=== PATIENT | male | born 1945 | race Two or more races ===

== ENCOUNTER 2022-11-08 09:14 | Outpatient (REF) | payer MEDICARE, SELFPAY ==
[2022-11-08 10:30] LABS: Hematocrit 46.3 % (42.0-52.0); Hemoglobin 15.2 g/dl (14.0-18.0); Mean Corpuscular HGB Conc 32.8 g/dl (31.0-36.0); Mean Corpuscular Hemoglobin 30.7 pg (27.0-33.0); Mean Corpuscular Volume 93.5 fL (80.0-98.0); Mean Platelet Volume 11.2 fL (9.4-12.4); Platelet Count 255 X10*3/uL (160-400); Red Blood Count 4.95 X10*6/uL (4.60-5.80); Red Cell Distribution Width 13.1 % (11.0-16.0); White Blood Count 10.6 X10*3/uL (4.8-10.8)
[2022-11-08 11:18] LABS: Alanine Aminotransferase 14 U/L (0-40); Albumin Level 4.4 g/dL (3.5-5.0); Alkaline Phosphatase 94 U/L (39-117); Anion Gap 16 (12-20); Aspartate Amino Transferase 19 U/L (5-37); Bilirubin Total 0.6 mg/dL (0.0-1.0); Blood Urea Nitrogen 16 mg/dL (9-16); Calcium 9.5 mg/dL (8.4-10.2); Carbon Dioxide 25 mmol/L (22-29); Chloride 105 mmol/L (96-108); Cholesterol 215 mg/dL; Estimated Glomerular Filt Rate 55; Glucose Fasting 132 mg/dL (60-99); HDL Cholesterol 52 mg/dL; LDL Cholesterol Calculated 148 mg/dl; Potassium 3.9 mmol/L (3.3-5.1); Sodium 142 mmol/L (135-145); Total Protein 7.6 g/dL (6.5-8.0); Triglycerides 77 mg/dL
[2022-11-08 11:18] LABS: Microalbum/Creatinine Ratio Ur 146.4 ug/mg cr
== END 2022-11-08 09:15 | disposition home or self-care (01) ==
LOC: HO.LAB 09:14
PROVIDERS: PCP Physician Assistant; Visit Provider Physician Assistant
DX: Z12.5 Encounter for screening for malignant neoplasm of prostate (principal); Z13.1 Encounter for screening for diabetes mellitus; I10 Essential (primary) hypertension
CPT/HCPCS: 36415; 80053; 80061; 82043; 84153; 84443; 85027

== ENCOUNTER 2022-11-16 08:47 | Outpatient (REF) | payer MEDICARE, SELFPAY ==
[2022-11-16 16:35] LABS: Urine Cytology See Pathology rpt
== END 2022-11-16 08:48 | disposition home or self-care (01) ==
LOC: HO.LAB 08:47
PROVIDERS: PCP Physician Assistant; Visit Provider Urology
DX: R97.20 Elevated prostate specific antigen [PSA] (principal); N40.1 Benign prostatic hyperplasia with lower urinary tract symptoms; R31.29 Other microscopic hematuria; R80.9 Proteinuria, unspecified; F17.200 Nicotine dependence, unspecified, uncomplicated; Z71.6 Tobacco abuse counseling
CPT/HCPCS: 51798; 88112; 99202

== ENCOUNTER 2022-12-14 09:53 | Outpatient (REF) | payer MEDICARE, SELFPAY ==
[2022-12-14 11:45] LABS: Estimated Average Glucose 137 mg/dL; Hemoglobin A1c % 6.4 %
[2022-12-14 12:38] LABS: Alanine Aminotransferase 13 U/L (0-40); Albumin Level 4.2 g/dL (3.5-5.0); Alkaline Phosphatase 88 U/L (39-117); Anion Gap 14 (12-20); Aspartate Amino Transferase 18 U/L (5-37); Bilirubin Total 0.7 mg/dL (0.0-1.0); Blood Urea Nitrogen 17 mg/dL (9-16); Calcium 9.2 mg/dL (8.4-10.2); Carbon Dioxide 23 mmol/L (22-29); Chloride 107 mmol/L (96-108); Estimated Glomerular Filt Rate > 60; Glucose Fasting 123 mg/dL (60-99); Potassium 3.9 mmol/L (3.3-5.1); Sodium 140 mmol/L (135-145); Total Protein 7.4 g/dL (6.5-8.0)
[2023-01-05 22:54] LABS: PSA, Ultra Sensitive 6.18 ng/mL
== END 2022-12-14 09:54 | disposition home or self-care (01) ==
LOC: HO.LAB 09:53
PROVIDERS: Urology; PCP Physician Assistant; Visit Provider Physician Assistant
DX: R97.20 Elevated prostate specific antigen [PSA] (principal); R73.01 Impaired fasting glucose; Z12.5 Encounter for screening for malignant neoplasm of prostate
CPT/HCPCS: 36415; 80053; 83036; 84153

== ENCOUNTER 2023-01-10 09:52 | Outpatient (REF) | payer MEDICARE, SELFPAY ==
--- NOTE | ~2023-01-10 | US_ITS ---
EXAMINATION: US RETROPERITONEAL COMPLETE (RENAL) CLINICAL INFORMATION: Elevated prostate-specific antigen. COMPARISON: None available. TECHNIQUE: Real-time imaging of the kidneys and bladder. FINDINGS: RIGHT KIDNEY: 10.3 x 5.7 x 5.2 cm (SAG x AP x TRV). The kidney is normal in size, contour, and echogenicity. Renal cortical thickness is normal. 2 echogenic foci noted in the mid kidney measuring 4 mm and 3 mm in size consistent with nonobstructing calculi. No focal parenchymal lesions or hydronephrosis. LEFT KIDNEY: 10.8 x 5.9 x 5.7 cm (SAG x AP x TRV). The kidney is normal in size, contour, and echogenicity. Renal cortical thickness is normal. There are multiple echogenic foci seen in the left renal pelvis without twinkle artifact that probably represent vascular interfaces. No convincing shadowing calculi or focal parenchymal lesions. No hydronephrosis. BLADDER: Well distended and normal. Bilateral ureteral jets are demonstrated. Prevoid bladder volume is 150 mL. Postvoid bladder volume is 34 mL. Enlarged prostate, volume 161 mL. A large median lobe protrudes into the bladder. US/US retroperitoneal comp IMPRESSION: 1. Right-sided nonobstructing renal calculi. 2. Very large 161 mL prostate with median lobe protruding into the bladder. Postvoid residual is only 34 mL.
== END 2023-01-10 09:53 | disposition home or self-care (01) ==
LOC: HO.US 09:52
PROVIDERS: PCP Physician Assistant; Visit Provider Urology
DX: R97.20 Elevated prostate specific antigen [PSA] (principal); F17.200 Nicotine dependence, unspecified, uncomplicated; N40.1 Benign prostatic hyperplasia with lower urinary tract symptoms
CPT/HCPCS: 76770

== ENCOUNTER → 2023-01-19 08:55 | Outpatient (BNVA) | payer MEDICARE, SELFPAY | PROVIDERS: Visit Provider Urology | DX: R97.20 Elevated prostate specific antigen [PSA] (principal); N40.1 Benign prostatic hyperplasia with lower urinary tract symptoms; R31.29 Other microscopic hematuria; R39.12 Poor urinary stream; F17.210 Nicotine dependence, cigarettes, uncomplicated | CPT/HCPCS: 99212 ==

== ENCOUNTER 2023-02-01 09:13 | Outpatient (AMB) | payer MEDICARE, SELFPAY ==
[2023-02-01 09:18] VITALS: BP 180/80; PULSE 103; O2SAT 98; BMI 24.9
--- NOTE | 2023-02-01 09:18 | MHC.PC.OV ---
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 .. Hypertension: Last visit we started hydrochlorothiazide in transition to amlodipine, blood pressure remains elevated today in office. Patient remains asymptomatic. Denies any side effect from amlodipine or hydrochlorothiazide. PLAN: Will increase his hydrochlorothiazide to 25 for better blood pressure control .. Elevated PSA: Followed by Urology and has been started on finasteride fat mg. He declines prostate biopsy. Laboratory Tests 11/08/22 11/08/22 12/14/22 09:38 09:38 10:21 Hgb 15.2 Fasting Glucose 132 H Cholesterol 215 LDL Cholesterol, C alc 148 PSA Screen 7.30 H PSA Ultra-Sensitiv e 6.18 PFSH Surgical History History of dental surgery History of vasectomy Social History Housing: House Alcohol intake: current Alcohol intake frequency: a few times a week Alcohol type: beer Patient Tobacco Use Status: Current everyday Tobacco user Tobacco use type: Cigarette Cigarettes Per Day: 7 Years Smoked: 40 plus e-Cigarette/Vaping Use: Never Used Second Hand Smoke Exposure: Yes service: No Current occupational status: retired Current occupation: [employer] Cognitive needs: No Hearing needs: No Vision needs: Yes (glasses) Questionnaire PHQ-9 Over the last 2 weeks, how often have you been bothered by any of the following problems? 1. Little interest or pleasure in doing things: not at all 2. Feeling down, depressed, or hopeless: not at all 3. Trouble falling or staying asleep, or sleeping too much: not at all 4. Feeling tired or having little energy: not at all 5. Poor appetite or overeating: not at all 6. Feeling bad about yourself - or that you are a failure or have let yourself or your family down: not at all 7. Trouble concentrating on things, such as reading the newspaper or watching television: not at all 8. Moving or speaking so slowly that other people could have noticed. Or the opposite - being so fidgety or restless that you have been moving around a lot more than usual: not at all 9. Thoughts that you would be better off or of hurting yourself in some way: not at all Total score: 0 Source: Developed by Drs. He Cardozo, Damaris Galindo, Madan Jacome and colleagues, with an educational vonda from [employer]. Thrive Questionnaire Date Thrive assessed: 11/02/22 What is your living situation today?: I have a steady place to live Within the past 12 months, did the food you bought not last and you didn't have the money to get more?: Never true Within the past 12 months, did you worry whether your food would run out before you got money to buy more?: Never true Do you have trouble paying for medicines?: No Do you have trouble getting transportation to medical appointments?: No Do you have trouble paying your heating and electricity bill?: No Do you have trouble taking care of your child, family member or friend?: No Do you have trouble with day-to-day activities such as bathing, preparing meals, shopping, managing finances, etc.?: No Are you currently unemployed and looking for a job?: No Are you interested in more education?: No ROSANA-7 AMB Questionnaire ROSANA-7 Date ROSANA - 7 assessed: 11/02/22 Feeling nervous, anxious, or on edge: 0 = Not at all Not being able to stop or control worryin = Not at all Worrying too much about different things: 0 = Not at all Trouble relaxin = Not at all Being so restless that it is hard to sit still: 0 = Not at all Becoming easily annoyed or irritable: 0 = Not at all Feeling afraid as if something awful might happen: 0 = Not at all Total ROSANA-7 score (0-4 normal; 5-9 mild; 10-14 moderate; 15-21 severe): 0 Source: Developed by Drs. He Cardozo, Damaris Galindo, Madan Jacome and colleagues, with an educational vonda from [employer]. Physical exam (Primary Care) Vital Signs: Last Vital Signs Pulse 103 H 02/01/23 09:18 BP 180/80 H 02/01/23 09:18 Pulse Ox 98 02/01/23 09:18 Oxygen Delivery Method Room Air 02/01/23 09:18 BMI result Body Mass Index 24.9 Tobacco/Smoking Status: Tobacco use Status Tobacco use date assessed 11/02/22 02/01/23 09:20 Patient Tobacco Use Status Current everyday Tobacco 02/01/23 09:20 Tobacco use type Cigarette 02/01/23 09:20 e-Cigarette/Vaping Use Never Used 02/01/23 09:20 PHQ-9: PHQ-9 Score PHQ-9: Total score 0 02/01/23 09:26 Thrive Assessment: Date of Thrive Assessment Date Thrive assessed 11/02/22 02/01/23 09:20 Assessment and Plan Assessment & Plan (1) HTN (hypertension): Code(s): I10 - Essential (primary) hypertension Qualifiers: Hypertension type: primary hypertension Qualified Code(s): I10 - Essential (primary) hypertension Plan: Patient's blood pressure remains elevated 170 systolic. Fortunately remains asymptomatic. Will increase his hydrochlorothiazide to 25 mg. Continue amlodipine 10 mg. Again reinforce low-sodium diet. Advised to continue monitoring blood pressure at home with goal blood pressure to be below 140/90 (2) Tobacco dependence: Code(s): F17.200 - Nicotine dependence, unspecified, uncomplicated Plan: Unfortunately continues to smoke and patient has been working on reducing his smoking. Offered nicotine replacement though patient declines (3) Elevated PSA: Code(s): R97.20 - Elevated prostate specific antigen [PSA] (4) BPH (benign prostatic hyperplasia): Code(s): N40.0 - Benign prostatic hyperplasia without lower urinary tract symptoms Qualifiers: Lower urinary tract symptom presence: symptoms present Lower urinary tract symptom detail: weak urinary stream Qualified Code(s): N40.1 - Benign prostatic hyperplasia with lower urinary tract symptoms; R39.12 - Poor urinary stream Plan: Patient followed by Urology and has been set up for CT of kidneys. Has been started on finasteride for his BPH. Does still report at times having nocturia (5) Elevated fasting blood sugar: Code(s): R73.01 - Impaired fasting glucose Plan: Continue to follow fasting blood sugar Medications: New hydrochlorothiazide 25 mg PO DAILY 30 days 30 tabs 1RF I10 - Essential (primary) hypertension hydrochlorothiazide 25 mg PO DAILY 30 days 30 tabs 1RF I10 - Essential (primary) hypertension Discontinued hydrochlorothiazide Discontinued Reason: Doctor's Order 12.5 mg PO DAILY 30 days 30 tabs 1RF I10 - Essential (primary) hypertension Coding Level of Care Code Est Pt Level 4 (22427) Diagnoses HTN (hypertension) I10 Hypertension type: primary hypertension Tobacco dependence F17.200 Elevated PSA R97.20 BPH (benign prostatic hyperplasia) N40.1; R39.12 Lower urinary tract symptom presence: symptoms present Lower urinary tract symptom detail: weak urinary stream Elevated fasting blood sugar R73.01
[2023-02-01 09:41] VITALS: BP 170/80
== END 2023-02-01 09:47 | disposition home or self-care (01) ==
PROVIDERS: PCP Physician Assistant; Visit Provider Physician Assistant
DX: I10 Essential (primary) hypertension (principal); F17.200 Nicotine dependence, unspecified, uncomplicated; R97.20 Elevated prostate specific antigen [PSA]; N40.1 Benign prostatic hyperplasia with lower urinary tract symptoms; R39.12 Poor urinary stream; R73.01 Impaired fasting glucose
CPT/HCPCS: 99214

== ENCOUNTER 2023-03-08 09:13 | Outpatient (AMB) | payer MEDICARE, SELFPAY ==
[2023-03-08 09:15] VITALS: BP 175/110; PULSE 101; O2SAT 97; BMI 25.0
--- NOTE | 2023-03-08 09:15 | A.OFFPC_ITS ---
Vital Signs 03/08/23 09:15 Height 5 ft 10 in Weight 174 lb 8 oz BMI 25.0 BP 175/110 H Blood Pressure Location Lt brachial Position Sitting Pulse 101 H Pulse Source Pulse Oximeter Pulse Oximetry (%) 97 Oxygen Delivery Method Room Air Intake Visit Reasons: f/u HTN Allergies No Known Allergies Allergy (Verified 03/08/23 09:28) Medication List - Last Reconciled 03/08/23 by Guillermo Nicole PA-C amlodipine 10 mg PO DAILY 30 days finasteride (Proscar) 5 mg PO DAILY 90 days hydrochlorothiazide 25 mg PO DAILY 30 days miscellaneous medical supply (Blood Pressure Cuff) As directed Tobacco use date assessed: 11/02/22 Dental Screening Dental Screen Date: 03/08/23 Did you have a dental visit in the last 12 months?: No Did you have a dental problem in the last 6 months where you did not have access to dental care?: No Was dental information given to patient?: Patient declined HPI f/u HTN HPI Details Patient is 77-year-old male here today for follow-up visit, has past medical history significant for retention, tobacco dependency, BPH, protein urea. .. Hypertension:? Last visit we started hydrochlorothiazide and additionally amlodipine, blood pressure remains elevated today in office.? Patient remains asymptomatic without chest pain, shortness of breath, headaches vision issues.. Denies any side effect from amlodipine or hydrochlorothiazide. PLAN:? Will add on lisinopril. --> AGAIN WE DISCUSSED TESTING FOR SECONDARY REASONS FOR HIS ELEVATED BLOOD PRESSURE. ULTRASOUND RENAL DOPPLER AND ECHOCARDIOGRAM HAVE BEEN DISCUSSED THOUGH PATIENT WOULD LIKE TO HOLD OFF ON TRYING NEW BLOOD PRESSURE MEDICATION. ... Tobacco dependency: Unfortunately patient continues to smoke and feels is very difficult to completely quit. He reports his trigger is just stress in his life prior [facility] Surgical History History of dental surgery History of vasectomy Social History Housing: House Alcohol intake: current Alcohol intake frequency: a few times a week Alcohol type: beer Patient Tobacco Use Status: Current everyday Tobacco user Tobacco use type: Cigarette Cigarettes Per Day: 5 Years Smoked: 40 plus e-Cigarette/Vaping Use: Never Used Second Hand Smoke Exposure: Yes service: No Current occupational status: retired Current occupation: [employer] Cognitive needs: No Hearing needs: No Vision needs: Yes (glasses) Questionnaire PHQ-9 Over the last 2 weeks, how often have you been bothered by any of the following problems? 1. Little interest or pleasure in doing things: not at all 2. Feeling down, depressed, or hopeless: not at all 3. Trouble falling or staying asleep, or sleeping too much: not at all 4. Feeling tired or having little energy: not at all 5. Poor appetite or overeating: not at all 6. Feeling bad about yourself - or that you are a failure or have let yourself or your family down: not at all 7. Trouble concentrating on things, such as reading the newspaper or watching television: not at all 8. Moving or speaking so slowly that other people could have noticed. Or the opposite - being so fidgety or restless that you have been moving around a lot more than usual: not at all 9. Thoughts that you would be better off or of hurting yourself in some way: not at all Total score: 0 Source: Developed by Drs. He Cardozo, Damaris Galindo, Madan Jacome and colleagues, with an educational vonda from [email or web address]. Thrive Questionnaire Date Thrive assessed: 11/02/22 What is your living situation today?: I have a steady place to live Within the past 12 months, did the food you bought not last and you didn't have the money to get more?: Never true Within the past 12 months, did you worry whether your food would run out before you got money to buy more?: Never true Do you have trouble paying for medicines?: No Do you have trouble getting transportation to medical appointments?: No Do you have trouble paying your heating and electricity bill?: No Do you have trouble taking care of your child, family member or friend?: No Do you have trouble with day-to-day activities such as bathing, preparing meals, shopping, managing finances, etc.?: No Are you currently unemployed and looking for a job?: No Are you interested in more education?: No AUDIT C Alcohol Use Questionnaire (AUDIT-C) 1. How often do you have a drink containing alcohol?: 2-3 times a week 2. How many drinks containing alcohol do you have on a typical day when you are drinking?: 1 or 2 3. How often do you have six or more drinks on one occasion?: Never Total Score: 3 ROSANA-7 AMB Questionnaire ROSANA-7 Date ROSANA - 7 assessed: 11/02/22 Feeling nervous, anxious, or on edge: 0 = Not at all Not being able to stop or control worryin = Not at all Worrying too much about different things: 0 = Not at all Trouble relaxin = Not at all Being so restless that it is hard to sit still: 0 = Not at all Becoming easily annoyed or irritable: 0 = Not at all Feeling afraid as if something awful might happen: 0 = Not at all Total ROSANA-7 score (0-4 normal; 5-9 mild; 10-14 moderate; 15-21 severe): 0 Source: Developed by Drs. He Cardozo, Damaris Galindo, Madan Jacome and colleagues, with an educational vonda from [email or web address]. Review of Systems Const Denies headache(s) Eyes Denies loss of vision ENT Denies vertigo, Denies dizziness, Denies headache(s) and Denies sore throat Card Denies chest pain, Denies leg edema and Denies lightheadedness Resp Denies cough, Denies hemoptysis and Denies wheezing GI Denies abdominal pain, Denies melena, Denies constipation, Denies diarrhea and Denies vomiting Denies dysuria, Denies urinary frequency and Denies urinary urgency Musc Denies arthralgias, Denies joint swelling, Denies numbness and Denies tingling Neuro Denies Abnormal speech present, Denies behavioral changes, Denies vertigo, Denies dizziness, Denies headache(s), Denies loss of vision, Denies memory loss, Denies numbness and Denies tingling Psych Denies anxiety, Denies behavioral changes, Denies depression, Denies memory loss and Denies panic attacks Eder/Lymph Denies easy bleeding and Denies easy bruising Aller/Immun Denies wheezing Physical exam (Primary Care) Vital Signs: Last Vital Signs Pulse 101 H 03/08/23 09:15 BP 175/110 H 03/08/23 09:15 Pulse Ox 97 03/08/23 09:15 Oxygen Delivery Method Room Air 03/08/23 09:15 BMI result Body Mass Index 25.0 Tobacco/Smoking Status: Tobacco use Status Tobacco use date assessed 11/02/22 03/08/23 09:23 Patient Tobacco Use Status Current everyday Tobacco 03/08/23 09:23 Tobacco use type Cigarette 03/08/23 09:23 e-Cigarette/Vaping Use Never Used 03/08/23 09:23 Are you ready to quit: No Tobacco cessation counseling provided: Yes Relapse Prevention: discussed the importance of a supportive environment, discussed negative mood or depression after quitting, weight gain after smoking is common and discussed dietary, exercise and/or lifestyle changes Number of minutes spent counselin CPT code: 71367 - 4-10 Minutes PHQ-9: PHQ-9 Score PHQ-9: Total score 0 03/08/23 09:31 Thrive Assessment: Date of Thrive Assessment Date Thrive assessed 11/02/22 03/08/23 09:23 Const General: healthy appearing, no acute distress, alert and awake Nutritional Appearance: well nourished Orientation/consciousness: oriented to person, oriented to place and oriented to time HENMT Ears: TM's normal bilaterally General nose exam: Normal nasal mucous membranes and turbinates present Eyes Conjunctivae: conjunctivae normal Sclerae: sclerae normal Pupils: Equal, round and reactive pupils present Neck Neck: Yes no lymphadenopathy and Yes no JVD Thyroid: Thyroid normal Carotids: no bruits Resp Effort & Inspection: normal respiratory effort and not tachypneic Auscultation: no crackles, no rales, no rhonchi and no wheezes Cardio Rate: regular rate Rhythm: regular rhythm Heart sounds: no murmurs and normal S1 and S2 GI Palpation (GI): Soft to palpation, nontender, no hepatomegaly and no splenomegaly Auscultation: normal bowel sounds Skin General skin exam: no rashes or lesions noted and dry skin Neuro General: oriented to person, oriented to place and oriented to time Cranial nerves: Yes Equal, round and reactive pupils present Speech: No Abnormal speech present Gait exam (Neuro): Normal gait present Motor exam (neuro): no tremor noted Extrem Right upper extremity: full ROM Left upper extremity: full ROM Right lower extremity: full ROM; no edema Left lower extremity: full ROM; no edema Psych Mental Status: mental status grossly normal Speech and movement: Normal speech and movement present Affect: normal affect Attitude: cooperative Thought process: Normal thought process present Assessment and Plan Assessment & Plan (1) HTN (hypertension): Code(s): I10 - Essential (primary) hypertension Qualifiers: Hypertension type: primary hypertension Qualified Code(s): I10 - Essential (primary) hypertension Plan: Blood pressure remains elevated 170 is over 90s. At home sometimes does get 130s over 80s. He remains asymptomatic without any headaches, vision issues or chest discomforts. Will add on lisinopril 20 mg to his blood pressure med regime for better blood pressure control. --> WE DID DISCUSS SURGEON FOR SECONDARY CAUSES HYPERTENSION SUCH RENAL ARTERY STENOSIS AND GETTING AN ECHOCARDIOGRAM OF HEART TO RULE OUT STRUCTURAL HEART DISEASE THOUGH PATIENT WOULD LIKE TO HOLD OFF FOR NOW AND TRY 3RD BLOOD PRESSURE MEDICATION. (2) Tobacco dependence: Code(s): F17.200 - Nicotine dependence, unspecified, uncomplicated Plan: Patient does understand he needs to quit smoking. Offered him nicotine replacement and or medication to help him quit though he declines at this time. He would like to try to quit cold turkey Medications: New lisinopril-hydrochlorothiazide 20-25 mg 1 tab PO DAILY 30 days 30 tabs 1RF I10 - Essential (primary) hypertension On Hold hydrochlorothiazide Hold Comment: Doctor's Order 25 mg PO DAILY 30 days 30 tabs 1RF I10 - Essential (primary) hypertension Coding Level of Care Code Est Pt Level 3 (76736) Diagnoses HTN (hypertension) I10 Hypertension type: primary hypertension Tobacco dependence F17.200 Additional Codes Vital Signs *Quality* - CPT code: 99738 - 4-10 Minutes ([id number])
== END 2023-03-08 10:16 | disposition home or self-care (01) ==
PROVIDERS: PCP Physician Assistant; Visit Provider Physician Assistant
DX: I10 Essential (primary) hypertension (principal); F17.210 Nicotine dependence, cigarettes, uncomplicated
CPT/HCPCS: 99213

== ENCOUNTER 2023-04-03 08:41 | Outpatient (AMB) | payer MEDICARE, SELFPAY ==
[2023-04-03 08:59] VITALS: BP 172/86; PULSE 88; O2SAT 97; BMI 25.3
--- NOTE | 2023-04-03 08:59 | A.OFFPC_ITS ---
Vital Signs 04/03/23 08:59 Height 5 ft 10 in Weight 176 lb 4 oz BMI 25.3 BP 172/86 H Blood Pressure Location Lt brachial Position Sitting Pulse 88 Pulse Source Pulse Oximeter Pulse Oximetry (%) 97 Oxygen Delivery Method Room Air Intake Visit Reasons: f.u HTN Ventilating Expert Required: No Accompanied by: Self / Same As Patient Allergies No Known Allergies Allergy (Verified 04/03/23 09:11) Medication List - Last Reconciled 04/03/23 by Guillermo Nicole PA-C amlodipine 10 mg PO DAILY 30 days finasteride (Proscar) 5 mg PO DAILY 90 days hydrochlorothiazide 25 mg PO DAILY 30 days lisinopril-hydrochlorothiazide 20-25 mg 1 tab PO DAILY 30 days miscellaneous medical supply (Blood Pressure Cuff) As directed Tobacco use date assessed: 11/02/22 Fall risk assessment: No Falls in past year Last assessed Fall Risk: 04/03/23 Dental Screening Dental Screen Date: 04/03/23 Did you have a dental visit in the last 12 months?: No Did you have a dental problem in the last 6 months where you did not have access to dental care?: No Was dental information given to patient?: Yes HPI f.u HTN HPI Details Patient is 77-year-old male here today for follow-up visit, has past medical history significant for retention, tobacco dependency, BPH, protein urea. Patient is due for cataract removal on April 12 .. Hypertension:? Last visit we started lisinopril to his hydrochlorothiazide and additionally amlodipine, blood pressure remains elevated today in office.? He reports he does monitors blood pressure at home and still does report readings 150-160 systolic. Patient remains asymptomatic without chest pain, shortness of breath, headaches vision issues.. Denies any side effect from amlodipine or hydrochlorothiazide. PLAN:? Will increase dose of lisinopril to maximal dose. --> AGAIN WE DISCUSSED TESTING FOR NATASHA ORTIZ REASONS FOR HIS ELEVATED BLOOD PRESSURE. ULTRASOUND RENAL DOPPLER AND ECHOCARDIOGRAM HAVE BEEN DISCUSSED THOUGH PATIENT WOULD LIKE TO HOLD OFF ON TRYING NEW BLOOD PRESSURE MEDICATION. ... Tobacco dependency: Unfortunately patient continues to smoke and feels is very difficult to completely quit. He reports his trigger is just stress in his life prior [facility] Surgical History History of dental surgery History of vasectomy Social History Housing: House Alcohol intake: current Alcohol intake frequency: a few times a week Alcohol type: beer Patient Tobacco Use Status: Current everyday Tobacco user Tobacco use type: Cigarette Cigarettes Per Day: 5 Years Smoked: 40 plus e-Cigarette/Vaping Use: Never Used Second Hand Smoke Exposure: Yes service: No Current occupational status: retired Current occupation: [employer] Cognitive needs: No Hearing needs: No Vision needs: Yes (glasses) Questionnaire Thrive Questionnaire Date Thrive assessed: 11/02/22 ROSANA-7 AMB Questionnaire ROSANA-7 Date ROSANA - 7 assessed: 11/02/22 Source: Developed by Drs. He Cardozo, Damaris Galindo, Madan Jacome and colleagues, with an educational vonda from [employer] Review of Systems Const Denies headache(s) Eyes Denies loss of vision ENT Denies vertigo, Denies dizziness, Denies headache(s) and Denies sore throat Card Denies chest pain, Denies leg edema and Denies lightheadedness Resp Denies cough, Denies hemoptysis and Denies wheezing GI Denies abdominal pain, Denies melena, Denies constipation, Denies diarrhea and Denies vomiting Denies dysuria, Denies urinary frequency and Denies urinary urgency Musc Denies arthralgias, Denies joint swelling, Denies numbness and Denies tingling Neuro Denies Abnormal speech present, Denies behavioral changes, Denies vertigo, Denies dizziness, Denies headache(s), Denies loss of vision, Denies memory loss, Denies numbness and Denies tingling Psych Denies anxiety, Denies behavioral changes, Denies depression, Denies memory loss and Denies panic attacks Eder/Lymph Denies easy bleeding and Denies easy bruising Aller/Immun Denies wheezing Physical exam (Primary Care) Vital Signs: Last Vital Signs Pulse 88 04/03/23 08:59 BP 172/86 H 04/03/23 08:59 Pulse Ox 97 04/03/23 08:59 Oxygen Delivery Method Room Air 04/03/23 08:59 BMI result Body Mass Index 25.3 Tobacco/Smoking Status: Tobacco use Status Tobacco use date assessed 11/02/22 04/03/23 09:05 Patient Tobacco Use Status Current everyday Tobacco 04/03/23 09:05 Tobacco use type Cigarette 04/03/23 09:05 e-Cigarette/Vaping Use Never Used 04/03/23 09:05 Are you ready to quit: No Tobacco cessation counseling provided: Yes Relapse Prevention: discussed the importance of a supportive environment, discussed negative mood or depression after quitting, weight gain after smoking is common and discussed dietary, exercise and/or lifestyle changes Number of minutes spent counselin CPT code: 15029 - 4-10 Minutes Thrive Assessment: Date of Thrive Assessment Date Thrive assessed 11/02/22 04/03/23 09:05 Const General: healthy appearing, no acute distress, alert and awake Nutritional Appearance: well nourished Orientation/consciousness: oriented to person, oriented to place and oriented to time HENMT Ears: TM's normal bilaterally General nose exam: Normal nasal mucous membranes and turbinates present Eyes Conjunctivae: conjunctivae normal Sclerae: sclerae normal Pupils: Equal, round and reactive pupils present Neck Neck: Yes no lymphadenopathy and Yes no JVD Thyroid: Thyroid normal Carotids: no bruits Resp Effort & Inspection: normal respiratory effort and not tachypneic Auscultation: no crackles, no rales, no rhonchi and no wheezes Cardio Rate: regular rate Rhythm: regular rhythm Heart sounds: no murmurs and normal S1 and S2 GI Palpation (GI): Soft to palpation, nontender, no hepatomegaly and no splenomegaly Auscultation: normal bowel sounds Skin General skin exam: no rashes or lesions noted and dry skin Neuro General: oriented to person, oriented to place and oriented to time Cranial nerves: Yes Equal, round and reactive pupils present Speech: No Abnormal speech present Gait exam (Neuro): Normal gait present Motor exam (neuro): no tremor noted Extrem Right upper extremity: full ROM Left upper extremity: full ROM Right lower extremity: full ROM; no edema Left lower extremity: full ROM; no edema Psych Mental Status: mental status grossly normal Speech and movement: Normal speech and movement present Affect: normal affect Attitude: cooperative Thought process: Normal thought process present Assessment and Plan Assessment & Plan (1) Pre-op evaluation: Code(s): Z01.818 - Encounter for other preprocedural examination Plan: Patient is due for cataract removal, April 12. Patient's blood pressure remains high though now medicated and is asymptomatic. Patient is clear for elective cataract removal. Dr. Lucas at [facility] [phone] (2) HTN (hypertension): Code(s): I10 - Essential (primary) hypertension Qualifiers: Hypertension type: primary hypertension Qualified Code(s): I10 - Essential (primary) hypertension Plan: Blood pressure remains high today in office. He reports that home blood pressures still 150s to 160 systolic. Fortunately patient remains asymptomatic. Will increase his lisinopril dose 40 mg. AGAIN ADVISED ON EVALUATED FOR SECONDARY FORMS OF HYPERTENSION WITH RENAL ULTRASOUND TO EVALUATE FOR RENAL ARTERY STENOSIS. ECHOCARDIOGRAM TO EVALUATE FOR CARDIAC STRUCTURAL HEART DISEASE THOUGH PATIENT DECLINES AT THIS TIME. (3) Tobacco dependence: Code(s): F17.200 - Nicotine dependence, unspecified, uncomplicated Plan: Unfortunately continues to smoke though has cut down significantly. Not interested in nicotine replacement at this time. Medications: New lisinopril 40 mg PO DAILY 30 days 30 tabs 1RF Discontinued lisinopril-hydrochlorothiazide 20-25 mg Discontinued Reason: Doctor's Order 1 tab PO DAILY 30 days 30 tabs 1RF I10 - Essential (primary) hypertension Resumed hydrochlorothiazide 25 mg PO DAILY 30 days 30 tabs 1RF I10 - Essential (primary) hypertension hydrochlorothiazide 25 mg PO DAILY 30 days 30 tabs 1RF I10 - Essential (primary) hypertension Coding Level of Care Code Est Pt Level 4 (26491) Diagnoses Pre-op evaluation Z01.818 Primary hypertension I10 Hypertension type: primary hypertension Tobacco dependence F17.200 Additional Codes Vital Signs *Quality* - CPT code: 02583 - 4-10 Minutes ([id number])
== END 2023-04-03 09:37 | disposition home or self-care (01) ==
PROVIDERS: PCP Physician Assistant; Visit Provider Physician Assistant
DX: I10 Essential (primary) hypertension (principal); Z01.818 Encounter for other preprocedural examination; F17.210 Nicotine dependence, cigarettes, uncomplicated
CPT/HCPCS: 99214

== ENCOUNTER 2023-12-11 09:14 | Outpatient (AMB) | payer MEDICARE, SELFPAY ==
--- NOTE | 2023-12-11 10:05 | AM.OFFVISMDC ---
Intake Vital Signs 12/11/23 10:06 Height 5 ft 10 in Weight 184 lb 2 oz BMI 26.4 BP 230/100 H Blood Pressure Location Lt brachial Position Sitting Pulse 88 Pulse Source Pulse Oximeter Pulse Oximetry (%) 97 Oxygen Delivery Method Room Air Intake Visit Reasons: AWV Can Conveyor Feeder Required: No Accompanied by: Self / Same As Patient Allergies No Known Allergies Allergy (Verified 12/11/23 10:21) Medication List - Last Reconciled 12/11/23 by Guillermo Nicole PA-C amlodipine 10 mg PO DAILY 30 days finasteride (Proscar) 5 mg PO DAILY 90 days hydrochlorothiazide 25 mg PO DAILY 30 days lisinopril 40 mg PO DAILY 30 days miscellaneous medical supply (Blood Pressure Cuff) As directed HPI AWV HPI Details Patient is 77-year-old male here today for an annual wellness visit. has past medical history significant for retention, tobacco dependency, BPH, protein urea. Today we discussed end of life planning and [place] of care. Patient given a MOLST form today in office. Hypertension: Blood pressure still remains an issue. Very elevated today in office has been off all his blood pressure medication because apparently things these do not help him. * HE IS VERY SET AGAINST ANY FURTHER WORKUP OR MEDICATIONS. FORTUNATELY HE IS ASYMPTOMATIC AND DENIES ANY DIZZINESS, HEADACHES, VISION ISSUES OR CHEST DISCOMFORTS. ADVISED TO CONSIDER A RENAL DOPPLER ULTRASOUND TO EVALUATE FOR RENAL ARTERY STENOSIS A SECONDARY FORM OF HYPERTENSION. WROTE THIS DOWN TO DISCUSS WITH HIS FAMILY. HPI Comments History of Present Illness Details reviewed past medical history- yes reviewed surgical / hospitalization history- yes reviewed current medications- yes reviewed family history- yes home safety throw rugs? grab bars? raised toilet seat? working smoke detectors? activities of daily living difficulty bathing or showering? difficulty dressing? difficulty using the toilet? difficulty getting in and out of bed? difficulty walking? receives help from other person's with any of the above tasks? instrumental activities of daily living uses telephone - gets to place out of walking distance- go shopping for groceries- repairs own meals- does own minor home maintenance- does own laundry- does own housework- manages own money- currently takes medication- end of life planning discussed advanced directives- yes advanced directives on file? discussed wishes expressed in advanced directives. fall risk have you had any falls with injuries in the past year? have you had 2 or more falls in the past year? fall risk assessment: [facility] Surgical History History of dental surgery History of vasectomy Social History Housing: House Alcohol intake: current Alcohol intake frequency: a few times a week Alcohol type: beer Patient Tobacco Use Status: Current everyday Tobacco user Tobacco use type: Cigarette Cigarettes Per Day: 5 Years Smoked: 40 plus e-Cigarette/Vaping Use: Never Used Second Hand Smoke Exposure: Yes service: No Current occupational status: retired Current occupation: [employer] Cognitive needs: No Hearing needs: No Vision needs: Yes (glasses) Questionnaire Medicare Wellness Checkup [age] What gender do you identify with?: male During the past 4 weeks, how much have you been bothered by emotional problems such as feeling anxious, depressed, irritable, sad or downhearted, and blue?: not at all During the past 4 weeks, has your physical & emotional health limited your social activities with family, friends, neighbors, or groups?: not at all During the past 4 weeks, how much bodily pain have you generally had?: no pain During the past 4 weeks, was someone available to help you if you needed & wanted help?: yes, as much as I wanted During the past 4 weeks, what was the hardest physical activity you could do for at least 2 minutes?: moderate Can you get to places out of walking distance without help? (For eg., can you travel alone on buses, taxis or drive your car?): Yes Can you go shopping for groceries or clothes without someone's help?: Yes Can you prepare your own meals?: Yes Can you do your housework without help?: Yes Because of any health problems, do you need the help of another person with your personal care needs such as eating, bathing, dressing or getting around the house?: No Can you handle your own money without help?: Yes During the past 4 weeks, how would you rate your health in general?: good During the past 4 weeks how have things been going for you?: good & bad parts about equal Are you having difficulties driving your car?: no Do you always fasten your seat belt when you are in a car?: yes, usually During past 4 weeks, have you been bothered by the following: never: Falling or dizzy when standing up, Sexual problems?, Trouble eating well?, Teeth or denture problems?, Problems using the telephone? and Tiredness or fatigue? Have you fallen 2 or more times in the past year?: No Are you afraid of falling?: No Are you a smoker?: yes, and I might quit During the past 4 weeks, how many drinks of wine, beer, or other alcoholic beverages did you have?: 1 drink or less per week Do you exercise for about 20 minutes 3 or more times a week?: no, I usually do not exercise this much Have you been given information to help with the following?: yes: Keeping track of your medications? and no: Hazards in your house that might hurt you? How often do you have trouble taking medicines the way you have been told to take them?: I always take medicine as prescribed How confident are you that you can control & manage most of your health problems?: very confident What is your race?: Other (Pt refuse ) Mini Mental State Exam (MMSE) Orientation What is the (year) (season) (date) (day) (month)?: year and season Where are we (state) (county) (town or city) (hospital) (floor)?: state and town or city Attention & Calculation (CHOOSE ONE) Ask pt to begin with 100 & count backward by 7. Stop after 5 repeats. If pt cannot ask them to spell the word WORLD backward.: 93 and 86 Spell WORLD backwards (DLROW): 5 letters Score Score: 11 Activity of Daily Living Bathing - sponge bath, tub bath or shower: receives no assistance (gets in/out by self, if usual bathing means Dressing - getting clothes from closets & drawers, including inner/outer garments & fasteners.: gets clothes & gets completely dressed without help Toileting - going to the 'toilet room' for urine/bowel elimination & cleaning self/arranging clothes: goes to toilet room, cleans self, arranges clothes without help Transfer: moves in & out of bed and chair without help (may use support object) Continence: controls urination/bowel movements completely by self Feeding: feeds self without help Total Score: 0 Information obtained from: patient Using telephone: independent Traveling: independent Shopping: independent Preparing meals: independent Housework: independent Taking medicine: independent Managing money: independent PHQ-9 Over the last 2 weeks, how often have you been bothered by any of the following problems? 1. Little interest or pleasure in doing things: not at all 2. Feeling down, depressed, or hopeless: not at all 3. Trouble falling or staying asleep, or sleeping too much: more than half the days 4. Feeling tired or having little energy: several days 5. Poor appetite or overeating: not at all 6. Feeling bad about yourself - or that you are a failure or have let yourself or your family down: not at all 7. Trouble concentrating on things, such as reading the newspaper or watching television: not at all 8. Moving or speaking so slowly that other people could have noticed. Or the opposite - being so fidgety or restless that you have been moving around a lot more than usual: not at all 9. Thoughts that you would be better off or of hurting yourself in some way: not at all Total score: 3 Depression Screening Interpretation: Positive Depression Screening Follow-up: Existing condition Depression Screening Done: Yes [id number] - PHQ-9 Billing: Yes Source: Developed by Drs. He Cardozo, Damaris Galindo, Madan Jacome and colleagues, with an educational vodna from [employer]. Thrive Questionnaire Date Thrive assessed: 12/11/23 I am a: Patient What is your living situation today?: I have a steady place to live Within the past 12 months, did the food you bought not last and you didn't have the money to get more?: Never true Within the past 12 months, did you worry whether your food would run out before you got money to buy more?: Never true Do you have trouble paying for medicines?: No Do you have trouble getting transportation to medical appointments?: No Do you have trouble paying your heating and electricity bill?: No Do you have trouble taking care of your child, family member or friend?: No Do you have trouble with day-to-day activities such as bathing, preparing meals, shopping, managing finances, etc.?: No Are you currently unemployed and looking for a job?: No Are you interested in more education?: No Please select the resources that you would like help with: None Currently or been in a relationship where the following occur: no concerns reported THRIVE Score: 0 Physical Exam Vital Signs: Last Vital Signs Pulse 88 12/11/23 10:06 BP 230/100 H 12/11/23 10:06 Pulse Ox 97 12/11/23 10:06 Oxygen Delivery Method Room Air 12/11/23 10:06 BMI result Body Mass Index 26.4 HEENT Other: hearing screening whisper test- failed in right ear Eyes Other: vision screening- 20/20 OS OD OU Other: urinary incontinence? no Neuro Other: balance Romberg- normal tandem walk test- able walk-in turned test- able rise from sit to stand- within 2 seconds Assessment & Plan Assessment & Plan (1) Medicare annual wellness visit, initial: Code(s): Z00.00 - Encounter for general adult medical examination without abnormal findings Plan: As per HPI Plan OF NOTE DID DISCUSS HIS ELEVATED BLOOD PRESSURE AND PATIENT IS NOT INTERESTED IN FURTHER MEDICATION OR WORKUP TO EVALUATE FOR SECONDARY FORMS OF HYPERTENSION AT THIS TIME. HE IS ASYMPTOMATIC WITHOUT ANY HEADACHE, CHEST DISCOMFORTS, PALPITATIONS OR DIZZINESS. UNFORTUNATELY CONTINUES TO SMOKE. DID ADVISE HIM TO BE EVALUATED AT ER IF SYMPTOMS ABOVE STATED OCCUR. DID ADVISE HIM TO CONSIDER EXPLORING SECONDARY FORMS OF HYPERTENSION AND HE IS CONSIDERING. Quality Reporting (2019) Depression/Bipolar (159/160/161/177) PHQ-9: Total score: 3 Coding Level of Care Code Medicare First (G0438) Diagnoses Medicare annual wellness visit, initial Z00.00 CPT Codes Advance Care Planning - Time spent: 1-15 minutes, not on file ([id number]) Advance Care Planning Advance Care Planning discussion: Exists, not on file Date of discussion: 12/11/23 Forms completed: MOLST Time spent: 1-15 minutes, not on file Actual minutes spent: 4
[2023-12-11 10:06] VITALS: BP 230/100; PULSE 88; O2SAT 97; BMI 26.4
== END 2023-12-11 10:44 | disposition home or self-care (01) ==
PROVIDERS: Visit Provider Physician Assistant
DX: Z00.00 Encounter for general adult medical examination without abnormal findings (principal)
CPT/HCPCS: 1124F; G0438

== ENCOUNTER 2024-09-14 09:04 | Inpatient (IN) | payer MEDICARE, SELFPAY ==
[2024-09-14] VITALS (16 sets, daily range): BP systolic 162–227; BP diastolic 59–129; PULSE 62–86; RESP 17–21; TEMP 36.5–36.7; O2SAT 95–100; BMI 25.7
--- NOTE | ~2024-09-14 | US_ITS ---
EXAMINATION: ULTRASOUND RENAL WITH DOPPLER CLINICAL INFORMATION: Uncontrolled hypertension. COMPARISON: No prior renal Doppler. Retroperitoneal ultrasound 01/10/2023. TECHNIQUE: Real-time grayscale, color Doppler, and duplex Doppler evaluation of the kidneys and renal vasculature was performed. FINDINGS: RENAL MEASUREMENTS: Right: 10.4 x 6.5 x 5.6 cm (Sag x AP x TV); normal sonographic appearance. Left: 11.7 x 6.0 x 5.4 cm (Sag x AP x TV); normal sonographic appearance. No hydronephrosis. Normal cortical echogenicity and thickness. No suspicious masses. No definite calculi. Spectral Doppler analysis: Right Kidney: -Peak systolic velocity in the proximal right renal artery = 81.5 cm/s. Normal waveforms. -Peak systolic velocity in the mid right renal artery = 114 cm/s. Normal waveforms. -Peak systolic velocity in the distal right renal artery = 104 cm/s. Normal waveforms. -Patent right renal vein. -Upper pole interlobar artery resistive index of 0.77. -Midpole interlobar artery resistive index of 0.68. -Lower pole interlobar artery resistive index of 0.76. RAR right = 1.2 Left Kidney: -Peak systolic velocity in the proximal left renal artery = 90.1 cm/s. Normal waveforms. -Peak systolic velocity in the mid left renal artery = 125.0 cm/s. Normal waveforms. -Peak systolic velocity in the distal left renal artery = 121.0 cm/s. Normal waveforms. -Patent left renal vein. -Upper pole interlobar artery resistive index of 0.67. -Mid pole interlobar artery resistive index of 0.69. -lower pole interlobar artery resistive index of 0.68. RAR left = 1.3 Aorta: -Peak systolic velocity = 97.7 cm/s. Bilateral upper pole, interpolar and lower pole [segmental] arteriolar resistive indices are within normal limits. Bilateral upper pole, interpolar and lower pole [segmental] arteriolar pulse doppler waveforms are unremarkable, with uniformly rapid upstrokes and no parvus et tardus configuration. US/US renal doppler IMPRESSION: 1. No evidence of renal artery stenosis or abnormal waveforms bilaterally on color/spectral Doppler examination (based on peak systolic velocities and resistive indices). 2. Bilateral renal parenchyma is normal. 3. Incidental note of numerous large gallstones within the gallbladder. Electronically signed by: Scottie Magaña MD 09/16/2024 03:23 PM RISA
--- NOTE | ~2024-09-14 | XR_ITS ---
CLINICAL HISTORY: dyspnea Chest radiograph, 1 view Comparison: None Findings: The cardiomediastinal silhouette is not enlarged. Pulmonary vascularity is prominent. Bibasilar predominant reticulonodular interstitial opacities and mild thickening of the minor fissure. Probable trace bibasilar airspace opacities without focal consolidation. Minimal blunting of the left costophrenic angle. No pneumothorax. IMPRESSION: Pulmonary vascular congestion with bibasilar interstitial edema and probable minimal bibasilar airspace disease and trace left pleural effusion. Differential includes CHF and infection. This document has been electronically signed by: Marciano Duong DO on 09/14/2024 10:13:15
--- NOTE | 2024-09-14 09:16 | ECG_ITS ---
Test Reason : SOB Blood Pressure : */* mmHG Vent. Rate : 85 BPM Atrial Rate : 85 BPM P-R Int : 168 ms QRS Dur : 132 ms QT Int : 402 ms P-R-T Axes : 49 25 27 degrees QTcB Int : 478 ms Normal sinus rhythm Right bundle branch block Abnormal ECG No previous ECGs available Referred By: Generic ED Physician Electronically Signed By: LIBRADO BROOKS
[2024-09-14 09:40] LABS: MANUAL DIFF FLAG NO
[2024-09-14 09:41] LABS: Basophils Absolute Auto 0.1 X10*3/uL (0.0-0.2); Basophils Percent Auto 0.6 % (0-2); Eosinophils Absolute Auto 0.2 X10*3/uL (0.0-0.4); Eosinophils Percent Auto 1.9 % (0-4); Hematocrit 42.9 % (42.0-52.0); Hemoglobin 14.9 g/dl (14.0-18.0); Imm Gran Abs Auto 0.06 X10*3/uL (0.00-0.03); Imm Gran Pct Auto 0.6 % (0.0-0.4); Lymphocytes Absolute Auto 1.9 X10*3/uL (1.2-4.9); Lymphocytes Percent Auto 18.2 % (20-40); Mean Corpuscular HGB Conc 34.7 g/dl (31.0-36.0); Mean Corpuscular Hemoglobin 31.5 pg (27.0-33.0); Mean Corpuscular Volume 90.7 fL (80.0-98.0); Mean Platelet Volume 10.3 fL (9.4-12.4); Monocytes Absolute Auto 0.8 X10*3/uL (0.1-1.2); Monocytes Percent Auto 7.4 % (2-11); Neutrophils Absolute Auto 7.5 x10*3/uL (2.0-8.3); Neutrophils Percent Auto 71.3 % (45-73); Platelet Count 224 X10*3/uL (160-400); Red Blood Count 4.73 X10*6/uL (4.60-5.80); Red Cell Distribution Width 13.2 % (11.0-16.0); White Blood Count 10.5 X10*3/uL (4.8-10.8)
[2024-09-14 09:54] LABS: Anion Gap 13 (12-20); Blood Urea Nitrogen 16 mg/dL (9-16); Calcium 9.5 mg/dL (8.4-10.2); Carbon Dioxide 21 mmol/L (22-29); Chloride 112 mmol/L (96-108); Creatinine Clr Calc Pharmacy 63.7; Estimated Glomerular Filt Rate > 60; Glucose Random 143 mg/dL (60-115); Potassium 3.9 mmol/L (3.3-5.1); Sodium 142 mmol/L (135-145)
[2024-09-14 10:02] LABS: Troponin-I High Sensitivity 21.2 ng/L (<3.5-35.0)
[2024-09-14 10:33] LABS: Influenza A PCR NEGATIVE (Negative); Influenza B PCR NEGATIVE (Negative); Resp Syncy Virus RNA Qual PCR NEGATIVE (Negative); SARS COV2 PCR INHOUSE NEGATIVE (Negative)
--- NOTE | 2024-09-14 11:53 | ED_ITS ---
HPI - SOB/Dyspnea General Chief Complaint: Dyspnea Stated Complaint: diff breathing at night time/laying down Time Seen by Provider: 09/14/24 11:37 Source: patient and family (Daughter) Mode of arrival: ambulatory Limitations: no limitations History of Present Illness ED Provider: DR. Preciado HPI Narrative: 79-year-old male history of hypertension patient apparently is noncompliant with his medication for 1 year patient used to take lisinopril 40 mg daily, hydrochlorothiazide 25 mg daily, amlodipine 10 mg daily patient did not take those medication for 1 year, for the last 2 nights patient is been having shortness of breath at nighttime especially when he lays supine, patient get up shade hanger for air and feel like somebody is trying to suffocate him while he is sleeping, patient declined lower extremity swelling or gaining weight. Related Data Home Medications ?Medication ?Instructions ?Recorded ?Confirmed No Known Home Meds 09/14/24 09/14/24 Allergies Allergy/AdvReac Type Severity Reaction Status Date / Time No Known Allergies Allergy Verified 09/14/24 09:12 Review of Systems 2 Review of Systems: All other systems are reviewed and are negative Constitutional: Reports as per HPI and Reports no additional constitutional complaints Eyes: Reports as per HPI and Reports no additional eye complaints Reports system reviewed and no additional complaints, except as documented Cardiovascular: Reports as per HPI and Reports no additional cardiovascular complaints Respiratory: Reports as per HPI and Reports no additional respiratory complaints Gastrointestinal: Reports as per HPI and Reports no additional gastrointestinal complaints Genitourinary: Reports no additional female genitourinary complaints Musculoskeletal: Reports no additional musculoskeletal complaints Skin/Breast: Reports system reviewed and no additional complaints, except as docu Psychiatric: Reports no additional psychiatric complaints Endocrine: Reports no additional endocrine complaints Hematologic/Lymphatic: Reports no additional hematologic/lymphatic complaints Allergic/Immunologic: Reports no additional allergic/immunologic complaints Reports system reviewed and no additional complaints, except as documented and Reports Abnormal speech present [facility] Past Medical History Medical History (Updated 09/14/24 @ 14:41 by Malini Sargent NP) Elevated PSA Cataract HTN (hypertension) Surgical History History of dental surgery History of vasectomy Social History Social History Housing: House Alcohol intake: never Patient Tobacco Use Status: Current everyday Tobacco user Tobacco use type: Cigarette Cigarettes Per Day: 5 Years Smoked: 40 plus Smoked in Last 30 Days: No e-Cigarette/Vaping Use: Never Used Second Hand Smoke Exposure: Yes Use of substances other than those prescribed or required for medical reasons: No Advance Directives: No Advance Directives Information Provided: No Do you have a plan to hurt others: No Plan service: No Current occupational status: retired Current occupation: [employer] Cognitive needs: No Hearing needs: No Vision needs: Yes (glasses) Physical Exam 2 Vital Signs: Vital Signs: Last Vital Signs Temp 97.8 F 09/14/24 13:00 Pulse 79 09/14/24 17:47 Resp 19 09/14/24 17:47 BP 199/89 H 09/14/24 18:49 Pulse Ox 98 09/14/24 17:47 O2 Del Method Room Air 09/14/24 17:47 BMI result Body Mass Index 25.7 Vital signs have been reviewed and appear to be correct. Blood pressure elevated. Heart rate normal. Respiratory rate normal. Temperature normal. Oxygen saturation normal. Appearance: Alert. Oriented X3. No acute distress. Head: Normal external exam. Normocephalic. Atraumatic. No Carson signs noted. No raccoon eyes noted Eyes: PERRLA. EOMI. Conjunctiva and sclera normal. Eyelids normal. ENT: TM's Normal. Pharynx normal. Uvula midline. Moist mucous membranes. No trismus noted. No drooling noted. No muffled voice noted. Neck: Normal inspection. Neck supple. FROM. No adenopathy. Thyroid Normal. No meningeal signs. No neck mass noted. CVS: Normal heart rate and rhythm. Heart sound normal. No murmurs noted. Pulses normal throughout. Respiratory: No respiratory distress. Painless inspiration. Breath sounds normal. Bilateral basilar rales, Chest nontender. No accessory muscle usage noted or decreased air movement noted. Abdomen: Soft and nontender. Bowel sounds normal in all 4 quadrants. No distention noted. No organomegaly noted. No visible injury noted. Back: No CVA tenderness. Full range of motion noted. Skin: Skin warm and dry. Normal skin color. Normal skin turgor. No rashes/lesions/lacerations noted. Extremities: No lower extremity edema. Extremities exhibit normal range of motion. Extremities nontender. Neuro: Oriented X 3. Cranial nerve exam: II-XII are grossly intact No motor deficit. No sensory deficit. Reflexes normal. Course Reevaluation(s) Reevaluation #1: 79-year-old male with long history of hypertension patient is not compliant with his medication for the past year presented with hypertension, and sign of congestive heart failure, patient responded well to Lasix, lisinopril, nitroglycerin and HCTZ. Agreed to be admitted to the hospital for further evaluation. Time: 12:47 Reevaluation #2: Hypertension responded to oral lisinopril, HCTZ, nitroglycerin, and Lasix. Blood pressure now is creeping up again will consider IV hydralazine. Time: 13:41 Medications Administered Generic Name Dose Route Start Last Admin Trade Name Freq PRN Reason Stop Dose Admin Furosemide 40 mg 09/14/24 18:00 09/14/24 17:51 Furosemide 40 Mg/4 Ml Vial IVPUSH 40 mg BID@0900,1800 EDNA Administration Protocol Heparin Sodium (Porcine) 5,000 unit 09/14/24 15:00 09/14/24 15:03 Heparin Sodium,Porcine 5,000 Unit/Ml Vial SUBCUT Not Given Q12H EDNA Hydralazine HCl 5 mg 09/14/24 14:27 09/14/24 17:51 Hydralazine Hcl 20 Mg/Ml Vial IVPUSH 5 mg Q4H PRN Administration SBP>190 Protocol Sodium Chloride 3 ml 09/14/24 16:00 09/14/24 16:28 0.9 % Sodium Chloride Flush 3 Ml Syringe IVFLUSH 3 ml QSHIFT EDNA Administration Discontinued Medications Generic Name Dose Route Start Last Admin Trade Name Freq PRN Reason Stop Dose Admin Aspirin 325 mg 09/14/24 11:50 09/14/24 12:07 Aspirin 325 Mg Tablet PO 09/14/24 11:51 325 mg ONCE ONE Administration Furosemide 40 mg 09/14/24 11:50 09/14/24 12:08 Furosemide 40 Mg/4 Ml Vial IVPUSH 09/14/24 11:51 40 mg STAT STA Administration Protocol Hydralazine HCl 5 mg 09/14/24 13:40 09/14/24 14:17 Hydralazine Hcl 20 Mg/Ml Vial IVPUSH 09/14/24 13:41 5 mg ONCE ONE Administration Protocol Hydrochlorothiazide 25 mg 09/14/24 11:50 09/14/24 12:07 Hydrochlorothiazide 25 Mg Tablet PO 09/14/24 11:51 25 mg ONCE ONE Administration Protocol Lisinopril 40 mg 09/14/24 11:50 09/14/24 12:07 Lisinopril 40 Mg Tablet PO 09/14/24 11:51 40 mg ONCE ONE Administration Protocol Nitroglycerin 1 inch 09/14/24 11:56 09/14/24 12:41 Nitroglycerin 2 % Oint 1 Gm Packet TRANSDERMA 09/14/24 11:57 1 inch ONCE ONE Administration Medical Decision Making Differential Diagnosis Differential Diagnoses: The differential diagnosis associated with the presentation includes (Congestive heart failure, hypertensive urgency, hypertensive emergency, electrolyte derangement, severe anemia, ACS.) Admission/Observation Consideration of admission/observation: Escalation of care including admission/observation considered Consult Healthcare Provider Management of the patient was discussed with: Hospitalist (Dr. Griffin) Lab Data MDM Lab Attestation statement: I reviewed the patient's lab results. 09/14/24 09:29 09/14/24 09:29 Labs: Lab Results 09/14/24 09/14/24 Range/Units 09:29 12:13 WBC 10.5 (4.8-10.8) X10*3/uL RBC 4.73 (4.60-5.80) X10*6/uL Hgb 14.9 (14.0-18.0) g/dl Hct 42.9 (42.0-52.0) % MCV 90.7 (80.0-98.0) fL MCH 31.5 (27.0-33.0) pg MCHC 34.7 (31.0-36.0) g/dl RDW 13.2 (11.0-16.0) % Plt Count 224 (160-400) X10*3/uL MPV 10.3 (9.4-12.4) fL Immature Gran % (Auto) 0.6 H (0.0-0.4) % Neut % (Auto) 71.3 (45-73) % Lymph % (Auto) 18.2 L (20-40) % [place] % (Auto) 7.4 (2-11) % Eos % (Auto) 1.9 (0-4) % Baso % (Auto) 0.6 (0-2) % Lymph # (Auto) 1.9 (1.2-4.9) X10*3/uL [place] # (Auto) 0.8 (0.1-1.2) X10*3/uL Eos # (Auto) 0.2 (0.0-0.4) X10*3/uL Baso # (Auto) 0.1 (0.0-0.2) X10*3/uL Abs Immat Gran (auto) 0.06 H (0.00-0.03) X10*3/uL Absolute Neuts (auto) 7.5 (2.0-8.3) x10*3/uL Absolute Nucleated RBC 0.000 (0.0-0.012) X10*3/uL Nucleated RBC % (auto) 0.0 (0.0-0.2) /100WBC Sodium 142 (135-145) mmol/L Potassium 3.9 (3.3-5.1) mmol/L Chloride 112 H (96-108) mmol/L Carbon Dioxide 21 L (22-29) mmol/L Anion Gap 13 (12-20) BUN 16 (9-16) mg/dL Creatinine 0.97 (0.5-1.4) mg/dL Estim Creat Clear Calc 63.7 Estimated GFR > 60 Random Glucose 143 H (60-115) mg/dL Calcium 9.5 (8.4-10.2) mg/dL Troponin I High Sens 21.2 19.8 (<3.5-35.0) ng/L B-Natriuretic Peptide 675 H (<100) pg/mL Influenza Type A (PCR) NEGATIVE (Negative) Influenza Type B (PCR) NEGATIVE (Negative) RSV RNA Qual (PCR) NEGATIVE (Negative) SARS-CoV-2 RNA (RT-PCR) NEGATIVE (Negative) Independent Interpretation I performed an independent interpretation of an: EKG (Normal sinus rhythm at 85 beats per minute, RBBB, no previous EKG to compare.) and Plain X-Ray (Chest:Pulmonary vascular congestion with bibasilar interstitial edema and probable minimal bibasilar airspace disease and trace left pleural effusion. Differential includes CHF and infection.) Radiology Impression Discussion of test interpretation with radiology: I have reviewed the radiologist's reading. Critical Care Time Critical Care Time Critical Care Time: Yes Total Critical Care Time: 60 Attestation: The patient was critically ill with a high probability of imminent or life- threatening deterioration. I spent greater than 30 minutes of discontinuous time evaluating the patient, delivering critical care at the bedside, discussing evaluating data with consultants. Critical care time does not include time spent performing separately billable procedures or teaching. Time spent performing critical care was 60 minutes. Discharge Plan Discharge Clinical Impression: Hypertensive urgency, Congestive heart failure Patient Disposition: Admitted As Inpatient
[2024-09-14] MEDS: Aspirin 325 MG TABLET PO (12:07)
[2024-09-14] MEDS: hydroCHLOROthiazide 25 MG TABLET PO (12:07)
[2024-09-14] MEDS: lisinopriL 40 MG TABLET PO (12:07)
[2024-09-14] MEDS: Furosemide 40 MG/4 ML VIAL IVPUSH ×2 (12:08→17:51)
[2024-09-14] MEDS: Nitroglycerin 2 % Oint 1 GM Packet 1 INCH TRANSDERMA (12:41)
[2024-09-14 12:43] LABS: Troponin-I High Sensitivity 19.8 ng/L (<3.5-35.0)
[2024-09-14 12:44] LABS: B Type Natriuretic Peptide 675 pg/mL (<100)
--- NOTE | 2024-09-14 13:00 | MHC.EDTECH ---
urine output: 450mL
--- NOTE | 2024-09-14 13:42 | PHA.MEDREC ---
Pharmacy Consult ? Medication Reconciliation Pharmacy has completed the medication reconciliation. Pt reports taking no medications currently. Per pt, stopped a year ago because they didn't work .
[2024-09-14] MEDS: hydrALAZINE HCl 20 MG/ML VIAL 5 MG IVPUSH ×2 (14:17→17:51)
--- NOTE | 2024-09-14 14:31 | PM.IMHP ---
History of Present Illness Date of Service: 09/14/24 Chief Complaint: Shortness of breaths 79-year-old man presenting with complaints of shortness of breath and PND over the last few months. He reports that he had not followed with a medical provider for decades prior to 2022. Around that time he developed this feeling of inability to catch his breath and waking up in the middle of night gasping for air. He reports it would come and then go away on its own so he never sought medical assistance. He needed to have cataract surgery and therefore needed a primary care provider so he did seek that out. In 2022 he was found to be hypertensive and was started on medications. He states that since his blood pressure still elevated even on the medications why should she take the medications if they are not helping. Therefore it appears that he has not been taking any blood pressure medications and he was unable to say which specifically he was on. In the ER, blood pressure was as high as 227/129. He received hydralazine, amlodipine, nitroglycerin, lisinopril, Lasix, hydrochlorothiazide with some relief and blood pressure. He denied chest pain, nausea, vomiting, diarrhea, sick contacts, recent travel. Chest x-ray showed pulmonary vascular congestion with bibasilar interstitial edema and probable minimal bibasilar airspace disease with trace left pleural effusion. Plan is to admit patient and treat for acute congestive heart failure. Review of Systems Review of Systems: Denies any recent fever chills or decrease in appetite respiratory see HPI cardiovascular denied chest pain, reported PND gastrointestinal denies any dysphagia abdominal pain nausea vomiting or diarrhea genitourinary denies any dysuria frequency or hematuria musculoskeletal denies any joint pain or swelling neuropsych denies any weakness or seizures all other systems reviewed are negative [facility] Medical History (Updated 09/15/24 @ 10:48 by Lamine Tong MD) Elevated PSA Cataract HTN (hypertension) Surgical History History of dental surgery History of vasectomy Social History Household Members: None Housing: House Do you presently have visiting nurse or other home services: No Alcohol intake: never Patient Tobacco Use Status: Current everyday Tobacco user Tobacco use type: Cigarette Cigarettes Per Day: 10 Years Smoked: 40 plus e-Cigarette/Vaping Use: Never Used Second Hand Smoke Exposure: Yes service: No Current occupational status: retired Current occupation: [employer] Cognitive needs: No Hearing needs: No Vision needs: Yes (glasses) Meds Allergies Allergy/AdvReac Type Severity Reaction Status Date / Time No Known Allergies Allergy Verified 09/14/24 09:12 Active Medications: Current Medications Acetaminophen (Acetaminophen 325 Mg Tablet) 650 mg PO Q6H PRN PRN Reason: Pain, Mild 1-3,fever,headache Amlodipine Besylate (Amlodipine Besylate 5 Mg Tablet) 5 mg PO DAILY EDNA; Protocol Calcium Carbonate (Calcium Carbonate 750 Mg Tab.Chew) 750 mg PO Q4H PRN PRN Reason: Heartburn Furosemide (Furosemide 40 Mg/4 Ml Vial) 40 mg IVPUSH BID@0900,1800 [facility]; Protocol Heparin Sodium (Porcine) (Heparin Sodium,Porcine 5,000 Unit/Ml Vial) 5,000 unit SUBCUT Q12H EDNA Hydralazine HCl (Hydralazine Hcl 20 Mg/Ml Vial) 5 mg IVPUSH Q4H PRN; Protocol PRN Reason: SBP>190 Lisinopril (Lisinopril 40 Mg Tablet) 40 mg PO DAILY EDNA; Protocol Magnesium Hydroxide (Milk Of Magnesia 30 Ml Oral.Susp) 30 ml PO DAILY PRN PRN Reason: Constipation Melatonin (Melatonin 3 Mg Tablet) 6 mg PO BEDTIME PRN PRN Reason: Insomnia Ondansetron HCl (Ondansetron Hcl 4 Mg/2 Ml Vial) 4 mg IVPUSH Q8H PRN PRN Reason: Nausea and Vomiting Sodium Chloride (0.9 % Sodium Chloride Flush 3 Ml Syringe) [facility] Medications ?Medication ?Instructions ?Recorded ?Confirmed ?Last Taken ?Type No Known Home Meds 09/14/24 09/14/24 Unknown History Physical Exam Vital Signs and Narrative: Vital Signs: Last Vital Signs Temp 97.8 F 09/14/24 13:00 Pulse 62 09/14/24 14:00 Resp 18 09/14/24 14:00 BP 178/75 H 09/14/24 14:00 Pulse Ox 97 09/14/24 14:00 O2 Del Method Room Air 09/14/24 14:00 BMI result Body Mass Index 25.7 Appearing in no acute distress head is normocephalic atraumatic eyes pupils are PERRLA sclera is anicteric mouth throat mucous membranes are intact and moist neck is supple no lymphadenopathy, no JVD noted lung sounds mild rales heart regular rate rhythm, clear S1, S2 positive bowel sounds, abdomen is soft, nontender neuro patient is alert x3, no focal deficits Results Labs 09/15/24 05:27 09/15/24 05:27 Labs: Laboratory Results - last 24 hr 09/14/24 09/14/24 09:29 12:13 MCV 90.7 MCH 31.5 MCHC 34.7 RDW 13.2 Plt Count 224 MPV 10.3 Immature Gran % (Auto) 0.6 H Neut % (Auto) 71.3 Lymph % (Auto) 18.2 L [place] % (Auto) 7.4 Eos % (Auto) 1.9 Baso % (Auto) 0.6 Lymph # (Auto) 1.9 [place] # (Auto) 0.8 Eos # (Auto) 0.2 Baso # (Auto) 0.1 Abs Immat Gran (auto) 0.06 H Absolute Neuts (auto) 7.5 Absolute Nucleated RBC 0.000 Nucleated RBC % (auto) 0.0 Anion Gap 13 Estim Creat Clear Calc 63.7 Estimated GFR > 60 Random Glucose 143 H Calcium 9.5 B-Natriuretic Peptide 675 H Influenza Type A (PCR) NEGATIVE Influenza Type B (PCR) NEGATIVE RSV RNA Qual (PCR) NEGATIVE SARS-CoV-2 RNA (RT-PCR) NEGATIVE Assessment and Plan (1) HTN (hypertension): Qualifiers: Hypertension type: primary hypertension Qualified Code(s): I10 - Essential (primary) hypertension Status: Inactive (2) Congestive heart failure: Status: Acute (3) Cataract: Qualifiers: Age-related cataract type: unspecified Cataract type: age-related Laterality: bilateral Qualified Code(s): H25.9 - Unspecified age-related cataract Status: Inactive Plan 79-year-old man admitted with acute congestive heart failure Acute congestive heart failure. Unspecified patient complaints of PND BNP 675 Chest x-ray showing pulmonary vascular congestion bibasilar interstitial edema IV Lasix 40 mg b.i.d. Cardiology consultation Echocardiogram Strict intake and output and daily weights Hypertensive urgency Patient noncompliant with blood pressure medications Treated with multiple medications in the ED Lisinopril 40 mg daily and amlodipine 5 mg daily added Nephrology consultation for hypertension Elevated blood sugar No history of diabetes Check A1c Tobacco dependence Nicotine replacement therapy offered DVT prophylaxis with heparin Full code Quality Stroke Does the patient have a stroke diagnosis?: No VTE Prior VTE?: No VTE Risk Level:: Medical - moderate - high VTE Device Contraindication: Treatment Not Indicated VTE Drug Contraindication: N/A - Med Ordered
[2024-09-14 15:11] LABS: Alanine Aminotransferase 12 U/L (0-40); Alkaline Phosphatase 85 U/L (39-117); Aspartate Amino Transferase 25 U/L (5-37); Bilirubin Direct 0.1 mg/dL (0.0-0.5); Bilirubin Total 0.5 mg/dL (0.0-1.0)
[2024-09-14] MEDS: 0.9 % Sodium Chloride Flush 3 ML SYRINGE IVFLUSH (16:28)
--- NOTE | 2024-09-14 17:47 | MHC.EDTECH ---
pt agitated, screaming that he dos not want his BP to be chcked anymore
--- NOTE | 2024-09-14 18:20 | PC.NURSE ---
Patient has episodes of agitation regarding care but is redirectable. BP remains elevated , medicated with prn hydralazine. Patient denies sob or chest pain, stated BP is always high
--- NOTE | 2024-09-14 19:02 | PC.NURSE ---
Provider notified of elevated BP- no new orders
[2024-09-15] VITALS (9 sets, daily range): BP systolic 158–185; BP diastolic 70–86; PULSE 62–86; RESP 17–20; TEMP 36.6–36.8; O2SAT 96–98
[2024-09-15] MEDS: Heparin Sodium,Porcine 5,000 UNIT/ML VIAL 5000 UNIT SUBCUT ×2 (03:14→14:32)
[2024-09-15 05:33] LABS: MANUAL DIFF FLAG NO
[2024-09-15 05:40] LABS: Basophils Percent Auto 0.5 % (0-2); Eosinophils Absolute Auto 0.1 X10*3/uL (0.0-0.4); Eosinophils Percent Auto 1.6 % (0-4); Hematocrit 44.1 % (42.0-52.0); Hemoglobin 15.3 g/dl (14.0-18.0); Imm Gran Abs Auto 0.03 X10*3/uL (0.00-0.03); Imm Gran Pct Auto 0.3 % (0.0-0.4); Lymphocytes Absolute Auto 1.7 X10*3/uL (1.2-4.9); Lymphocytes Percent Auto 19.3 % (20-40); Mean Corpuscular HGB Conc 34.7 g/dl (31.0-36.0); Mean Corpuscular Hemoglobin 30.5 pg (27.0-33.0); Mean Platelet Volume 10.3 fL (9.4-12.4); Monocytes Absolute Auto 0.8 X10*3/uL (0.1-1.2); Monocytes Percent Auto 8.7 % (2-11); Neutrophils Absolute Auto 6.2 x10*3/uL (2.0-8.3); Neutrophils Percent Auto 69.6 % (45-73); Platelet Count 247 X10*3/uL (160-400); Red Blood Count 5.01 X10*6/uL (4.60-5.80); Red Cell Distribution Width 13.3 % (11.0-16.0); White Blood Count 8.8 X10*3/uL (4.8-10.8)
[2024-09-15 05:55] LABS: B Type Natriuretic Peptide 358 pg/mL (<100)
[2024-09-15 05:56] LABS: Anion Gap 16 (12-20); Blood Urea Nitrogen 24 mg/dL (9-16); Calcium 9.8 mg/dL (8.4-10.2); Carbon Dioxide 21 mmol/L (22-29); Chloride 105 mmol/L (96-108); Creatinine Clr Calc Pharmacy 55.7; Estimated Glomerular Filt Rate > 60; Glucose Random 137 mg/dL (60-115); Potassium 3.3 mmol/L (3.3-5.1); Sodium 139 mmol/L (135-145)
[2024-09-15 06:14] LABS: Thyroid Stimulating Hormone 2.15 uIU/mL (0.32-4.0)
[2024-09-15 07:18] LABS: Estimated Average Glucose 148 mg/dL; Hemoglobin A1C 205.3065 umol/L; Hemoglobin A1c % 6.8 % (<6.0); Total Hemoglobin (HGBA1C) 4023.6283 umol/L
--- NOTE | 2024-09-15 09:40 | PM.EVENT ---
Event Note Date of Service: 09/15/24 Event Note: Chart reveiwed Obtain Doppler of renal arteries Keep O > I Full consult to follow Time Spent With Patient Time: Total time managing care of this patient today ____ minutes.
[2024-09-15] MEDS: lisinopriL 40 MG TABLET PO (10:30)
[2024-09-15] MEDS: Furosemide 40 MG/4 ML VIAL IVPUSH (10:30)
[2024-09-15] MEDS: amLODIPine Besylate 10 MG TABLET PO (10:32)
[2024-09-15] MEDS: 0.9 % Sodium Chloride Flush 3 ML SYRINGE IVFLUSH ×3 (10:35→22:17)
--- NOTE | 2024-09-15 10:45 | P.CONCA_ITS ---
History of Present Illness History of Present Illness Date of Service: 09/15/24 Chief complaint: CHF Narrative: This is a cardiology consultation regarding congestive heart failure/hypertension. Last seen by PCP in 2022. It does not appear the patient actually follows up with physicians regularly. He does not take any medications. Has a history of poorly controlled hypertension but not on any medications. Currently admitted for feeling of inability to catch his breath and waking up in the middle of the night. Sounds like orthopnea/PND. He states that he was on blood pressure medications but there was still high in spite of meds and hence he decided to stop them. In the emergency room, blood pressure was in the 200s. That led to hospitalization. He has received many medications including hydralazine, amlodipine, nitroglycerin, lisinopril, Lasix, hydrochlorothiazide with some relief. Currently, denies any active anginal-type symptoms. No previous history of any coronary disease or myocardial infarction or cardiomyopathy. Review of Systems 2 Review of Systems: Yes all other systems are reviewed and are negative Constitutional: Constitutional: Reports as per HPI and Reports no additional constitutional complaints Eyes: Eyes: Reports as per HPI and Denies no additional eye complaints ENT: Denies system reviewed and no additional complaints, except as documented and Reports as per HPI Cardiovascular: Cardiovascular: Reports as per HPI, Reports no additional cardiovascular complaints, Denies acrocyanosis, Denies cool extremities, Denies chest pain, Denies leg edema, Denies lightheadedness, Denies palpitations and Reports dyspnea Respiratory: Respiratory: Reports as per HPI, Denies no additional respiratory complaints and Reports dyspnea Gastrointestinal: Gastrointestinal: Reports as per HPI and Denies no additional gastrointestinal complaints Genitourinary: Genitourinary: Reports no additional male genitourinary complaints and Reports as per HPI Musculoskeletal: Musculoskeletal: Reports no additional musculoskeletal complaints and Reports as per HPI Integumentary/Breasts: Skin/Breast: Reports system reviewed and no additional complaints, except as docu Neurologic: Reports system reviewed and no additional complaints, except as documented and Reports as per HPI Psychiatric: Psychiatric: Reports no additional psychiatric complaints and Reports as per HPI Endocrine: Endocrine: Reports no additional endocrine complaints, Reports as per HPI and Denies palpitations Hematologic/Lymphatic: Hematologic/Lymphatic: Reports no additional hematologic/lymphatic complaints and Reports as per HPI Allergic/Immunologic: Allergic/Immunologic: Reports no additional allergic/immunologic complaints and Reports as per HPI PMFSH Past Medical History Medical History (Updated 09/15/24 @ 10:48 by Lamine Tong MD) Elevated PSA Cataract HTN (hypertension) Surgical History Surgical History History of dental surgery History of vasectomy Social History Social History Housing: House Alcohol intake: never Patient Tobacco Use Status: Current everyday Tobacco user Tobacco use type: Cigarette Cigarettes Per Day: 5 Years Smoked: 40 plus Smoked in Last 30 Days: No e-Cigarette/Vaping Use: Never Used Second Hand Smoke Exposure: Yes Use of substances other than those prescribed or required for medical reasons: No Advance Directives: No Advance Directives Information Provided: No Do you have a plan to hurt others: No Plan service: No Current occupational status: retired Current occupation: [employer] Cognitive needs: No Hearing needs: No Vision needs: Yes (glasses) Meds Allergies Allergy/AdvReac Type Severity Reaction Status Date / Time No Known Allergies Allergy Verified 09/14/24 09:12 Active Medications: Current Medications Acetaminophen (Acetaminophen 325 Mg Tablet) 650 mg PO Q6H PRN PRN Reason: Pain, Mild 1-3,fever,headache Amlodipine Besylate (Amlodipine Besylate 10 Mg Tablet) 10 mg PO DAILY [facility]; Protocol Last Admin: 09/15/24 10:32 Dose: 10 mg Calcium Carbonate (Calcium Carbonate 750 Mg Tab.Chew) 750 mg PO Q4H PRN PRN Reason: Heartburn Fluticasone Propionate (Fluticasone Propionate Nasal 16 Gm [place]) 1 spray NOSTRIL-B BID PRN PRN Reason: Nasal Congestion Furosemide (Furosemide 40 Mg/4 Ml Vial) 40 mg IVPUSH BID@0900,1800 [facility]; Protocol Last Admin: 09/15/24 10:30 Dose: 40 mg Heparin Sodium (Porcine) (Heparin Sodium,Porcine 5,000 Unit/Ml Vial) 5,000 unit SUBCUT Q12H EDNA Last Admin: 09/15/24 03:14 Dose: 5,000 unit Hydralazine HCl (Hydralazine Hcl 20 Mg/Ml Vial) 5 mg IVPUSH Q4H PRN; Protocol PRN Reason: SBP>190 Last Admin: 09/14/24 17:51 Dose: 5 mg Lisinopril (Lisinopril 40 Mg Tablet) 40 mg PO DAILY [facility]; Protocol Last Admin: 09/15/24 10:30 Dose: 40 mg Magnesium Hydroxide (Milk Of Magnesia 30 Ml Oral.Susp) 30 ml PO DAILY PRN PRN Reason: Constipation Melatonin (Melatonin 3 Mg Tablet) 6 mg PO BEDTIME PRN PRN Reason: Insomnia Nicotine Polacrilex (Nicotine Polacrilex 2 Mg Gum) 2 mg BUCCAL Q2H PRN PRN Reason: Nicotine Cravings Ondansetron HCl (Ondansetron Hcl 4 Mg/2 Ml Vial) 4 mg IVPUSH Q8H PRN PRN Reason: Nausea and Vomiting Sodium Chloride (0.9 % Sodium Chloride Flush 3 Ml Syringe) [facility] Last Admin: 09/15/24 10:35 Dose: 3 ml Home Medications ?Medication ?Instructions ?Recorded ?Confirmed ?Last Taken ?Type No Known Home Meds 09/14/24 09/14/24 Unknown History Physical Exam 2 Vital Signs: Vital Signs: Last Vital Signs Temp 98.2 F 09/15/24 10:20 Pulse 79 09/15/24 10:20 Resp 17 09/15/24 10:20 BP 179/86 H 09/15/24 10:32 Pulse Ox 96 09/15/24 10:20 O2 Del Method Room Air 09/15/24 10:20 BMI result Body Mass Index 25.7 Const: General: comfortable and no acute distress O rientation/consciousness: patient oriented x3 HEENT: Other: Unremarkable Head: Yes normal to inspection Neck: Neck: Yes normal visual inspection Chest: Chest palpation & inspection: normal inspection of the chest Resp: Auscultation: clear to auscultation bilaterally Cardio: Palpation: normal PMI Heart sounds: S1 normal heart sound present, S2 normal heart sound present, no gallops, no murmurs and no rubs GI: Palpation (GI): Soft to palpation Back/Spine/Pelvis: Other: unremarkable Skin: General skin exam: no rashes or lesions noted Neuro: General: patient oriented x3 Extrem: General: Yes normal to inspection Psych: Mental Status: mental status grossly normal Objective Labs and Meds 09/15/24 05:27 09/15/24 05:27 Lab results: Laboratory Results - last 24 hr 09/14/24 09/14/24 09/15/24 12:13 14:38 05:26 WBC RBC Hgb Hct MCV MCH MCHC RDW Plt Count MPV Immature Gran % (Auto) Neut % (Auto) Lymph % (Auto) Ramsey % (Auto) Eos % (Auto) Baso % (Auto) Lymph # (Auto) Ramsey # (Auto) Eos # (Auto) Baso # (Auto) Abs Immat Gran (auto) Absolute Neuts (auto) Absolute Nucleated RBC Nucleated RBC % (auto) Sodium Potassium Chloride Carbon Dioxide Anion Gap BUN Creatinine Estim Creat Clear Calc Estimated GFR Random Glucose Estimat Average Glucose 148 Hemoglobin A1c % 6.8 H Calcium Total Bilirubin 0.5 Direct Bilirubin 0.1 AST 25 ALT 12 Alkaline Phosphatase 85 Troponin I High Sens 19.8 B-Natriuretic Peptide 675 H Total Protein 8.0 Albumin 4.0 TSH 09/15/24 05:27 WBC 8.8 RBC 5.01 Hgb 15.3 Hct 44.1 MCV 88.0 MCH 30.5 MCHC 34.7 RDW 13.3 Plt Count 247 MPV 10.3 Immature Gran % (Auto) 0.3 Neut % (Auto) 69.6 Lymph % (Auto) 19.3 L Ramsey % (Auto) 8.7 Eos % (Auto) 1.6 Baso % (Auto) 0.5 Lymph # (Auto) 1.7 Ramsey # (Auto) 0.8 Eos # (Auto) 0.1 Baso # (Auto) 0.0 Abs Immat Gran (auto) 0.03 Absolute Neuts (auto) 6.2 Absolute Nucleated RBC 0.000 Nucleated RBC % (auto) 0.0 Sodium 139 Potassium 3.3 Chloride 105 Carbon Dioxide 21 L Anion Gap 16 BUN 24 H Creatinine 1.11 Estim Creat Clear Calc 55.7 Estimated GFR > 60 Random Glucose 137 H Estimat Average Glucose Hemoglobin A1c % Calcium 9.8 Total Bilirubin Direct Bilirubin AST ALT Alkaline Phosphatase Troponin I High Sens B-Natriuretic Peptide 358 H Total Protein Albumin TSH 2.15 ECG Interpretation: EKG with underlying sinus rhythm at 85/Min; right bundle-branch block pattern. Assessment and Plan (1) Hypertensive emergency: Status: Acute Markedly high blood pressures in the 200s. Likely all related to not taking medications. Recommend an initial regimen including amlodipine, ANDRES inhibitors or ARB with diuretic. If necessary, can add carvedilol. (2) Acute congestive heart failure: Status: Acute Suspect related to poor rate control hypertension. Could have cardiac dysfunction. Will need an echocardiogram. Plan Discussed with daughter at the bedside. Procedures Date of Service Date of Service: 09/15/24
--- NOTE | 2024-09-15 10:53 | MHC.CM.PN ---
CM MET WITH PT AND HCP/DAUGHTER AT BEDSIDE PT LIVES ALONE BUT HIS DAUGHTER LIVES DOWNSTAIRS IN THE TWO-FAMILY HOME PT HAS NO SERVICES OR DME PT WAS ACTIVE WITH [facility], HOWEVER DAUGHTER STATES HE HAS NOT BEEN THERE IN ABOUT A YEAR, SO SHE IS UNSURE IF HE IS STILL ACTIVE PT AND DAUGHTER AWARE HE WILL NOT BE ELIGIBLE FOR [facility] WITHOUT A PCP CM WILL CONTACT [facility] OFFICE TO DETERMINE IF PT IS ACTIVE, IF NOT, AND ATTEMPT WILL BE MADE TO SCHEDULE HIM. PT AGREEABLE TO SEEING ANY PROVIDER AVAILABLE IN THE PRACTICE PTS DAUGHTER IS THE HCP, COPY REQUESTED IMM DELIVERED PTS PREFERRED DCP: HOME DAUGHTER WILL TRANSPORT *PT UNSURE IF HE IS INTERESTED IN VNA EITHER WAY, BUT WILL NEED PCP FOLLOW UP
--- NOTE | 2024-09-15 13:25 | P.PNIM_ITS ---
Subjective Subjective Date of Service: 09/15/24 Interval History: uncontrolled htn chf Review of Systems sob seems improving,denies any chest pain htn -uncontrolled Physical Exam 2 Vital Signs: Vital Signs: Last Vital Signs Temp 98.2 F 09/15/24 10:20 Pulse 79 09/15/24 10:20 Resp 17 09/15/24 10:20 BP 180/80 H 09/15/24 12:00 Pulse Ox 96 09/15/24 10:20 O2 Del Method Room Air 09/15/24 10:20 BMI result Body Mass Index 25.7 Appearing in no acute distress chest: lung sounds mild rales heart regular rate rhythm, S1, S2 heard positive bowel sounds, abdomen is soft, nontender neuro patient is alert x3, no focal deficits Objective Data Active Medications Acetaminophen (Acetaminophen 325 Mg Tablet) 650 mg PO Q6H PRN PRN Reason: Pain, Mild 1-3,fever,headache Amlodipine Besylate (Amlodipine Besylate 10 Mg Tablet) 10 mg PO DAILY [facility]; Protocol Last Admin: 09/15/24 10:32 Dose: 10 mg Documented By: RAGHU Calcium Carbonate (Calcium Carbonate 750 Mg Tab.Chew) 750 mg PO Q4H PRN PRN Reason: Heartburn Carvedilol (Carvedilol 3.125 Mg Tablet) 3.125 mg PO BID [facility]; Protocol Fluticasone Propionate (Fluticasone Propionate Nasal 16 Gm [place]) 1 spray NOSTRIL-B BID PRN PRN Reason: Nasal Congestion Furosemide (Furosemide 40 Mg/4 Ml Vial) 40 mg IVPUSH DAILY [facility]; Protocol Heparin Sodium (Porcine) (Heparin Sodium,Porcine 5,000 Unit/Ml Vial) 5,000 unit SUBCUT Q12H [facility] Last Admin: 09/15/24 03:14 Dose: 5,000 unit Documented By: DAVID Hydralazine HCl (Hydralazine Hcl 20 Mg/Ml Vial) 5 mg IVPUSH Q4H PRN; Protocol PRN Reason: SBP>190 Last Admin: 09/14/24 17:51 Dose: 5 mg Documented By: LYNN Lisinopril (Lisinopril 40 Mg Tablet) 40 mg PO DAILY [facility]; Protocol Last Admin: 09/15/24 10:30 Dose: 40 mg Documented By: RAGHU Magnesium Hydroxide (Milk Of Magnesia 30 Ml Oral.Susp) 30 ml PO DAILY PRN PRN Reason: Constipation Melatonin (Melatonin 3 Mg Tablet) 6 mg PO BEDTIME PRN PRN Reason: Insomnia Nicotine Polacrilex (Nicotine Polacrilex 2 Mg Gum) 2 mg BUCCAL Q2H PRN PRN Reason: Nicotine Cravings Ondansetron HCl (Ondansetron Hcl 4 Mg/2 Ml Vial) 4 mg IVPUSH Q8H PRN PRN Reason: Nausea and Vomiting Sodium Chloride (0.9 % Sodium Chloride Flush 3 Ml Syringe) 3 ml IVFLUSH QSHIFT [facility] Last Admin: 09/15/24 10:35 Dose: 3 ml Documented By: RAGHU Labs 09/15/24 05:27 09/15/24 05:27 Labs: Laboratory Results - last 24 hr 09/14/24 09/15/24 09/15/24 14:38 05:26 05:27 MCV 88.0 MCH 30.5 MCHC 34.7 RDW 13.3 Plt Count 247 MPV 10.3 Immature Gran % (Auto) 0.3 Neut % (Auto) 69.6 Lymph % (Auto) 19.3 L [place] % (Auto) 8.7 Eos % (Auto) 1.6 Baso % (Auto) 0.5 Lymph # (Auto) 1.7 [place] # (Auto) 0.8 Eos # (Auto) 0.1 Baso # (Auto) 0.0 Abs Immat Gran (auto) 0.03 Absolute Neuts (auto) 6.2 Absolute Nucleated RBC 0.000 Nucleated RBC % (auto) 0.0 Anion Gap 16 Estim Creat Clear Calc 55.7 Estimated GFR > 60 Random Glucose 137 H Estimat Average Glucose 148 Hemoglobin A1c % 6.8 H Calcium 9.8 Total Bilirubin 0.5 Direct Bilirubin 0.1 AST 25 ALT 12 Alkaline Phosphatase 85 B-Natriuretic Peptide 358 H Total Protein 8.0 Albumin 4.0 TSH 2.15 Assessment and Plan (1) Hypertensive emergency: Status: Acute (2) Acute congestive heart failure: Status: Acute Assessment and Plan: 79-year-old man admitted with acute congestive heart failure Acute congestive heart failure-Unspecified etiology unclear sob somewhat improving BNP [phone] Chest x-ray showing pulmonary vascular congestion bibasilar interstitial edema plan: i/o neg 2 liters , bnp improving echo Strict intake and output and daily weights cardiology eval noted-Suspect related to poor rate control hypertension. Could have cardiac dysfunction. Will need an echocardiogram. added coreg in addition to amlodipine,lisinopril . adjusted iv lasix 40 mg qd Hypertensive urgency continue lisinopril,adjusted amlodipine to 10mg qd, bp still uncontrolled-added coreg 3.125mg bid. new onset dm 2: Check A1c 6.8 fs with sliding scale coverage Tobacco dependence Nicotine replacement therapy offered DVT prophylaxis with heparin. Full code. ongoing need for stay -htn uncontrolled ,chf excerebation, new onset dm - need close monitering i/o,iv lasix and tele as well as bp monitering. Quality Stroke Does the patient have a stroke diagnosis?: No VTE Prior VTE?: No VTE Risk Level:: Medical - moderate - high VTE Device Contraindication: Treatment Not Indicated VTE Drug Contraindication: N/A - Med Ordered
[2024-09-15] MEDS: carvediloL 3.125 MG TABLET PO ×2 (14:30→22:15)
[2024-09-15 15:31] LABS: Glucose, Whole Blood 148 mg/dL (60-115)
[2024-09-15 21:19] LABS: Glucose, Whole Blood 157 mg/dL (60-115)
[2024-09-15] MEDS: Insulin Lispro 100 UNIT/ML 3 ML VIAL SUBCUT (22:14)
[2024-09-16] VITALS (7 sets, daily range): BP systolic 131–163; BP diastolic 54–79; PULSE 58–79; RESP 14–24; TEMP 36.1–36.9; O2SAT 96–100; BMI 25.5
--- NOTE | 2024-09-16 07:00 | CA_ITS ---
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 The calculated ejection fraction is 60% by biplane method. - There is severely increased left ventricular wall thickness. - No obvious valvular pathology seen on this study. Findings Left Ventricle Normal left ventricular cavity size. There is severely increased left ventricular wall thickness. The left ventricular systolic function is normal. The calculated ejection fraction is 60% by biplane method. There is no evidence of regional wall motion abnormalities. Evidence suggests grade I (mild) diastolic dysfunction. Right Ventricle Normal right ventricular cavity size and systolic function. Atria The left atrium is mildly dilated. The right atrium is normal in size. Aortic Valve There is a normal trileaflet aortic valve. There is no aortic valve stenosis. There is no aortic valve regurgitation. Mitral Valve The mitral valve appears normal. There is mild mitral annular calcification. There is no mitral valve stenosis. Pulmonic Valve The pulmonic valve is likely normal. Tricuspid Valve There is trace tricuspid valve regurgitation. There is no evidence of pulmonary hypertension. Great Vessels The asc aorta is normal in size. Venous The inferior vena cava is normal in size and collapses greater than 50% with inspiration. Pericardium/Pleural There is no evidence of pericardial effusion. Prior Study Comparison No prior study available for comparison. Recommendations, Care & Conclusions No obvious valvular pathology seen on this study. Measurements 2D Linear Measurements IVSd: 1.58 0.6-0.9/0.6-1.0 cm LVIDd: 4.87 3.9-5.3/4.2-5.9 cm LVIDd Index: 2.45 2.4-3.2/2.2-3.1 cm/m2 LVIDs: 3.33 2.0-3.6 cm LVPWd: 1.45 0.7-1.1 cm LA Diam: 4.20 2.7-3.8/3.0-4.0 cm LAIDs Index: 2.11 1.5-2.3 cm/m2 LV Mass: 392.64 67-162/88-224 g LV Mass Index: 197.31 43-95/49-115 g/m2 LVOT Diam: 2.40 3.0+(-)1.3 cm 2D Systolic Function EF 4C: 63.60 >55% EF 2C: 57.00 >55% EF BiP: 60.30 >55% Mitral Valve MV Pk E: 0.40 MV PK A: 0.93 MV Decel Time: 303.00 E/A: 0.40 E'Lateral: 5.33 E'Medial: 4.24 E/E' Med: 9.50 E/E' Lat: 7.60 PHT: 89.00 MVA PHT: 2.47 Decel [place]: 1.33 Aortic Valve AoV Pk Dylan: 1.51 AoV Mn Dylan: 1.00 AoV VTI: 0.25 AoV Pk Grad: 9.00 Aov Mn Grad: 5.00 MARY Cont.VTI: 2.53 LVOT LVOT Pk Dylan: 0.78 LVOT Mn Dylan: 0.56 LVOT VTI: 0.14 LVOT Pk Grad: 2.00 LVOT Mn Grad: 1.00 LVOT Diam: 2.40 LVOT Area: 4.52 Diastolic Function MV Pk E: 0.40 MV Pk A: 0.93 E/A: 0.40 E'Medial: 4.24 E/E' Med: 9.50 E' Laterial: 5.33 E/E' Lat: 7.60 Right Ventricle TAPSE (mm): 27.70 TVS' Dylan: 12.40 Tricuspid Valve TR Pk Dylan: 2.27 TR Pk Grad: 21.00 Great Vessels Aorta Sinus of Valsalva: 3.10 2.0-3.5 cm Ao Asc: 3.40 2.1-3.4 cm Pulmonary Valve PV Pk Dylan: 1.22 Peak PV Grad: 6.00 Updated in Other Vendor System with Status of Final Lamine Tong MD electronically signed on 09/16/2024 10:14:59 AM with status of Final
[2024-09-16 07:21] LABS: Glucose, Whole Blood 135 mg/dL (60-115)
[2024-09-16] MEDS: carvediloL 6.25 MG TABLET PO ×2 (08:57→20:09)
[2024-09-16] MEDS: lisinopriL 40 MG TABLET PO (08:57)
[2024-09-16] MEDS: amLODIPine Besylate 10 MG TABLET PO (08:57)
[2024-09-16] MEDS: 0.9 % Sodium Chloride Flush 3 ML SYRINGE IVFLUSH (08:58)
[2024-09-16] MEDS: Furosemide 40 MG/4 ML VIAL IVPUSH (08:58)
--- NOTE | 2024-09-16 09:07 | PM.PNCARD ---
Subjective Subjective Date of Service: 09/16/24 Interval history: He states that he feels much better. Shortness of breath is improved. He states he was able to sleep well last night. Review of Systems Review of Systems Yes all other systems are reviewed and are negative Constitutional: Reports as per HPI and Reports no additional constitutional complaints Eyes: Reports as per HPI and Denies no additional eye complaints Denies system reviewed and no additional complaints, except as documented and Reports as per HPI Cardiovascular: Reports as per HPI, Reports no additional cardiovascular complaints, Denies acrocyanosis, Denies cool extremities, Denies chest pain, Denies leg edema, Denies lightheadedness, Denies palpitations and Reports dyspnea Respiratory: Reports as per HPI, Denies no additional respiratory complaints and Reports dyspnea Gastrointestinal: Reports as per HPI and Denies no additional gastrointestinal complaints Genitourinary: Reports no additional male genitourinary complaints and Reports as per HPI Musculoskeletal: Reports no additional musculoskeletal complaints and Reports as per HPI Skin/Breast: Reports system reviewed and no additional complaints, except as docu Reports system reviewed and no additional complaints, except as documented and Reports as per HPI Psychiatric: Reports no additional psychiatric complaints and Reports as per HPI Endocrine: Reports no additional endocrine complaints, Reports as per HPI and Denies palpitations Hematologic/Lymphatic: Reports no additional hematologic/lymphatic complaints and Reports as per HPI Allergic/Immunologic: Reports no additional allergic/immunologic complaints and Reports as per HPI Physical Exam Vital Signs: Last Vital Signs Temp 97.0 F 09/16/24 07:29 Pulse 77 09/16/24 07:29 Resp 24 H 09/16/24 07:29 BP 160/79 H 09/16/24 07:29 Pulse Ox 98 09/16/24 07:29 O2 Del Method Room Air 09/16/24 07:29 BMI result Body Mass Index 25.7 Const General: comfortable and no acute distress Orientation/consciousness: patient oriented x3 HEENT Other: Unremarkable Head: Yes normal to inspection Neck Neck: Yes normal visual inspection Chest Chest palpation & inspection: normal inspection of the chest Resp Auscultation: clear to auscultation bilaterally Cardio Palpation: normal PMI Heart sounds: S1 normal heart sound present, S2 normal heart sound present, no gallops, no murmurs and no rubs GI Palpation (GI): Soft to palpation Back/Spine/Pelvis Other: unremarkable Skin General skin exam: no rashes or lesions noted Neuro General: patient oriented x3 Extrem General: Yes normal to inspection Psych Mental Status: mental status grossly normal Objective Labs and Meds 09/15/24 05:27 09/15/24 05:27 Lab results: Laboratory Results - last 24 hr 09/15/24 09/15/24 09/16/24 15:21 21:05 07:09 POC Glucose 148 H 157 H 135 H Progress Note: A&P Assessment and plan (1) Hypertensive emergency: Status: Acute Assessment and Plan: Improving. He was in the 200s initially but now about 160/79 mm Hg. Likely all related to not taking medications. Currently on carvedilol, lisinopril, amlodipine. Go up on the carvedilol dose. Also on diuretics. (2) Acute congestive heart failure: Status: Acute Assessment and Plan: Suspect related to poor rate control hypertension. Could have cardiac dysfunction. Await echocardiogram. Diuresis as above. Plan Discussed with daughter at the bedside. Time Spent With Patient Time: Total time managing care of this patient today ____ minutes. Progress Note: Quality Stroke Does the patient have a stroke diagnosis?: No Procedures Date of Service Date of Service: 09/16/24
--- NOTE | 2024-09-16 09:28 | P.CONNP_ITS ---
History of Present Illness Reason for Consult Consult date: 09/16/24 Reason for consult: Resistant hypertension Chief Complaint Chief complaint: CHF History of Present Illness Narrative: 79-year-old man presenting with complaints of shortness of breath and PND over the last few months. He reports that he had not followed with a medical provider for decades prior to 2022. Around that time he developed this feeling of inability to catch his breath and waking up in the middle of night gasping for air. He reports it would come and then go away on its own so he never sought medical assistance. He needed to have cataract surgery and therefore needed a primary care provider so he did seek that out. In 2022 he was found to be hypertensive and was started on medications. He states that since his blood pressure still elevated even on the medications why should she take the medications if they are not helping. He was seen by PCP in the past and was advised medication adjustment and Doppler of renal arteries . It appears that compliance might be an issues. Review of Systems Review of Systems Denies any recent fever chills or decrease in appetite respiratory see HPI cardiovascular denied chest pain, reported PND gastrointestinal denies any dysphagia abdominal pain nausea vomiting or diarrhea genitourinary denies any dysuria frequency or hematuria musculoskeletal denies any joint pain or swelling neuropsych denies any weakness or seizures all other systems reviewed are negative [facility] Past Medical History Medical History (Updated 09/25/24 @ 00:01 by Rosie Yu) HTN (hypertension) Acute respiratory disease Elevated PSA Cataract Surgical History Surgical History History of dental surgery History of vasectomy Social History Social History (Updated 09/20/24 @ 10:06 by ROLY Vail) Household Members: None Housing: House Do you presently have visiting nurse or other home services: No Alcohol intake: never Patient Tobacco Use Status: Former Tobacco user (09/14/24) Tobacco use type: Cigarette Cigarettes Per Day: 10 Years Smoked: 40 plus e-Cigarette/Vaping Use: Never Used Second Hand Smoke Exposure: Yes service: No Current occupational status: retired Current occupation: [employer] Cognitive needs: Yes (Cane) Hearing needs: No Vision needs: Yes (glasses) Meds Allergies Allergy/AdvReac Type Severity Reaction Status Date / Time No Known Allergies Allergy Verified 09/20/24 10:01 Active Medications: Current Medications Acetaminophen (Acetaminophen 325 Mg Tablet) 650 mg PO Q6H PRN PRN Reason: Pain, Mild 1-3,fever,headache Amlodipine Besylate (Amlodipine Besylate 10 Mg Tablet) 10 mg PO DAILY REPLACED BY [facility]; Protocol Last Admin: 09/16/24 08:57 Dose: 10 mg Calcium Carbonate (Calcium Carbonate 750 Mg Tab.Chew) 750 mg PO Q4H PRN PRN Reason: Heartburn Carvedilol (Carvedilol 6.25 Mg Tablet) 6.25 mg PO BID REPLACED BY [facility]; Protocol Last Admin: 09/16/24 08:57 Dose: 6.25 mg Dextrose (Dextrose 50 % 25 Gm/50 Ml Syringe) 25 gm IVPUSH Q15M PRN; Protocol PRN Reason: per Hypoglycemia Standing Ord. Fluticasone Propionate (Fluticasone Propionate Nasal 16 Gm [place]) 1 spray NOSTRIL-B BID PRN PRN Reason: Nasal Congestion Furosemide (Furosemide 40 Mg/4 Ml Vial) 40 mg IVPUSH DAILY REPLACED BY [facility]; Protocol Last Admin: 09/16/24 08:58 Dose: 40 mg Glucose (Glucose Gel 15 Gm Gel..Gram.) 15 gm PO Q15M PRN; Protocol PRN Reason: per Hypoglycemia Standing Ord. Heparin Sodium (Porcine) (Heparin Sodium,Porcine 5,000 Unit/Ml Vial) 5,000 unit SUBCUT Q12H REPLACED BY [facility] Last Admin: 09/16/24 04:00 Dose: Not Given Hydralazine HCl (Hydralazine Hcl 20 Mg/Ml Vial) 5 mg IVPUSH Q4H PRN; Protocol PRN Reason: SBP>190 Last Admin: 09/14/24 17:51 Dose: 5 mg Insulin Human Lispro (Insulin Lispro 100 Unit/Ml 3 Ml Vial) 0 unit SUBCUT QIDACHS REPLACED BY [facility]; Protocol Last Admin: 09/16/24 07:38 Dose: Not Given Lisinopril (Lisinopril 40 Mg Tablet) 40 mg PO DAILY REPLACED BY [facility]; Protocol Last Admin: 09/16/24 08:57 Dose: 40 mg Magnesium Hydroxide (Milk Of Magnesia 30 Ml Oral.Susp) 30 ml PO DAILY PRN PRN Reason: Constipation Melatonin (Melatonin 3 Mg Tablet) 6 mg PO BEDTIME PRN PRN Reason: Insomnia Nicotine Polacrilex (Nicotine Polacrilex 2 Mg Gum) 2 mg BUCCAL Q2H PRN PRN Reason: Nicotine Cravings Ondansetron HCl (Ondansetron Hcl 4 Mg/2 Ml Vial) 4 mg IVPUSH Q8H PRN PRN Reason: Nausea and Vomiting Sodium Chloride (0.9 % Sodium Chloride Flush 3 Ml Syringe) 3 ml IVFLUSH QSHIFT EDNA Last Admin: 09/16/24 08:58 Dose: 3 ml Physical Exam Vital Signs: Last Vital Signs Temp 97.0 F 09/16/24 07:29 Pulse 77 09/16/24 07:29 Resp 24 H 09/16/24 07:29 BP 160/79 H 09/16/24 07:29 Pulse Ox 98 09/16/24 07:29 O2 Del Method Room Air 09/16/24 07:29 BMI result Body Mass Index 25.7 Awake. Comfortable. Neck is supple. Mucosa moist. Lungs bilateral scattered rhonchi. Heart S1-S2 heard no gallop. Abdomen soft. Extremities no edema. No involuntary movements. No myoclonus. Results Lab Results 09/15/24 05:27 09/15/24 05:27 Lab results: Chemistry 09/14/24 09/15/24 09:29 05:27 Sodium 142 139 Potassium 3.9 3.3 Carbon Dioxide 21 L 21 L BUN 16 24 H Creatinine 0.97 1.11 Calcium 9.5 9.8 Hematology 09/14/24 09/15/24 09:29 05:27 WBC 10.5 8.8 Hgb 14.9 15.3 Plt Count 224 247 Assessment and Plan (1) Hypertensive emergency: Status: Acute (2) Congestive heart failure: Status: Acute (3) CKD (chronic kidney disease): Status: Acute (4) Diabetes: Status: Acute Plan 79-year-old man with resistant hypertension and congestive heart failure. Mild CKD in a setting of longstanding hypertension. Underlying renal artery stenosis should be ruled out. Obtain Doppler of renal arteries. Optimize blood pressure. Can add oral hydralazine and and titrate dose cautiously. Keep output more than intake Agree with cautious diuresis. Keep on low-sodium diet. Goal is to get systolic blood pressure under 140 mm Hg. Avoid hypotension. She will follow along with the team Procedures Date of Service Date of Service: 09/25/24
[2024-09-16 11:32] LABS: Glucose, Whole Blood 156 mg/dL (60-115)
[2024-09-16] MEDS: Insulin Lispro 100 UNIT/ML 3 ML VIAL SUBCUT (11:48)
--- NOTE | 2024-09-16 12:46 | MHC.CM.PN ---
EMR reviewed and per MD rounds, pt is not medically cleared for discharge due to management of HTN. This CM met with pt to discuss issue with his medicare (per PCP's office which pt is still active with), referral sent to [facility] financial counselor who advised for pt to call medicare to straighten things out.
--- NOTE | 2024-09-16 15:44 | P.PNIM_ITS ---
Subjective Subjective Date of Service: 09/16/24 Interval History: uncontrolled htn Review of Systems sob seems improving bp still uncontrolled denies any chest pain Physical Exam 2 Vital Signs: Vital Signs: Last Vital Signs Temp 97.3 F 09/16/24 15:18 Pulse 79 09/16/24 15:18 Resp 16 09/16/24 15:18 BP 163/76 H 09/16/24 15:18 Pulse Ox 97 09/16/24 15:18 O2 Del Method Room Air 09/16/24 15:18 BMI result Body Mass Index 25.5 Appearing in no acute distress chest: lung sounds mild rales heart regular rate rhythm, S1, S2 heard positive bowel sounds, abdomen is soft, nontender neuro patient is alert x3, no focal deficits Objective Data Active Medications Acetaminophen (Acetaminophen 325 Mg Tablet) 650 mg PO Q6H PRN PRN Reason: Pain, Mild 1-3,fever,headache Amlodipine Besylate (Amlodipine Besylate 10 Mg Tablet) 10 mg PO DAILY [facility]; Protocol Last Admin: 09/16/24 08:57 Dose: 10 mg Documented By: DANIEL Calcium Carbonate (Calcium Carbonate 750 Mg Tab.Chew) 750 mg PO Q4H PRN PRN Reason: Heartburn Carvedilol (Carvedilol 6.25 Mg Tablet) 6.25 mg PO BID [facility]; Protocol Last Admin: 09/16/24 08:57 Dose: 6.25 mg Documented By: DANIEL Dextrose (Dextrose 50 % 25 Gm/50 Ml Syringe) 25 gm IVPUSH Q15M PRN; Protocol PRN Reason: per Hypoglycemia Standing Ord. Fluticasone Propionate (Fluticasone Propionate Nasal 16 Gm D [place]) 1 spray NOSTRIL-B BID PRN PRN Reason: Nasal Congestion Furosemide (Furosemide 40 Mg Tablet) 40 mg PO DAILY [facility]; Protocol Glucose (Glucose Gel 15 Gm Gel..Gram.) 15 gm PO Q15M PRN; Protocol PRN Reason: per Hypoglycemia Standing Ord. Heparin Sodium (Porcine) (Heparin Sodium,Porcine 5,000 Unit/Ml Vial) 5,000 unit SUBCUT Q12H [facility] Last Admin: 09/16/24 04:00 Dose: Not Given Documented By: LILIANA Non-Admin Reason: Patient Refused Comments: Hydralazine HCl (Hydralazine Hcl 20 Mg/Ml Vial) 5 mg IVPUSH Q4H PRN; Protocol PRN Reason: SBP>190 Last Admin: 09/14/24 17:51 Dose: 5 mg Documented By: LYNN Insulin Human Lispro (Insulin Lispro 100 Unit/Ml 3 Ml Vial) 0 unit SUBCUT QIDACHS [facility]; Protocol Last Admin: 09/16/24 11:48 Dose: 2 unit Documented By: DANIEL Comments: Lisinopril (Lisinopril 40 Mg Tablet) 40 mg PO DAILY [facility]; Protocol Last Admin: 09/16/24 08:57 Dose: 40 mg Documented By: DANIEL Magnesium Hydroxide (Milk Of Magnesia 30 Ml Oral.Susp) 30 ml PO DAILY PRN PRN Reason: Constipation Melatonin (Melatonin 3 Mg Tablet) 6 mg PO BEDTIME PRN PRN Reason: Insomnia Nicotine Polacrilex (Nicotine Polacrilex 2 Mg Gum) 2 mg BUCCAL Q2H PRN PRN Reason: Nicotine Cravings Ondansetron HCl (Ondansetron Hcl 4 Mg/2 Ml Vial) 4 mg IVPUSH Q8H PRN PRN Reason: Nausea and Vomiting Sodium Chloride (0.9 % Sodium Chloride Flush 3 Ml Syringe) [facility] Last Admin: 09/16/24 08:58 Dose: 3 ml Documented By: DANIEL Labs 09/15/24 05:27 09/15/24 05:27 Labs: Laboratory Results - last 24 hr 09/15/24 09/16/24 09/16/24 21:05 07:09 11:25 POC Glucose 157 H 135 H 156 H Assessment and Plan (1) Hypertensive emergency: Status: Acute (2) Acute congestive heart failure: Status: Acute Assessment and Plan: 79-year-old man admitted with acute congestive heart failure Acute congestive heart failure-Unspecified etiology unclear sob somewhat improving BNP [phone] Chest x-ray showing pulmonary vascular congestion bibasilar interstitial edema plan: i/o neg 2 liters , bnp improving echo Strict intake and output and daily weights cardiology eval noted-Suspect related to poor rate control hypertension. Could have cardiac dysfunction. Will need an echocardiogram. added coreg in addition to amlodipine,lisinopril . adjusted iv lasix 40 mg qd Hypertensive uncontrolled renal doppler for uncontrolled htn continue lisinopril,adjusted amlodipine to 10mg qd, bp still uncontrolled-added coreg 3.125mg bid. new onset dm 2: Check A1c 6.8 fs with sliding scale coverage Tobacco dependence Nicotine replacement therapy offered DVT prophylaxis with heparin. Full code. ongoing need for stay -htn uncontrolled ,chf excerebation, new onset dm - need close monitering i/o,iv lasix and tele as well as bp monitering. Quality Stroke Does the patient have a stroke diagnosis?: No VTE Prior VTE?: No VTE Risk Level:: Medical - moderate - high VTE Device Contraindication: Treatment Not Indicated VTE Drug Contraindication: N/A - Med Ordered
[2024-09-16 16:45] LABS: Glucose, Whole Blood 113 mg/dL (60-115)
[2024-09-16] MEDS: Melatonin 3 MG TABLET 6 MG PO (20:09)
[2024-09-16 20:27] LABS: Glucose, Whole Blood 146 mg/dL (60-115)
[2024-09-17 03:52] VITALS: BP 110/54; PULSE 74; RESP 18; TEMP 36.3; O2SAT 93
[2024-09-17 06:00] VITALS: BMI 24.8
[2024-09-17 07:20] VITALS: BP 137/64; PULSE 65; RESP 20; TEMP 35.9; O2SAT 96
[2024-09-17 07:21] LABS: Glucose, Whole Blood 147 mg/dL (60-115)
--- NOTE | 2024-09-17 07:35 | P.DS_ITS ---
DS: Providers Provider Date of Service: 09/17/24 Date of admission: 09/14/24 14:24 Date of discharge: 09/17/24 Primary care physician: Guillermo Nicole PA-C Consults: 09/14/24 14:26 Consult to Cardiology Routine Consulting Provider: [facility] Reason for consultation: CHF 09/14/24 14:30 Consult to Nephrology Routine Consulting Provider: [facility] Reason for consultation: HTN DS: Diagnosis Discharge Diagnosis (1) Hypertensive emergency: Status: Acute (2) Acute congestive heart failure: Status: Acute DS: Summary Hospital Course Hospital Course: HPI: 79-year-old man presenting with complaints of shortness of breath and PND over the last few months. He reports that he had not followed with a medical provider for decades prior to 2022. Around that time he developed this feeling of inability to catch his breath and waking up in the middle of night gasping for air. He reports it would come and then go away on its own so he never sought medical assistance. He needed to have cataract surgery and therefore needed a primary care provider so he did seek that out. In 2022 he was found to be hypertensive and was started on medications. He states that since his blood pressure still elevated even on the medications why should she take the medications if they are not helping. Therefore it appears that he has not been taking any blood pressure medications and he was unable to say which specifically he was on. In the ER, blood pressure was as high as 227/129. He received hydralazine, amlodipine, nitroglycerin, lisinopril, Lasix, hydrochlorothiazide with some relief and blood pressure. He denied chest pain, nausea, vomiting, diarrhea, sick contacts, recent travel. Chest x-ray showed pulmonary vascular congestion with bibasilar interstitial edema and probable minimal bibasilar airspace disease with trace left pleural effusion. Plan is to admit patient and treat for acute congestive heart failure. hospital course: 79-year-old man came with sob : found to elevated bnp , sob ,significant elevated bp, cxr showed pulmonary congestion-admitted with acute congestive heart failureand htn emergency: started on iv lasix , continued lisinopril and amlodipine ,also added coreg : patient diursed well and bp seems to be improving significantly, in addtion echo:The left ventricular systolic function is normal. The calculated ejection fraction is 60%. also enal doppler done for uncontrolled htn- No evidence of renal artery stenosis or abnormal waveforms bilaterally on color/spectral Doppler examination (based on peak systolic velocities and resistive indices). ckd 3a: renal function seems near baseline ,moniter bmp in 1 week outpatient. patient will be going home with po lasix 40 mg po qd as well as coreg 3.125 mg po bid.closely moniter bp outpatient. CHF education given-if gains weight 2 lb or more in a week-will need outpatient Lasix dosing assessment with PCP. Consider Follow-up with cardiology outpatient. strongly advised to abstain from smoking. has 1-2 episode of loose stools -self resolving , no other abd complaints.feels better , no further episodes . new onset dm : fs mostly in 140-150 range , moniter fs closely /keep diary, dm diet and education. might benefit from repeating Hba1c levels outpatient. currently Hba1c is 6.8. Considering borderline fingersticks and was not on diabetic diet food before- discussed with the patient and his daughter currently plan to monitor fingersticks on diabetic diet if consistently elevated then repeat Hba1c in 1 week with pcp,consider oral hypoglycemic if needed. renal us shows:Incidental note of numerous large gallstones within the gallbladder. Currently asymptomatic. Follow-up with PCP outpatient. plan: po lasix 40 mg po qd as well as coreg 3.125 mg po bid. follow up bmp outpatient follow up with pcp and nephrology outpatient. Cardiology may arrange their own appointment if needed. Above management discussed with the patient and his daughter in detail length, they both understand and in agreement with the above plan, time spent 40 minute. Time Attestation Total time managing care of this patient today: 40 mintues. Discharge Coordination Time (in mins): 40min Quality: Safe Use of Opioids Does Pt have an Active Cancer Diagnosis on the Problem List?: No Quality: Stroke Does the patient have a stroke diagnosis?: No Physical Exam Vital Signs: Vital Signs: Last Vital Signs Temp 96.7 F L 09/17/24 07:20 Pulse 65 09/17/24 07:20 Resp 20 09/17/24 07:20 BP 137/64 09/17/24 07:20 Pulse Ox 96 09/17/24 07:20 O2 Del Method Room Air 09/17/24 07:20 BMI result Body Mass Index 24.8 Appearing in no acute distress chest: lung sounds mild rales heart regular rate rhythm, S1, S2 heard positive bowel sounds, abdomen is soft, nontender neuro patient is alert x3, no focal deficits DS: Data Data Completed and Pending Labs on day of discharge: Laboratory Results - last 24 hr 09/16/24 09/16/24 09/16/24 11:25 16:40 20:08 POC Glucose 156 H 113 146 H 09/17/24 07:11 POC Glucose 147 H Imaging Chest x-ray: Radiologist's impression: ITS Impressions Renal Ultrasound 09/16/24 14:00 IMPRESSION: 1. No evidence of renal artery stenosis or abnormal waveforms bilaterally on color/spectral Doppler examination (based on peak systolic velocities and resistive indices). 2. Bilateral renal parenchyma is normal. 3. Incidental note of numerous large gallstones within the gallbladder. Electronically signed by: Scottie Magaña MD 09/16/2024 03:23 PM [facility] Discharge Plan Discharge Anticipated Discharge Date/Time: 09/17/24 07:24 Patient Disposition: Home Health Service Discharge Diagnosis: chf ,htn Referrals: shawna huston [Other] - 1 Week Nathaniel Ruiz MD [Physician] - 2 Weeks Guillermo Nicole PA-C [Primary Care Provider] - 1 Week Discharge Medications: New furosemide 40 mg Tablet 40 mg PO DAILY Qty: 90 0RF Protocol: Hold for SBP< HOLD for SBP < : 90 carvedilol 6.25 mg Tablet 3.125 mg PO BID Qty: 60 0RF Protocol: Hold for SBP/HR < HOLD for SBP < : 90 HOLD for HR < : 60 amlodipine 10 mg Tablet 10 mg PO DAILY Qty: 90 0RF Protocol: Hold for SBP< HOLD for SBP < : 90 lisinopril 40 mg Tablet 40 mg PO DAILY Qty: 90 0RF Protocol: Hold for SBP< HOLD for SBP < : 90 (DME) FreeStyle Lite Strips Strip Qty: 100 0RF Rx Instructions: Test four times a day or as directed. (DME) blood-glucose meter [FreeStyle Lite Meter] Kit Qty: 1 0RF Rx Instructions: As Directed alcohol swabs Pads, Medicated 1 pad TOPICAL QIDACHS Qty: 100 0RF Rx Instructions: Use four times a day or as directed. (DME) pen needle, diabetic 32 gauge x 1/4 needle Qty: 100 0RF Rx Instructions: Use four times a day or as directed. (DME) lancets [FreeStyle Lancets] 28 gauge misc Qty: 100 0RF Rx Instructions: Test four times a day or as directed. Discharge Orders: Discharge Order (Routine); Ordered 09/17/24 Ordered By: Fernando Gorman Diet: Diabetic diet Activity on Discharge: As tolerated Stand Alone Forms: Patient Portal Discharge page Print Language: Hungarian Other Ambulatory Orders: Basic Metabolic Panel (Routine) Timeframe: 1 Week Facility: [facility] - Location: Laboratory Ordered By: Fernando Gorman Hemoglobin A1c (Routine) Timeframe: 1 Week Facility: [facility] - Location: Laboratory Ordered By: Fernando Gorman Lipid Panel (Routine) Timeframe: 1 Week Facility: [facility] - Location: Laboratory Ordered By: Fernando Gorman Care Plan Goals: 79-year-old man came with sob : found to elevated bnp , sob ,significant elevated bp, cxr showed pulmonary congestion-admitted with acute congestive heart failureand htn emergency: started on iv lasix , continued lisinopril and amlodipine ,also added coreg : patient diursed well and bp seems to be improving significantly, in addtion echo:The left ventricular systolic function is normal. The calculated ejection fraction is 60%. also enal doppler done for uncontrolled htn- No evidence of renal artery stenosis or abnormal waveforms bilaterally on color/spectral Doppler examination (based on peak systolic velocities and resistive indices). ckd 3a: renal function seems near baseline ,moniter bmp in 1 week outpatient. patient will be going home with po lasix 40 mg po qd as well as coreg 3.125 mg po bid.closely moniter bp outpatient. CHF education given-if gains weight 2 lb or more in a week-will need outpatient Lasix dosing assessment with PCP. Consider Follow-up with cardiology outpatient. strongly advised to abstain from smoking. has 1-2 episode of loose stools -self resolving , no other abd complaints.feels better , no further episodes . new onset dm : fs mostly in 140-150 range , moniter fs closely /keep diary, dm diet and education. might benefit from repeating Hba1c levels outpatient. currently Hba1c is 6.8. need to closely moniter if fs not controlled on dm diet repeat Hba1c in 1 week with pcp,consider oral hypoglycemic if needed. Health Concerns: as above. Plan of Treatment: po lasix 40 mg po qd as well as coreg 3.125 mg po bid. follow up bmp outpatient follow up with pcp and nephrology outpatient. Assessment: As above. Patient Instructions: Heart Failure (DC), Hypertension and Diabetes (DC), Diabetes and Exercise (DC)
[2024-09-17] MEDS: Furosemide 40 MG TABLET PO (08:25)
[2024-09-17] MEDS: amLODIPine Besylate 10 MG TABLET PO (08:25)
[2024-09-17] MEDS: lisinopriL 40 MG TABLET PO (08:26)
[2024-09-17] MEDS: carvediloL 3.125 MG TABLET PO (08:26)
[2024-09-17] MEDS: 0.9 % Sodium Chloride Flush 3 ML SYRINGE IVFLUSH ×2 (08:27)
[2024-09-17 11:40] VITALS: BP 158/68; PULSE 96; RESP 20; TEMP 36.4; O2SAT 97
[2024-09-17 11:42] LABS: Glucose, Whole Blood 183 mg/dL (60-115)
--- NOTE | 2024-09-17 12:53 | MHC.CM.PN ---
Addendum entered by Laverne Wilson 09/17/24 13:26: CM met with Patient and Daughter/Laura at bedside to review the dc plan. [facility] has accepted Patient and Patient and Daughter are in agreement with the plan. Addendum entered by Laverne Wilson 09/17/24 13:20: Per MD, Patient is requesting [facility]; [facility] has accepted Patient for SN and will see Patient within 48 hours. MD is aware. Original Note: Per ROUNDS discussion, Patient may be medically cleared today to go home, self care. Last IMM addressed on 09/15/2024. CM will follow.
--- NOTE | 2024-09-17 13:10 | W.MHC.F2F ---
Service Date Service Date: 09/17/24 Encounter Date of encounter: 09/17/24 Encounter: chf, htn Reasons for Services Signs and symptoms assessed: Shortness of breath or chest pain or diarrhea or abdominal pain. Reason for mcfp: CV/CP assess and/or care, diabetic teaching, monitoring of unstable blood sugar, monitoring of PT/INR, medication management, medication treatment and teach disease management MD Overseeing Care: Guillermo Nicole Homebound: Leaving the home is medically contraindicated at this time without the asist of a device and/or another person due th the listed conditions above and below. Reason homebound: weakness related to hospital stay Homebound supporting statement: Patient is generalised weak post hospitlisation and need help with going to appointments and labs draws . Certification: Based on the above findings, I certify that this patient is confined to the home and needs intermittent mcfp care, physical therapy and/or speech therapy, or continues to need occupational therapy. The patient is under my care, and I have initiated the establishment of the plan of care. The patient will be followed by a physician who will periodically review the plan of care. Time Spent With Patient Time: Total time managing care of this patient today ____ minutes.
== END 2024-09-17 13:50 | disposition home health service (06) | DRG 305 ==
LOC: HO.ED 12:45 → HO.EDOVER 14:29 → HO.ICU 09-15 05:47 → HO.EDOVER 09-15 05:49 → HO.IMC 09-15 08:44
PROVIDERS: Physician Assistant Medical; Admitting Provider Nurse Practitioner Acute Care; Emergency Provider Emergency Medicine; PCP Physician Assistant; Visit Provider Internal Medicine
DX: I16.1 Hypertensive emergency (principal); I13.0 Hypertensive heart and chronic kidney disease with heart failure and stage 1 through stage 4 chronic kidney disease, or unspecified chronic kidney disease; I50.9 Heart failure, unspecified; I1A.0 Resistant hypertension; N18.31 Chronic kidney disease, stage 3a; E11.22 Type 2 diabetes mellitus with diabetic chronic kidney disease; E11.65 Type 2 diabetes mellitus with hyperglycemia; F17.210 Nicotine dependence, cigarettes, uncomplicated; Z71.6 Tobacco abuse counseling; T46.4X6A Underdosing of angiotensin-converting-enzyme inhibitors, initial encounter; T46.1X6A Underdosing of calcium-channel blockers, initial encounter; T50.2X6A Underdosing of carbonic-anhydrase inhibitors, benzothiadiazides and other diuretics, initial encounter; Z20.822 Contact with and (suspected) exposure to COVID-19
CPT/HCPCS: 0241U; 36415; 71045; 80048; 80076; 82947; 83036; 83880; 84443; 84484; 85025; 93005; 93306; 93975; 97161; 99285; J0360; J1644; J1940; Q9957

== ENCOUNTER → 2024-09-14 09:15 | Outpatient (BNV) | payer MEDICARE, SELFPAY | PROVIDERS: PCP Physician Assistant; Visit Provider Radiology Diagnostic Radiology | DX: R06.09 Other forms of dyspnea (principal) | CPT/HCPCS: 71045 ==

== ENCOUNTER 2024-09-14 14:24 | Outpatient (BNV) | payer MEDICARE, SELFPAY | END 2024-09-16 07:00 | PROVIDERS: Admitting Provider Nurse Practitioner Acute Care; Emergency Provider Emergency Medicine; PCP Physician Assistant; Visit Provider Internal Medicine | DX: I34.81 Nonrheumatic mitral (valve) annulus calcification (principal); I51.89 Other ill-defined heart diseases | CPT/HCPCS: 93306 ==

== ENCOUNTER 2024-09-14 14:24 | Outpatient (BNV) | payer MEDICARE, SELFPAY | END 2024-09-16 14:00 | PROVIDERS: Admitting Provider Nurse Practitioner Acute Care; Emergency Provider Emergency Medicine; PCP Physician Assistant; Visit Provider Radiology Diagnostic Radiology | DX: I10 Essential (primary) hypertension (principal) | CPT/HCPCS: 93975 ==

== ENCOUNTER → 2024-09-14 14:24 | Outpatient (BNV) | payer MEDICARE, SELFPAY | PROVIDERS: Admitting Provider Nurse Practitioner Acute Care; Emergency Provider Emergency Medicine; PCP Physician Assistant; Visit Provider Internal Medicine | DX: I16.1 Hypertensive emergency (principal); I50.9 Heart failure, unspecified | CPT/HCPCS: 93010; 99223 ==

== ENCOUNTER → 2024-09-14 14:24 | Outpatient (BNV) | payer MEDICARE, SELFPAY | PROVIDERS: Admitting Provider Nurse Practitioner Acute Care; Emergency Provider Emergency Medicine; PCP Physician Assistant; Visit Provider Internal Medicine Hypertension Specialist | DX: I16.1 Hypertensive emergency (principal); I50.9 Heart failure, unspecified; N18.9 Chronic kidney disease, unspecified; E11.9 Type 2 diabetes mellitus without complications | CPT/HCPCS: 99223; 99499 ==

== ENCOUNTER → 2024-09-14 14:24 | Outpatient (BNV) | payer MEDICARE, SELFPAY | PROVIDERS: Admitting Provider Nurse Practitioner Acute Care; Emergency Provider Emergency Medicine; PCP Physician Assistant; Visit Provider Nurse Practitioner Acute Care | DX: I16.1 Hypertensive emergency (principal); I50.9 Heart failure, unspecified | CPT/HCPCS: 99223; 99231; 99232; 99239; G0180 ==

== ENCOUNTER 2024-09-20 09:52 | Outpatient (REF) | payer MEDICARE, SELFPAY ==
[2024-09-20 12:15] LABS: Appearance Urine Clear; Color Urine Yellow; Glucose Urine UA Negative (Negative); Leukocyte Esterase Urine Negative (Negative); Nitrite Urine Negative (Negative); Specific Gravity - Urine 1.015 (1.005-1.025); Urine Blood Negative (Negative); Urine Ketones Negative (Negative); Urine Protein Negative (Neg-Trace)
== END 2024-09-20 09:53 | disposition home or self-care (01) ==
LOC: HO.LAB 09:52
PROVIDERS: PCP Physician Assistant; Visit Provider Nurse Practitioner Family
DX: I13.0 Hypertensive heart and chronic kidney disease with heart failure and stage 1 through stage 4 chronic kidney disease, or unspecified chronic kidney disease (principal); N18.30 Chronic kidney disease, stage 3 unspecified; I50.9 Heart failure, unspecified; J06.9 Acute upper respiratory infection, unspecified
CPT/HCPCS: 81003; 96127; 99212

== ENCOUNTER 2024-09-20 09:52 | Outpatient (AMB) | payer MEDICARE, SELFPAY ==
--- NOTE | 2024-09-20 09:58 | A.OFFPC_ITS ---
Vital Signs 09/20/24 10:01 Height 5 ft 10 in Weight 165 lb 8 oz BMI 23.7 BP 140/72 H Blood Pressure Location Lt brachial Position Sitting Pulse 65 Pulse Source Pulse Oximeter Temp 96.9 F Temp Source Temporal Artery Scan Pulse Oximetry (%) 95 Oxygen Delivery Method Room Air Intake Visit Reasons: [facility] 09/17 Difficulty Breathing/Fluid in lungs Intake Note: Patient is here for hospital discharge follow up. Patient was discharged from [facility] on 09/17/24. 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 Admitted at [facility] on 09/14/24 and discharged home on 09/17/24 due to Hypertension emergency and CHF. Pt c/o generalized body aches, fatigue, insomnia, headaches, poor appetite, and SOB since being discharged. Pt frustrated that he is not able to sleep for days now. Daughter believes that symptoms are related to medication side effects. She brought in medication leaflet pointing out all the medication side effects. [facility] Medical History (Updated 09/20/24 @ 11:01 by Bonita Valencia NP) HTN (hypertension) Acute respiratory disease Elevated PSA Cataract Surgical History History of dental surgery History of vasectomy Social History (Updated 09/20/24 @ 10:06 by ROLY Vail) Household Members: None Housing: House Do you presently have visiting nurse or other home services: No Alcohol intake: never Patient Tobacco Use Status: Former Tobacco user (09/14/24) Tobacco use type: Cigarette Cigarettes Per Day: 10 Years Smoked: 40 plus e-Cigarette/Vaping Use: Never Used Second Hand Smoke Exposure: Yes service: No Current occupational status: retired Current occupation: [employer] Cognitive needs: Yes (Cane) Hearing needs: No Vision needs: Yes (glasses) Questionnaire PHQ-9 Over the last 2 weeks, how often have you been bothered by any of the following problems? 1. Little interest or pleasure in doing things: nearly every day 2. Feeling down, depressed, or hopeless: nearly every day (Due to spouse passing ) 3. Trouble falling or staying asleep, or sleeping too much: nearly every day 4. Feeling tired or having little energy: nearly every day 5. Poor appetite or overeating: nearly every day 6. Feeling bad about yourself - or that you are a failure or have let yourself or your family down: not at all 7. Trouble concentrating on things, such as reading the newspaper or watching television: not at all 8. Moving or speaking so slowly that other people could have noticed. Or the opposite - being so fidgety or restless that you have been moving around a lot more than usual: not at all 9. Thoughts that you would be better off or of hurting yourself in some way: not at all Total score: 15 Depression Screening Interpretation: Positive Depression Screening Done: Yes Source: Developed by Drs. He Cardozo, Damaris Galindo, Madan Jacome and colleagues, with an educational vonda from [employer]. Thrive Questionnaire Date Thrive assessed: 09/15/24 AUDIT C Alcohol Use Questionnaire (AUDIT-C) 1. How often do you have a drink containing alcohol?: Monthly or less 2. How many drinks containing alcohol do you have on a typical day when you are drinking?: 1 or 2 Total Score: 1 ROSANA-7 AMB Questionnaire ROSANA-7 Date ROSANA - 7 assessed: 09/20/24 Feeling nervous, anxious, or on edge: 3 = Nearly every day Not being able to stop or control worryin = Several days Worrying too much about different things: 1 = Several days Trouble relaxin = Not at all Being so restless that it is hard to sit still: 0 = Not at all Becoming easily annoyed or irritable: 3 = Nearly every day Feeling afraid as if something awful might happen: 2 = More than half the days Total ROSANA-7 score (0-4 normal; 5-9 mild; 10-14 moderate; 15-21 severe): 10 Source: Developed by Drs. He Cardozo, Damaris Galindo, Madan Jacome and colleagues, with an educational vonda from [employer]. Review of Systems Const All systems reviewed & are unremarkable except as noted in HPI and below Physical exam (Primary Care) Vital Signs: Last Vital Signs Temp 96.9 F 09/20/24 10:01 Pulse 65 09/20/24 10:01 BP 140/72 H 09/20/24 10:01 Pulse Ox 95 09/20/24 10:01 Oxygen Delivery Method Room Air 09/20/24 10:01 BMI result Body Mass Index 23.7 Tobacco/Smoking Status: Tobacco use Status Tobacco use date assessed 09/20/24 09/20/24 10:09 Patient Tobacco Use Status Former Tobacco user (09/14/24 09/20/24 10:09 ) Tobacco use type Cigarette 09/20/24 10:09 e-Cigarette/Vaping Use Never Used 09/20/24 10:09 PHQ-9: PHQ-9 Score PHQ-9: Total score 15 09/20/24 10:21 Depression Screening Interpretation: Positive Thrive Assessment: Date of Thrive Assessment Date Thrive assessed 09/15/24 09/20/24 10:09 Const General: no acute distress, lethargic and tired appearing Nutritional Appearance: overweight Orientation/consciousness: patient oriented x3 and lethargic Resp Effort & Inspection: normal respiratory effort and able to speak in complete sentences Cardio Heart sounds: S1 normal heart sound present and S2 normal heart sound present Neuro General: patient oriented x3 Coding Level of Care Code Est Pt Level 4 (47522) Diagnoses Primary hypertension I10 Hypertension type: primary hypertension Stage 3 chronic kidney disease, unspecified whether stage 3a or 3b CKD N18.30 Chronic kidney disease stage: stage 3 (moderate) Chronic kidney disease stage 3 subtype: unspecified whether 3a or 3b Acute respiratory disease J06.9 Acute congestive heart failure, unspecified heart failure type I50.9 Heart failure type: unspecified Heart failure chronicity: acute Time Spent (min) 20 Assessment & Plan Assessment & Plan (1) HTN (hypertension): Code(s): I10 - Essential (primary) hypertension Category: Medical Qualifiers: Hypertension type: primary hypertension Qualified Code(s): I10 - Essential (primary) hypertension Plan: Continue on current regiment. F/U with PCP. (2) CKD (chronic kidney disease): Code(s): N18.9 - Chronic kidney disease, unspecified Category: Medical Qualifiers: Chronic kidney disease stage: stage 3 (moderate) Chronic kidney disease stage 3 subtype: unspecified whether 3a or 3b Qualified Code(s): N18.30 - Chronic kidney disease, stage 3 unspecified Plan: Placed referral to [facility] (3) Acute respiratory disease: Code(s): J06.9 - Acute upper respiratory infection, unspecified Category: Medical Plan: Ordered Respiratory Panel. Ordered Urinalysis to r/o UTI (4) Congestive heart failure: Code(s): I50.9 - Heart failure, unspecified Category: Medical Qualifiers: Heart failure type: unspecified Heart failure chronicity: acute Qualified Code(s): I50.9 - Heart failure, unspecified Plan: Placed referral to Cardiology Orders: Orders UA CC w/rflx Micro + Cult Today N18.9 - Chronic kidney disease, unspecified Resp Pathogen Panel - [facility] Today J06.9 - Acute upper respiratory infection, unspecified Referrals Nephrology Referral I10 - Essential (primary) hypertension, N18.30 - Chronic kidney disease, stage 3 unspecified Cardiology Referral I10 - Essential (primary) hypertension, I50.9 - Heart failure, unspecified
[2024-09-20 10:01] VITALS: BP 140/72; PULSE 65; TEMP 36.1; O2SAT 95; BMI 23.7
== END 2024-09-20 11:13 | disposition home or self-care (01) ==
PROVIDERS: PCP Physician Assistant; Visit Provider Nurse Practitioner Family
DX: I10 Essential (primary) hypertension (principal); N18.30 Chronic kidney disease, stage 3 unspecified; J06.9 Acute upper respiratory infection, unspecified; I50.9 Heart failure, unspecified

== ENCOUNTER 2024-09-25 08:43 | Outpatient (REF) | payer MEDICARE, SELFPAY ==
[2024-09-25 10:12] LABS: Estimated Average Glucose 154 mg/dL; Hemoglobin A1C 203.9965 umol/L; Total Hemoglobin (HGBA1C) 3864.1093 umol/L
[2024-09-25 10:34] LABS: Anion Gap 14 (12-20); Blood Urea Nitrogen 18 mg/dL (9-16); Calcium 9.4 mg/dL (8.4-10.2); Carbon Dioxide 27 mmol/L (22-29); Chloride 103 mmol/L (96-108); Cholesterol 141 mg/dL (<200); Estimated Glomerular Filt Rate > 60; Glucose Random 158 mg/dL (60-115); HDL Cholesterol 48 mg/dL (>40); LDL Cholesterol Calculated 77 mg/dL (<100); Potassium 3.5 mmol/L (3.3-5.1); Sodium 140 mmol/L (135-145); Triglycerides 83 mg/dL (<150)
== END 2024-09-25 08:44 | disposition home or self-care (01) ==
LOC: HO.LAB 08:43
PROVIDERS: PCP Physician Assistant; Visit Provider Internal Medicine
DX: N18.9 Chronic kidney disease, unspecified (principal); I16.1 Hypertensive emergency; I50.9 Heart failure, unspecified; E11.9 Type 2 diabetes mellitus without complications
CPT/HCPCS: 36415; 80048; 80061; 83036

== ENCOUNTER 2024-10-09 14:49 | Outpatient (AMB) | payer MEDICARE, SELFPAY ==
--- NOTE | 2024-10-09 14:51 | HO.NEPHOV ---
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 He had not followed with a medical provider for decades prior to 2022. Around that time he developed this feeling of inability to catch his breath and waking up in the middle of night gasping for air. He reports it would come and then go away on its own so he never sought medical assistance. In 2022 he was found to be hypertensive and was started on medications. In the ER, blood pressure was as high as 227/129. He received hydralazine, amlodipine, nitroglycerin, lisinopril, Lasix, hydrochlorothiazide with some relief and blood pressure. He denied chest pain, nausea, vomiting, diarrhea, sick contacts, recent travel. Chest x-ray showed pulmonary vascular congestion with bibasilar interstitial edema and probable minimal bibasilar airspace disease with trace left pleural effusion.He was admitted for further management. Echo showed normal left ventricular systolic function. The calculated ejection fraction is 60%. Doppler did not show any evidence of renal artery stenosis or abnormal waveforms bilaterally . He is seen in follow up [facility] Medical History (Updated 10/09/24 @ 14:59 by Jordi Lowry MD) HTN (hypertension) Acute respiratory disease Elevated PSA Cataract Surgical History History of dental surgery History of vasectomy Social History Household Members: None Housing: House Do you presently have visiting nurse or other home services: No Alcohol intake: never Patient Tobacco Use Status: Former Tobacco user (09/14/24) Tobacco use type: Cigarette Cigarettes Per Day: 10 Years Smoked: 40 plus e-Cigarette/Vaping Use: Never Used Second Hand Smoke Exposure: Yes service: No Current occupational status: retired Current occupation: [employer] Cognitive needs: Yes (Cane) Hearing needs: No Vision needs: Yes (glasses) Review of Systems Const All systems reviewed & are unremarkable except as noted in HPI and below Physical Exam Const General: comfortable and no acute distress Orientation/consciousness: patient oriented x3 HEENT Head: Yes normocephalic Mouth: Normal oral and palatal mucosa present Eyes EOM: EOMs intact bilaterally Neck Neck: Yes supple Resp Auscultation: clear to auscultation bilaterally Cardio Jugular venous distension: no JVD Rate: regular rate GI Palpation (GI): Soft to palpation Auscultation: normal bowel sounds General: Yes no CVA tenderness Back/Spine/Pelvis Back: no CVA tenderness Skin General skin exam: no rashes or lesions noted Neuro General: patient oriented x3 and moves all extremities Extrem General: Yes no pedal edema Results Reviewed Nephrology Results: Hgb 15.3 g/dl (14.0-18.0) 09/15/24 WBC 8.8 X10*3/uL (4.8-10.8) 09/15/24 Plt Count 247 X10*3/uL (160-400) 09/15/24 Sodium 140 mmol/L (135-145) 09/25/24 Potassium 3.5 mmol/L (3.3-5.1) 09/25/24 Chloride 103 mmol/L (96-108) 09/25/24 Carbon Dioxide 27 mmol/L (22-29) 09/25/24 BUN 18 mg/dL (9-16) H 09/25/24 Creatinine 1.05 mg/dL (0.5-1.4) 09/25/24 Calcium 9.4 mg/dL (8.4-10.2) 09/25/24 Urine Protein Negative mg/dL (Neg-Trace) 09/20/24 Renal US 09/16/24 Assessment & Plan Assessment & Plan (1) HTN (hypertension): Code(s): I10 - Essential (primary) hypertension Category: Medical Qualifiers: Hypertension type: primary hypertension Qualified Code(s): I10 - Essential (primary) hypertension Plan Mild CKD in a setting of longstanding hypertension. No KYLER by Doppler;Low sodium diet Increase Carvedilol to 6.25 mg PO bid May need to consider switching Amlodipine to Imdur May be able to cut back diuretics with time No NSAID's and good hydration Labs in 2 M ; FU in 3 months Orders: Orders Electrolytes 2 Months I10 - Essential (primary) hypertension Creatinine 2 Months I10 - Essential (primary) hypertension Blood Urea Nitrogen 2 Months I10 - Essential (primary) hypertension Protein Creatinine Ratio, Ur 2 Months I10 - Essential (primary) hypertension Coding Level of Care Code Est Pt Level 4 (59959) Diagnoses Primary hypertension I10 Hypertension type: primary hypertension
[2024-10-09 14:54] VITALS: BP 170/80; PULSE 77; O2SAT 98; BMI 24.0
== END 2024-10-09 15:30 | disposition home or self-care (01) ==
LOC: HO.HKA 14:49
PROVIDERS: PCP Physician Assistant; Visit Provider Internal Medicine Nephrology
DX: I10 Essential (primary) hypertension (principal)
CPT/HCPCS: 99214

== ENCOUNTER → 2024-10-09 14:49 | Outpatient (BNVA) | payer MEDICARE, SELFPAY | PROVIDERS: PCP Physician Assistant; Visit Provider Internal Medicine Nephrology | DX: I10 Essential (primary) hypertension (principal) | CPT/HCPCS: 99212 ==

== ENCOUNTER 2024-12-09 10:30 | Outpatient (REF) | payer MEDICARE, SELFPAY ==
[2024-12-09 11:45] LABS: Anion Gap 14 (12-20); Blood Urea Nitrogen 17 mg/dL (9-16); Carbon Dioxide 26 mmol/L (22-29); Chloride 103 mmol/L (96-108); Estimated Glomerular Filt Rate > 60; Potassium 3.7 mmol/L (3.3-5.1); Sodium 139 mmol/L (135-145)
[2024-12-09 12:15] LABS: Creatinine Urine 95.58 mg/dL; Protein/Creatinine Ratio, Ur 0.18 (<0.2); Total Protein Urine Random 17 mg/dL (<12)
== END 2024-12-09 10:31 | disposition home or self-care (01) ==
LOC: HO.LAB 10:30
PROVIDERS: PCP Physician Assistant; Visit Provider Internal Medicine Nephrology
DX: I10 Essential (primary) hypertension (principal)
CPT/HCPCS: 36415; 80051; 82565; 82570; 84156; 84520

== ENCOUNTER 2024-12-11 15:39 | Outpatient (AMB) | payer MEDICARE, SELFPAY ==
--- NOTE | 2024-12-11 16:32 | MHC.PC.OV ---
Intake Visit Reasons: [facility] Allergies No Known Allergies Allergy (Verified 10/09/24 14:53) Tobacco use date assessed: 09/20/24 Dental Screening Dental Screen Date: 09/20/24 [facility] Medical History (Updated 10/09/24 @ 14:59 by Jordi Lowry MD) HTN (hypertension) Acute respiratory disease Elevated PSA Cataract Surgical History History of dental surgery History of vasectomy Social History Household Members: None Housing: House Do you presently have visiting nurse or other home services: No Alcohol intake: never Patient Tobacco Use Status: Former Tobacco user (09/14/24) Tobacco use type: Cigarette Cigarettes Per Day: 10 Years Smoked: 40 plus e-Cigarette/Vaping Use: Never Used Second Hand Smoke Exposure: Yes service: No Current occupational status: retired Current occupation: [employer] Cognitive needs: Yes (Cane) Hearing needs: No Vision needs: Yes (glasses) Questionnaire Thrive Questionnaire Date Thrive assessed: 09/15/24 ROSANA-7 AMB Questionnaire ROSANA-7 Date ROSANA - 7 assessed: 09/20/24 Source: Developed by Drs. He Cardozo, Damaris Galindo, Madan Jacome and colleagues, with an educational vonda from [employer]. Physical exam (Primary Care) Tobacco/Smoking Status: Tobacco use Status Tobacco use date assessed 09/20/24 09/20/24 10:09 Patient Tobacco Use Status Former Tobacco user 09/20/24 10:09 Tobacco use type Cigarette 09/20/24 10:09 e-Cigarette/Vaping Use Never Used 09/20/24 10:09 Thrive Assessment: Date of Thrive Assessment Date Thrive assessed 09/15/24 09/20/24 10:09 Coding
[2024-12-11 16:41] VITALS: BP 210/90; PULSE 72; TEMP 36.2; O2SAT 98; BMI 23.5
--- NOTE | 2024-12-11 16:42 | AM.OFFVISMDC ---
Intake Vital Signs 12/11/24 16:41 12/11/24 16:48 12/11/24 16:50 Height 5 ft 10 in Weight 163 lb 8 oz BMI 23.5 23.5 BP 210/90 H 198/88 H Blood Pressure Location Rt brachial Lt brachial Position Sitting Sitting Pulse 72 Pulse Source Pulse Oximeter Temp 97.1 F Temp Source Temporal Artery Scan Pulse Oximetry (%) 98 Oxygen Delivery Method Room Air Intake Visit Reasons: AWV [employer] Member Required: No Accompanied by: daughter-Tammi Allergies No Known Allergies Allergy (Verified 12/11/24 16:56) Medication List - Last Reconciled 12/11/24 by Guillermo Nicole PA-C acetaminophen 500 mg PO Q6H PRN alcohol swabs 1 pad topical QIDACHS amlodipine 10 mg See Protocol PO DAILY blood sugar diagnostic (FreeStyle Lite Strips) Test four times a day or as directed. blood-glucose meter (FreeStyle Lite Meter kit) As Directed carvedilol 3.125 mg See Protocol PO BID dextrin (Clear Fiber) 2 tsp PO DAILY furosemide 40 mg See Protocol PO DAILY lancets (FreeStyle Lancets) Test four times a day or as directed. lisinopril 40 mg See Protocol PO DAILY pen needle, diabetic Use four times a day or as directed. HPI AWV HPI Details Patient is a 79-year-old male here today for follow-up visit. Recently is here for annual wellness visit though changed to follow-up visit due to complexity of medical concerns at this time. Patient hospitalized about a month ago for acute Congestive heart failure. He presented with acute shortness of breath. Was found to pulmonary edema and and elevated blood pressure. He has establish care with a head of research & insights due to his uncontrolled blood pressure. He continues on lisinopril 40, carvedilol 3 mg b.i.d., furosemide 40 at this time. Today's blood pressure in office remains elevated. PLAN: Will increase his carvedilol to 6 0.25 mg b.i.d. for better blood pressure control.\ Type 2 diabetes: Recently found to be in new onset diabetic. A1c most recently at 7.0. Since his hospitalization he has been working on low carbohydrate diet and monitoring his blood sugars and blood pressure more often. Discuss starting metformin though he would like to hold off on antihyperglycemic medication for now and continue working on dietary modification. [facility]LY [facility] Medical History HTN (hypertension) Acute respiratory disease Elevated PSA Cataract Surgical History History of dental surgery History of vasectomy Social History Household Members: None Housing: House Do you presently have visiting nurse or other home services: No Alcohol intake: never Patient Tobacco Use Status: Former Tobacco user (09/14/24) Tobacco use type: Cigarette Cigarettes Per Day: 10 Years Smoked: 40 plus e-Cigarette/Vaping Use: Never Used Second Hand Smoke Exposure: Yes service: No Current occupational status: retired Current occupation: [employer] Cognitive needs: Yes (Cane) Hearing needs: No Vision needs: Yes (glasses) Questionnaire Medicare Wellness Checkup [age] What gender do you identify with?: male During the past 4 weeks, how much have you been bothered by emotional problems such as feeling anxious, depressed, irritable, sad or downhearted, and blue?: moderately During the past 4 weeks, has your physical & emotional health limited your social activities with family, friends, neighbors, or groups?: slightly During the past 4 weeks, how much bodily pain have you generally had?: no pain During the past 4 weeks, was someone available to help you if you needed & wanted help?: yes, as much as I wanted During the past 4 weeks, what was the hardest physical activity you could do for at least 2 minutes?: moderate Can you get to places out of walking distance without help? (For eg., can you travel alone on buses, taxis or drive your car?): Yes Can you go shopping for groceries or clothes without someone's help?: Yes Can you prepare your own meals?: Yes Can you do your housework without help?: Yes Because of any health problems, do you need the help of another person with your personal care needs such as eating, bathing, dressing or getting around the house?: No Can you handle your own money without help?: Yes During the past 4 weeks, how would you rate your health in general?: fair During the past 4 weeks how have things been going for you?: good & bad parts about equal Are you having difficulties driving your car?: no Do you always fasten your seat belt when you are in a car?: yes, usually During past 4 weeks, have you been bothered by the following: never: Falling or dizzy when standing up and Trouble eating well?, sometimes: Problems using the telephone? and often: Teeth or denture problems? and Tiredness or fatigue? Have you fallen 2 or more times in the past year?: No Are you afraid of falling?: No Are you a smoker?: yes, and I might quit During the past 4 weeks, how many drinks of wine, beer, or other alcoholic beverages did you have?: 1 drink or less per week Do you exercise for about 20 minutes 3 or more times a week?: no, I usually do not exercise this much Have you been given information to help with the following?: yes: Hazards in your house that might hurt you? and yes: Keeping track of your medications? How often do you have trouble taking medicines the way you have been told to take them?: I always take medicine as prescribed How confident are you that you can control & manage most of your health problems?: somewhat confident Activity of Daily Living Bathing - sponge bath, tub bath or shower: receives no assistance (gets in/out by self, if usual bathing means Dressing - getting clothes from closets & drawers, including inner/outer garments & fasteners.: gets clothes & gets completely dressed without help Toileting - going to the 'toilet room' for urine/bowel elimination & cleaning self/arranging clothes: goes to toilet room, cleans self, arranges clothes without help Transfer: moves in & out of bed and chair without help (may use support object) Continence: controls urination/bowel movements completely by self Feeding: feeds self without help Total Score: 0 Information obtained from: patient Using telephone: independent Traveling: independent Shopping: independent Preparing meals: independent Housework: independent Taking medicine: independent Managing money: independent PHQ-9 Over the last 2 weeks, how often have you been bothered by any of the following problems? 1. Little interest or pleasure in doing things: more than half the days 2. Feeling down, depressed, or hopeless: several days 3. Trouble falling or staying asleep, or sleeping too much: nearly every day 4. Feeling tired or having little energy: nearly every day 5. Poor appetite or overeating: not at all 6. Feeling bad about yourself - or that you are a failure or have let yourself or your family down: not at all 7. Trouble concentrating on things, such as reading the newspaper or watching television: several days 8. Moving or speaking so slowly that other people could have noticed. Or the opposite - being so fidgety or restless that you have been moving around a lot more than usual: not at all 9. Thoughts that you would be better off or of hurting yourself in some way: not at all Total score: 10 84376 - PHQ-9 Billing: Yes Source: Developed by Drs. He Cardozo, Damaris Galindo, Madan Jacome and colleagues, with an educational vonda from [employer]. Review of Systems Const Denies headache(s) Eyes Denies loss of vision ENT Denies vertigo, Denies dizziness, Denies headache(s) and Denies sore throat Card Denies chest pain, Denies leg edema and Denies lightheadedness Resp Denies cough, Denies hemoptysis and Denies wheezing GI Denies abdominal pain, Denies melena, Denies constipation, Denies diarrhea and Denies vomiting Denies dysuria, Denies urinary frequency and Denies urinary urgency Musc Denies arthralgias, Denies joint swelling, Denies numbness and Denies tingling Neuro Denies Abnormal speech present, Denies behavioral changes, Denies vertigo, Denies dizziness, Denies headache(s), Denies loss of vision, Denies memory loss, Denies numbness and Denies tingling Psych Denies anxiety, Denies behavioral changes, Denies depression, Denies memory loss and Denies panic attacks Eder/Lymph Denies easy bleeding and Denies easy bruising Aller/Immun Denies wheezing Physical Exam Vital Signs: Last Vital Signs Temp 97.1 F 12/11/24 16:41 Pulse 72 12/11/24 16:41 BP 198/88 H 12/11/24 16:48 Pulse Ox 98 12/11/24 16:41 Oxygen Delivery Method Room Air 12/11/24 16:41 BMI result Body Mass Index 23.5 Const General: healthy appearing, no acute distress, alert and awake Nutritional Appearance: well nourished Orientation/consciousness: oriented to person, oriented to place and oriented to time HEENT Ears: TM's normal bilaterally General nose exam: Normal nasal mucous membranes and turbinates present Eyes Conjunctivae: conjunctivae normal Sclerae: sclerae normal Pupils: Equal, round and reactive pupils present Neck Neck: Yes no lymphadenopathy and Yes no JVD Thyroid: Thyroid normal Carotids: no bruits Resp Effort & Inspection: normal respiratory effort and not tachypneic Auscultation: no crackles, no rales, no rhonchi and no wheezes Cardio Rate: regular rate Rhythm: regular rhythm Heart sounds: no murmurs and normal S1 and S2 GI Palpation (GI): Soft to palpation, nontender, no hepatomegaly and no splenomegaly Auscultation: normal bowel sounds Skin General skin exam: no rashes or lesions noted and dry skin Neuro General: oriented to person, oriented to place and oriented to time Cranial nerves: Yes Equal, round and reactive pupils present Speech: No Abnormal speech present Gait exam (Neuro): Normal gait present Motor exam (neuro): no tremor noted Extrem Right upper extremity: full ROM Left upper extremity: full ROM Right lower extremity: full ROM; no edema Left lower extremity: full ROM; no edema Psych Mental Status: mental status grossly normal Speech and movement: Normal speech and movement present Affect: normal affect Attitude: cooperative Thought process: Normal thought process present Assessment & Plan Assessment & Plan (1) HTN (hypertension): Code(s): I10 - Essential (primary) hypertension Qualifiers: Hypertension type: primary hypertension Qualified Code(s): I10 - Essential (primary) hypertension Plan: Patient's blood pressure remains elevated. Fortunately he remains asymptomatic at this time though recent hospitalization he presented with shortness of breath due to acute heart failure. He is now on furosemide 40 mg Will increase his carvedilol to 6 mg b.i.d. for better blood pressure control. (2) Diabetes: Code(s): E11.9 - Type 2 diabetes mellitus without complications Qualifiers: Diabetes mellitus complication status: with hyperglycemia Diabetes mellitus senior care insulin use: without senior care use Diabetes mellitus type: type 2 Qualified Code(s): E11.65 - Type 2 diabetes mellitus with hyperglycemia Plan: Patient's most recent A1c found to be 7.0. He does understand he is in a diabetic range. He has been working on low carbohydrate diet. We did discuss starting medication to help him reduce his sugars though at this time would like to hold off and continue working on dietary modifications. Goal A1c is to be below 7 0. (3) PVD (peripheral vascular disease): Code(s): I73.9 - Peripheral vascular disease, unspecified Plan: Patient does have left calf cramping and pain upon 1 block exertion. Will send for ultrasound to evaluate for venous/ arterial disease in the lower extremity. Orders: Orders US venous duplex LE BI 12/11/24 I73.9 - Peripheral vascular disease, unspecified Complete Blood Count no Diff 12/11/24 I10 - Essential (primary) hypertension Comprehensive Soso. Panel Fast 12/11/24 I10 - Essential (primary) hypertension Hemoglobin A1c 12/11/24 E11.9 - Type 2 diabetes mellitus without complications Medications: New carvedilol must administer with a meal/food 6.25 mg PO BID 60 tabs 1RF 30 days I10 - Essential (primary) hypertension Discontinued carvedilol Discontinued Reason: Doctor's Order 3.125 mg See Protocol PO BID 60 tabs 6RF Quality Reporting (2019) Depression/Bipolar (159/160/161/177) PHQ-9: Total score: 10 Coding Level of Care Code Est Pt Level 4 (70454) Diagnoses Primary hypertension I10 Hypertension type: primary hypertension Type 2 diabetes mellitus with hyperglycemia, without long-term current use of insulin E11.65 Diabetes mellitus complication status: with hyperglycemia Diabetes mellitus senior care insulin use: without senior care use Diabetes mellitus type: type 2 PVD (peripheral vascular disease) I73.9 Additional Codes PHQ-9 - 08781 - PHQ-9 Billing: Yes ([id number])
[2024-12-11 16:48] VITALS: BP 198/88
[2024-12-11 16:50] VITALS: BMI 23.5
== END 2024-12-11 17:20 | disposition home or self-care (01) ==
LOC: HO.HMCH 15:40
PROVIDERS: PCP Physician Assistant; Visit Provider Physician Assistant
DX: I10 Essential (primary) hypertension (principal); E11.65 Type 2 diabetes mellitus with hyperglycemia; I73.9 Peripheral vascular disease, unspecified

== ENCOUNTER → 2024-12-11 15:39 | Outpatient (BNVA) | payer MEDICARE, SELFPAY | PROVIDERS: PCP Physician Assistant; Visit Provider Physician Assistant | DX: I10 Essential (primary) hypertension (principal); E11.65 Type 2 diabetes mellitus with hyperglycemia; I73.9 Peripheral vascular disease, unspecified | CPT/HCPCS: 96127; 99212 ==

== ENCOUNTER 2025-01-08 14:03 | Outpatient (AMB) | payer MEDICARE, SELFPAY ==
--- NOTE | 2025-01-08 14:33 | HO.NEPHOV ---
Vital Signs 01/08/25 14:35 Height 5 ft 10 in Weight 164 lb 6 oz BMI 23.6 BP 190/80 H Blood Pressure Location Lt brachial Position Sitting Pulse 59 Pulse Source Pulse Oximeter Pulse Oximetry (%) 99 Oxygen Delivery Method Room Air Intake Visit Reasons: 3MON FOLLOW-UP W/LABS-LVM Wage Conciliator Required: No Accompanied by: Daughter Allergies No Known Allergies Allergy (Verified 01/08/25 14:34) HPI Comments Details: Martin is a 79-year-old man who recently presented to [facility] with complaints of shortness of breath and PND over the last few months. He had not followed with a medical provider for decades prior to 2022. Around that time he developed this feeling of inability to catch his breath and waking up in the middle of night gasping for air. He reports it would come and then go away on its own so he never sought medical assistance. In 2022 he was found to be hypertensive and was started on medications. In the ER, blood pressure was as high as 227/129. He received hydralazine, amlodipine, nitroglycerin, lisinopril, Lasix, hydrochlorothiazide with some relief and blood pressure. He denied chest pain, nausea, vomiting, diarrhea, sick contacts, recent travel. Chest x-ray showed pulmonary vascular congestion with bibasilar interstitial edema and probable minimal bibasilar airspace disease with trace left pleural effusion.He was admitted for further management. Echo showed normal left ventricular systolic function. The calculated ejection fraction is 60%. Doppler did not show any evidence of renal artery stenosis or abnormal waveforms bilaterally . He is seen in follow up [facility] Medical History HTN (hypertension) Acute respiratory disease Elevated PSA Cataract Surgical History History of dental surgery History of vasectomy Social History Household Members: None Housing: House Do you presently have visiting nurse or other home services: No Alcohol intake: never Patient Tobacco Use Status: Former Tobacco user (09/14/24) Tobacco use type: Cigarette Cigarettes Per Day: 10 Years Smoked: 40 plus e-Cigarette/Vaping Use: Never Used Second Hand Smoke Exposure: Yes service: No Current occupational status: retired Current occupation: [employer] Cognitive needs: Yes (Cane) Hearing needs: No Vision needs: Yes (glasses) Review of Systems Const All systems reviewed & are unremarkable except as noted in HPI and below Physical Exam Vital Signs: Last Vital Signs Pulse 59 01/08/25 14:35 BP 190/80 H 01/08/25 14:35 Pulse Ox 99 01/08/25 14:35 Oxygen Delivery Method Room Air 01/08/25 14:35 BMI result Body Mass Index 23.6 Const General: comfortable and no acute distress Orientation/consciousness: patient oriented x3 HEENT Head: Yes normocephalic Mouth: Normal oral and palatal mucosa present Eyes EOM: EOMs intact bilaterally Neck Neck: Yes supple Resp Auscultation: clear to auscultation bilaterally Cardio Jugular venous distension: no JVD Rate: regular rate GI Palpation (GI): Soft to palpation Auscultation: normal bowel sounds General: Yes no CVA tenderness Back/Spine/Pelvis Back: no CVA tenderness Skin General skin exam: no rashes or lesions noted Neuro General: patient oriented x3 and moves all extremities Extrem General: Yes no pedal edema Results Reviewed Nephrology Results: Sodium, (135-145) 139 mmol/L 12/09/24 Potassium, (3.3-5.1) 3.7 mmol/L 12/09/24 Chloride, (96-108) 103 mmol/L 12/09/24 Carbon Dioxide, (22-29) 26 mmol/L 12/09/24 BUN, (9-16) 17 mg/dL H 12/09/24 Creatinine, (0.5-1.4) 1.03 mg/dL 12/09/24 Calcium, (8.4-10.2) 9.4 mg/dL 09/25/24 Urine Protein, (Neg-Trace) Negative mg/dL 09/20/24 Urine Creatinine 95.58 mg/dL 12/09/24 Protein/Creatinin Ratio, (<0.2) 0.18 12/09/24 Renal US 09/16/24 Assessment & Plan Assessment & Plan (1) HTN (hypertension): Code(s): I10 - Essential (primary) hypertension Category: Medical Qualifiers: Hypertension type: primary hypertension Qualified Code(s): I10 - Essential (primary) hypertension (2) CKD stage 3a, GFR 45-59 ml/min: Code(s): N18.31 - Chronic kidney disease, stage 3a Category: Medical Plan Mild CKD in a setting of longstanding hypertension. No KYLER by Doppler;Low sodium diet C/W Carvedilol 6.25 mg PO bid; On ACEI D/Axel Amlodipine and started Nifedipine 30 mg daily May be able to cut back diuretics with time No NSAID's and good hydration; FU in 4 months Medications: New nifedipine ER 30 mg PO DAILY 30 tabs 6RF Discontinued amlodipine Discontinued Reason: Doctor's Order 10 mg See Protocol PO DAILY 90 tabs 1RF I10 - Essential (primary) hypertension Coding Level of Care Code Est Pt Level 4 (45720) Diagnoses Primary hypertension I10 Hypertension type: primary hypertension CKD stage 3a, GFR 45-59 ml/min N18.31
[2025-01-08 14:35] VITALS: BP 190/80; PULSE 59; O2SAT 99; BMI 23.6
== END 2025-01-08 15:00 | disposition home or self-care (01) ==
LOC: HO.HKA 14:04
PROVIDERS: PCP Physician Assistant; Visit Provider Internal Medicine Nephrology
DX: I10 Essential (primary) hypertension (principal); N18.31 Chronic kidney disease, stage 3a
CPT/HCPCS: 99214

== ENCOUNTER → 2025-01-08 14:03 | Outpatient (BNVA) | payer MEDICARE, SELFPAY | PROVIDERS: PCP Physician Assistant; Visit Provider Internal Medicine Nephrology | DX: I12.9 Hypertensive chronic kidney disease with stage 1 through stage 4 chronic kidney disease, or unspecified chronic kidney disease (principal); N18.31 Chronic kidney disease, stage 3a | CPT/HCPCS: 99212 ==

== ENCOUNTER 2025-01-28 12:43 | Outpatient (REF) | payer MEDICARE, SELFPAY ==
--- NOTE | ~2025-01-28 | US_ITS ---
EXAMINATION: COLOR-FLOW DUPLEX IMAGING OF THE BILATERAL LOWER EXTREMITY ARTERIAL SYSTEM. CLINICAL INFORMATION: Peripheral vascular disease, unspecified. Longtime smoker, pain, cramping upon walking. Assess for any critical stenoses. FINDINGS: Atheromatous Plaque: Moderate diffuse atheromatous plaque identified. Cardiac arrhythmia noted. RIGHT FEMORAL RUNOFF VELOCITIES: The right common femoral artery measures 75 cm/s and is biphasic. (This may indicate inflow disease). The right profunda femoral artery is 113 cm/s and is biphasic. The right proximal superficial femoral artery measures 60 cm/s and biphasic. The right mid superficial femoral artery is 291 cm/s and monophasic. (This indicates a likely moderate stenosis). The right distal right superficial femoral artery measures 30 cm/s and is monophasic. The proximal right popliteal velocity measures 123 cm/s and is monophasic. There is mural thrombus/thrombotic plaque causing near occlusion of the mid and distal right popliteal artery. The right posterior tibial artery velocity measures 36 cm/s and is monophasic. The right dorsalis pedis artery measures 16.5 cm/s with reversal of flow, and is monophasic. LEFT FEMORAL RUNOFF VELOCITIES: The left common femoral artery measures 21.6 cm/s and monophasic. The left profunda femoral artery is 30.6 cm/s and is monophasic. The left proximal superficial femoral artery measures 44.3 cm/s and monophasic. The left mid superficial femoral artery is 66 cm/s and monophasic. The left distal right superficial femoral artery measures 16.3 cm/s and is monophasic. The left popliteal velocity measures 31.7 cm/s and is monophasic. The left posterior tibial artery velocity measures 23.4 cm/s and is monophasic. The left dorsalis pedis artery measures 7 cm/s and is monophasic. US/US arterial duplex LE BI IMPRESSION: 1. Atheromatous plaque present bilaterally, with evidence evidence for moderate to severe peripheral vascular disease in the right greater than left lower extremities. 2. Age indeterminant mural thrombus/thrombotic plaque causing severe stenosis of the mid and distal RIGHT popliteal artery. Cannot exclude acute on chronic thrombus. 3. Area of reversed flow in the right dorsalis pedis artery indicating a significant stenoses within the RIGHT calf arteries. 4. There is a moderate stenosis of the RIGHT mid superficial femoral artery. 5. Abnormal waveforms in the BILATERAL common femoral artery suggests inflow/more proximal disease. Electronically signed by: Scottie Magaña MD 01/28/2025 02:19 PM EDT RP
== END 2025-01-28 12:44 | disposition home or self-care (01) ==
LOC: HO.US 12:43
PROVIDERS: PCP Physician Assistant; Visit Provider Physician Assistant
DX: I73.9 Peripheral vascular disease, unspecified (principal)
CPT/HCPCS: 93925

== ENCOUNTER → 2025-01-28 12:45 | Outpatient (BNV) | payer MEDICARE, SELFPAY | PROVIDERS: PCP Physician Assistant; Visit Provider Radiology Diagnostic Radiology | DX: I73.9 Peripheral vascular disease, unspecified (principal) | CPT/HCPCS: 93925 ==

== ENCOUNTER 2025-02-12 13:00 | Outpatient (AMB) | payer MEDICARE, SELFPAY ==
--- NOTE | 2025-02-12 13:04 | MHC.PC.OV ---
Vital Signs 02/12/25 13:05 Height 5 ft 10 in Weight 165 lb 6 oz BMI 23.7 BP 170/90 H Blood Pressure Location Lt brachial Position Sitting Pulse 80 Pulse Source Pulse Oximeter Temp 97.1 F Temp Source Temporal Artery Scan Pulse Oximetry (%) 97 Oxygen Delivery Method Room Air Intake Visit Reasons: FOLLOW UP 8 WEEKS Intake Note: Patient is here to follow up on DM, HTN, PVD. 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 Accompanied by: Daughter Allergies No Known Allergies Allergy (Verified 02/12/25 13:21) Medication List - Last Reconciled 02/12/25 by Guillermo Nicole PA-C acetaminophen 500 mg PO Q6H PRN alcohol swabs 1 pad topical QIDACHS blood sugar diagnostic (FreeStyle Lite Strips) Test twice a day as needed blood-glucose meter (FreeStyle Lite Meter kit) As Directed carvedilol 6.25 mg PO BID 30 days clopidogrel (Plavix) 75 mg PO DAILY dextrin (Clear Fiber) 2 tsp PO DAILY furosemide 40 mg See Protocol PO DAILY lancets (FreeStyle Lancets) Test twice a day as needed lisinopril 40 mg See Protocol PO DAILY nifedipine ER 30 mg PO DAILY pen needle, diabetic Use four times a day or as directed. Tobacco use date assessed: 02/12/25 Fall risk assessment: No Falls in past year Last assessed Fall Risk: 02/12/25 Dental Screening Dental Screen Date: 09/20/24 HPI FOLLOW UP 8 WEEKS HPI Details Patient is a 79-year-old male here today for follow-up visit. Patient has a past medical history significant for type 2 diabetes, uncontrolled hypertension, CKD and Congestive heart failure Hypertension: He has establish care with a railcar mechanic due to his uncontrolled blood pressure. Recent discontinuation of his amlodipine and was started on nifedipine 30 mg but this has resulted in elevated blood pressure readings, with morning averages of 154/69 mmHg and evening averages of 163/74 mmHg. The patient reports frustration with the lack of improvement and has been monitoring his blood pressure twice daily. Current blood pressure med regime-- > lisinopril 40, carvedilol 3 mg b.i.d., nifedipine 30 mg, furosemide 40 at this time. Today's blood pressure in office remains elevated. PLAN: Will increase is nifedipine to 60 mg for better blood pressure control Type 2 diabetes: Today's A1c is 7.4 from 7.0. He has been advised to monitor his blood sugar at home, but he has stopped due to the inconvenience of finger pricking and issues with obtaining supplies. Dietary modifications have been discussed, focusing on reducing carbohydrate intake. -->Discuss starting metformin though he would like to hold off on antihyperglycemic medication for now and continue working on dietary modification. [facility] Medical History HTN (hypertension) Acute respiratory disease Elevated PSA Cataract Surgical History History of dental surgery History of vasectomy Social History Household Members: None Housing: House Do you presently have visiting nurse or other home services: No Alcohol intake: never Patient Tobacco Use Status: Former Tobacco user (09/14/24) Tobacco use type: Cigarette Cigarettes Per Day: 10 Years Smoked: 40 plus e-Cigarette/Vaping Use: Never Used Second Hand Smoke Exposure: Yes service: No Current occupational status: retired Current occupation: [employer] Cognitive needs: Yes (Cane) Hearing needs: No Vision needs: Yes (glasses) Questionnaire PHQ-9 Over the last 2 weeks, how often have you been bothered by any of the following problems? 1. Little interest or pleasure in doing things: several days 2. Feeling down, depressed, or hopeless: several days 3. Trouble falling or staying asleep, or sleeping too much: several days 4. Feeling tired or having little energy: several days 5. Poor appetite or overeating: not at all 6. Feeling bad about yourself - or that you are a failure or have let yourself or your family down: not at all 7. Trouble concentrating on things, such as reading the newspaper or watching television: not at all 8. Moving or speaking so slowly that other people could have noticed. Or the opposite - being so fidgety or restless that you have been moving around a lot more than usual: not at all 9. Thoughts that you would be better off or of hurting yourself in some way: not at all Total score: 4 Depression Screening Interpretation: Positive Depression Screening Follow-up: Existing condition and Declines treatment Depression Screening Done: Yes 03681 - PHQ-9 Billing: Yes Source: Developed by Drs. He Cardozo, Damaris Galindo, Madan Jacome and colleagues, with an educational vonda from [employer]. Thrive Questionnaire Date Thrive assessed: 09/15/24 I am a: Patient What is your living situation today?: I have a steady place to live Within the past 12 months, did the food you bought not last and you didn't have the money to get more?: Never true Within the past 12 months, did you worry whether your food would run out before you got money to buy more?: Never true Do you have trouble paying for medicines?: No Do you have trouble getting transportation to medical appointments?: No Do you have trouble paying your heating and electricity bill?: No Do you have trouble taking care of your child, family member or friend?: No Do you have trouble with day-to-day activities such as bathing, preparing meals, shopping, managing finances, etc.?: No Are you currently unemployed and looking for a job?: No Are you interested in more education?: No Please select the resources that you would like help with: None Currently or been in a relationship where the following occur: No concerns reported THRIVE Score: 0 AUDIT C Alcohol Use Questionnaire (AUDIT-C) 1. How often do you have a drink containing alcohol?: Monthly or less 2. How many drinks containing alcohol do you have on a typical day when you are drinking?: 1 or 2 3. How often do you have six or more drinks on one occasion?: Never Total Score: 1 ROSANA-7 AMB Questionnaire ROSANA-7 Date ROSANA - 7 assessed: 02/12/25 Feeling nervous, anxious, or on edge: 1 = Several days Not being able to stop or control worryin = Not at all Worrying too much about different things: 0 = Not at all Trouble relaxin = Several days Being so restless that it is hard to sit still: 0 = Not at all Becoming easily annoyed or irritable: 1 = Several days Feeling afraid as if something awful might happen: 0 = Not at all Total ROSANA-7 score (0-4 normal; 5-9 mild; 10-14 moderate; 15-21 severe): 3 Source: Developed by Drs. He Cardozo, Damaris Galindo, Madan Jacome and colleagues, with an educational vonad from [employer]. ROSANA-7 Assessment Billing ROSANA-7 Assessment Tool: ROSANA-7 Assessment 12640 Review of Systems Const Denies headache(s) Eyes Denies loss of vision ENT Denies vertigo, Denies dizziness, Denies headache(s) and Denies sore throat Card Denies chest pain, Denies leg edema and Denies lightheadedness Resp Denies cough, Denies hemoptysis and Denies wheezing GI Denies abdominal pain, Denies melena, Denies constipation, Denies diarrhea and Denies vomiting Denies dysuria, Denies urinary frequency and Denies urinary urgency Musc Denies arthralgias, Denies joint swelling, Denies numbness and Denies tingling Neuro Denies Abnormal speech present, Denies behavioral changes, Denies vertigo, Denies dizziness, Denies headache(s), Denies loss of vision, Denies memory loss, Denies numbness and Denies tingling Psych Denies anxiety, Denies behavioral changes, Denies depression, Denies memory loss and Denies panic attacks Eder/Lymph Denies easy bleeding and Denies easy bruising Aller/Immun Denies wheezing Physical exam (Primary Care) Vital Signs: Last Vital Signs Temp 97.1 F 02/12/25 13:05 Pulse 80 02/12/25 13:05 BP 170/90 H 02/12/25 13:05 Pulse Ox 97 02/12/25 13:05 Oxygen Delivery Method Room Air 02/12/25 13:05 BMI result Body Mass Index 23.7 Tobacco/Smoking Status: Tobacco use Status Tobacco use date assessed 02/12/25 02/12/25 13:20 Patient Tobacco Use Status Former Tobacco user (09/14/24 02/12/25 13:20 ) Tobacco use type Cigarette 02/12/25 13:20 e-Cigarette/Vaping Use Never Used 02/12/25 13:20 PHQ-9: PHQ-9 Score PHQ-9: Total score 4 02/12/25 13:22 Depression Screening Interpretation: Positive Depression Screening Follow-up: Existing condition and Declines treatment Thrive Assessment: Date of Thrive Assessment Date Thrive assessed 02/23/25 07/23/25 13:20 Currently or been in a relationship where the following occur: No concerns reported Const General: healthy appearing, no acute distress, alert and awake Nutritional Appearance: well nourished Orientation/consciousness: oriented to person, oriented to place and oriented to time HENMT Ears: TM's normal bilaterally General nose exam: Normal nasal mucous membranes and turbinates present Eyes Conjunctivae: conjunctivae normal Sclerae: sclerae normal Pupils: Equal, round and reactive pupils present Neck Neck: Yes no lymphadenopathy and Yes no JVD Thyroid: Thyroid normal Carotids: no bruits Resp Effort & Inspection: normal respiratory effort and not tachypneic Auscultation: no crackles, no rales, no rhonchi and no wheezes Cardio Rate: regular rate Rhythm: regular rhythm Heart sounds: no murmurs and normal S1 and S2 GI Palpation (GI): Soft to palpation, nontender, no hepatomegaly and no splenomegaly Auscultation: normal bowel sounds Skin General skin exam: no rashes or lesions noted and dry skin Neuro General: oriented to person, oriented to place and oriented to time Cranial nerves: Yes Equal, round and reactive pupils present Speech: No Abnormal speech present Gait exam (Neuro): Normal gait present Motor exam (neuro): no tremor noted Extrem Right upper extremity: full ROM Left upper extremity: full ROM Right lower extremity: full ROM; no edema Left lower extremity: full ROM; no edema Psych Mental Status: mental status grossly normal Speech and movement: Normal speech and movement present Affect: normal affect Attitude: cooperative Thought process: Normal thought process present Results AMB Hemoglobin A1c AMB Hemoglobin A1c 7.4 % Last Edit by ROLY Vail on 02/12/25 13:26 Results Reviewed Results Reviewed: Laboratory Last Values Hgb A1c (Clinic) 7.4 % (4.0-6.0) H 02/12/25 13:04 Coding Level of Care Code Est Pt Level 4 (60761) Diagnoses Primary hypertension I10 Hypertension type: primary hypertension Type 2 diabetes mellitus with hyperglycemia, without long-term current use of insulin E11.65 Diabetes mellitus complication status: with hyperglycemia Diabetes mellitus mcfp insulin use: without mcfp use Diabetes mellitus type: type 2 Additional Codes PHQ-9 - 60677 - PHQ-9 Billing: Yes ([id number]) ROSANA-7 Assessment Billing - ROSANA-7 Assessment Tool: ROSANA-7 Assessment 88073 ([id number]) Assessment & Plan Assessment & Plan (1) HTN (hypertension): Code(s): I10 - Essential (primary) hypertension Category: Medical Qualifiers: Hypertension type: primary hypertension Qualified Code(s): I10 - Essential (primary) hypertension Plan: Patient's blood pressure remains elevated. Fortunately he remains asymptomatic at this time though recent hospitalization he presented with shortness of breath due to acute heart failure. He has followed up with Nephrology whom transitioned him to nifedipine 30 mg extended release. Patient's blood pressure averages of 154/69 mmHg and evening averages of 163/74 mmHg. Options discussed include returning to amlodipine or increasing the dose of nifedipine to 60 mg. The addition of hydralazine was also considered as a third or fourth-line agent. (2) Diabetes: Code(s): E11.9 - Type 2 diabetes mellitus without complications Category: Medical Qualifiers: Diabetes mellitus complication status: with hyperglycemia Diabetes mellitus mcfp insulin use: without continuous churn buttermaker use Diabetes mellitus type: type 2 Qualified Code(s): E11.65 - Type 2 diabetes mellitus with hyperglycemia Plan: The patient's A1c has increased to 7.4%, indicating suboptimal control of blood glucose levels. Dietary modifications focusing on reducing carbohydrate intake were discussed, and the patient was advised to monitor blood sugar at home. The patient declined additional medication for diabetes management at this time. Goal A1c is to be below 7 0. Orders: Orders AMB Hemoglobin A1c Today E11.65 - Type 2 diabetes mellitus with hyperglycemia Medications: New nifedipine ER 60 mg PO DAILY 30 tabs 3RF 30 days I10 - Essential (primary) hypertension Refilled carvedilol must administer with a meal/food 6.25 mg PO BID 60 tabs 3RF 30 days I10 - Essential (primary) hypertension On Hold nifedipine ER Hold Comment: Doctor's Order 30 mg PO DAILY 30 tabs 6RF
[2025-02-12 13:05] VITALS: BP 170/90; PULSE 80; TEMP 36.2; O2SAT 97; BMI 23.7
== END 2025-02-12 13:56 | disposition home or self-care (01) ==
LOC: HO.HMCH 13:01
PROVIDERS: PCP Physician Assistant; Visit Provider Physician Assistant
DX: I10 Essential (primary) hypertension (principal); E11.65 Type 2 diabetes mellitus with hyperglycemia

== ENCOUNTER → 2025-02-12 13:00 | Outpatient (BNVA) | payer MEDICARE, SELFPAY | PROVIDERS: PCP Physician Assistant; Visit Provider Physician Assistant | DX: I10 Essential (primary) hypertension (principal); E11.65 Type 2 diabetes mellitus with hyperglycemia | CPT/HCPCS: 83036; 96127; 99212 ==

== ENCOUNTER 2025-02-18 11:12 | Outpatient (AMB) | payer MEDICARE, SELFPAY ==
[2025-02-18 11:14] VITALS: BMI 23.7
--- NOTE | 2025-02-18 11:14 | A.OFFVIS_ITS ---
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 pt states Left LE pain for a few years. Pt states that Left LE cramping w/ minimal ambulation, causing pain even when walking around the house. 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 The patient reports a history of pain in the left calf that began a couple of years ago while shoveling snow. The pain occurs after walking about half a block and has been consistent over time. He also experiences pain when climbing stairs, which he noticed after his 's passing when he began doing more grocery shopping. The patient has a history of Type 2 Diabetes Mellitus, diagnosed by his kidney doctor, Dr. Parada. He describes his diabetes as not serious for his age. The patient smokes approximately six to seven cigarettes a day, stretching a pack over three days. He is a diabetic. He now presents for vascular evaluation. [facility] Medical History HTN (hypertension) Acute respiratory disease Elevated PSA Cataract Surgical History History of dental surgery History of vasectomy Social History Household Members: None Housing: House Do you presently have visiting nurse or other home services: No Alcohol intake: never Patient Tobacco Use Status: Former Tobacco user (09/14/24) Tobacco use type: Cigarette Cigarettes Per Day: 10 Years Smoked: 40 plus e-Cigarette/Vaping Use: Never Used Second Hand Smoke Exposure: Yes service: No Current occupational status: retired Current occupation: [employer] Cognitive needs: Yes (Cane) Hearing needs: No Vision needs: Yes (glasses) Review of Systems Const All systems reviewed & are unremarkable except as noted in HPI and below Reports no additional complaints ENT Reports Normal hearing present Card Denies chest pain, Denies chest pain at rest, Denies chest pain with activity and Denies pedal edema Resp Denies cough GI Denies abdominal pain Musc Denies abnormal gait, Denies muscle cramps and Denies radiating pain into limb Skin/Breast Denies skin ulcer and Denies wounds Neuro Reports Normal hearing present and Denies abnormal gait Psych Reports no additional complaints Physical Exam Vital Signs: BMI result Body Mass Index 23.7 Const General: cooperative, healthy appearing and comfortable Orientation/consciousness: oriented to person, oriented to place and oriented to time HEENT Head: Yes normal to inspection Neck Neck: Yes normal visual inspection Carotids: no bruits Chest Chest palpation & inspection: normal inspection of the chest Resp Effort & Inspection: normal respiratory effort and able to speak in complete sentences Auscultation: clear to auscultation bilaterally, no crackles, no rales, no rhonchi and no wheezes Cardio Other: Bilateral DP signals Rate: regular rate Rhythm: regular rhythm Heart sounds: S1 normal heart sound present and S2 normal heart sound present Bruits: no carotid bruits Peripheral pulses: Peripheral pulses 2+ throughout GI Inspection: Yes normal to inspection Skin Wounds: no wounds Hair: normal Neuro General: oriented to person, oriented to place and oriented to time Cranial nerves: Yes CN's II-XII intact bilaterally and Yes Normal hearing present Cognition (Neuro): normal cognition Motor exam (neuro): 5/5 motor strength present throughout Extrem Other: venous exam: No significant superficial varicosities or spider telangiectasias, minimal edema General: No clubbing, No cyanosis and No edema Psych Appearance: grossly normal Mental Status: mental status grossly normal Speech and movement: Normal speech and movement present Results Reviewed Results Reviewed: Noninvasive arterial testing dated 01/28/2025 concerning for bilateral SFA disease. In addition there is concern for inflow disease. Written report and images were reviewed. I disagree with the right SFA finding and I do believe most of it is chronic in nature. Assessment & Plan Assessment & Plan (1) PVD (peripheral vascular disease): Code(s): I73.9 - Peripheral vascular disease, unspecified Category: Medical Plan: In short patient has claudication. I did review the pathophysiology of peripheral vascular disease with the patient. In addition we did discuss routine conservative measures including a healthy diet and the importance of exercise and ambulation. We did discuss risk factor modification. I have taken the liberty of ordering a CT angiogram with runoff to better elucidate the location of disease as there is concern of inflow disease. He will follow up with us after testing. Thank you for allowing us to participate in this patient's care. If there are any questions or concerns please do not hesitate to contact us. Plan Patient was informed and verbally consented to the use of an ambient scribe for clinic note documentation during this visit. Orders: Orders Creatinine Today I73.9 - Peripheral vascular disease, unspecified CT angio abd aorta runoff Today I73.9 - Peripheral vascular disease, unspecified Blood Urea Nitrogen Today I73.9 - Peripheral vascular disease, unspecified Patient Instructions: - Undergo blood work to check kidney function before the CT scan. - Attend the scheduled CT scan appointment to assess arterial blockages. - Follow up with the vascular surgeon after the CT scan for further evaluation and management. Coding Level of Care Code New Pt Level 4 (43243) Complex EM visit Add On G2211 Diagnoses PVD (peripheral vascular disease) I73.9
== END 2025-02-18 11:38 | disposition home or self-care (01) ==
LOC: HO.HVS 11:13
PROVIDERS: PCP Physician Assistant; Visit Provider Surgery Vascular Surgery
DX: I73.9 Peripheral vascular disease, unspecified (principal)
CPT/HCPCS: 99204; G2211

== ENCOUNTER → 2025-02-18 11:12 | Outpatient (BNVA) | payer MEDICARE, SELFPAY | PROVIDERS: PCP Physician Assistant; Visit Provider Surgery Vascular Surgery | DX: I73.9 Peripheral vascular disease, unspecified (principal) | CPT/HCPCS: 99202 ==

== ENCOUNTER 2025-03-26 09:11 | Outpatient (REF) | payer MEDICARE, SELFPAY ==
--- NOTE | ~2025-03-26 | CT_ITS ---
CLINICAL HISTORY: I73.9 - Peripheral vascular disease, unspecified CT angiography abdomen and pelvis with bilateral lower extremity runoff using IV contrast. 3-D post processing. Comparison: None provided. Findings: Incomplete visualization of the suprarenal abdominal aorta. There are severe atherosclerotic changes of the aorta including both calcified and soft plaque. There are multiple small foci of ulcerative plaque formation. There is no aneurysm or dissection. There is moderate stenosis of the celiac artery approximately 7 mm from its origin. There is mild narrowing of the superior mesenteric artery beginning approximately 1.5 cm from its origin. There is occlusion of the proximal 2.3 cm of the inferior mesenteric artery. There is no significant stenosis of the renal arteries. Right lower extremity arteries: Mild narrowing of the right common iliac artery. Moderate stenosis of the proximal portion of the right external iliac artery with areas of milder narrowing more distally. No significant stenosis of the right common femoral artery. Moderate stenosis of the distal aspect of the right superficial femoral artery with mild multifocal narrowing proximal to this. Occlusion of the distal aspect of the popliteal artery with recanalization with limited flow at the level of the tibioperoneal trunk. Limited flow within the posterior tibial and peroneal arteries. Limited flow within the right anterior tibial artery origin with multifocal absent flow more distally. Left lower extremity arteries: Predominantly soft plaque and/or mural thrombus within the left common iliac artery with severe stenosis. Occlusion of the left external iliac artery beginning at its origin and extending throughout the majority of its length with recanalization at its distal aspect. Occlusion of portions of the left internal iliac artery. The left common femoral artery is patent with mild narrowing. There is [id number] multifocal narrowing of the left superficial femoral artery. Moderate stenosis of the left popliteal artery. Limited flow within the left posterior tibial and peroneal arteries and multifocal occlusion of the left anterior tibial artery. Incomplete visualization of the liver, spleen, pancreas and adrenal glands. No significant abnormality of the visualized liver, spleen or pancreas. There is a 3 cm left adrenal nodule with density compatible with an adenoma. The right adrenal gland is unremarkable. The bilateral kidneys are unremarkable. There is focal thickening of the lateral wall of the fundus of the gallbladder. There are probable tiny gallstones. There is no biliary dilatation. There is moderate fecal retention within the colon. There is no bowel edema or dilatation. The prostate gland is markedly enlarged and is heterogeneous and has a lobulated contour. The prostate gland has mass effect on the urinary bladder. The appendix is not definitively seen. There are no secondary findings to suggest appendicitis. There are small bilateral hydroceles. There are surgical clips associated with the bilateral spermatic cords. Bilateral lower extremity soft tissues are unremarkable. The bones are intact. IMPRESSION: 1. There are severe atherosclerotic changes described in detail above. Limited arterial flow to the bilateral lower extremities. Occlusion of portions of the right popliteal and anterior tibial arteries and the left external iliac and left anterior tibial arteries. Significant stenosis of multiple additional major arteries as above. 2. There is focal thickening of a portion of the gallbladder wall. This could be secondary to adenomyomatosis or sludge. Neoplasm not excluded. Recommend further evaluation with ultrasound. 3. Markedly enlarged prostate. This document has been electronically signed by: Christi Forde MD on 03/28/2025 14:37:13
[2025-03-26 10:49] LABS: Blood Urea Nitrogen 21 mg/dL (9-16); Estimated Glomerular Filt Rate 54
[2025-03-26] MEDS: iohexoL 350 MG/ML 100 ML INFUS..BTL IV (18:02)
== END 2025-03-26 09:12 | disposition home or self-care (01) ==
LOC: HO.CT 09:11
PROVIDERS: PCP Physician Assistant; Visit Provider Surgery Vascular Surgery
DX: I73.9 Peripheral vascular disease, unspecified (principal)
CPT/HCPCS: 36415; 75635; 82565; 84520; Q9967

== ENCOUNTER → 2025-03-26 15:16 | Outpatient (BNV) | payer MEDICARE, SELFPAY | PROVIDERS: PCP Physician Assistant; Visit Provider Radiology Diagnostic Radiology | DX: I77.1 Stricture of artery (principal) | CPT/HCPCS: 75635 ==

== ENCOUNTER 2025-04-16 12:49 | Outpatient (REF) | payer MEDICARE, SELFPAY ==
[2025-04-16 14:52] LABS: Hematocrit 38.3 % (42.0-52.0); Hemoglobin 12.9 g/dl (14.0-18.0); Mean Corpuscular HGB Conc 33.7 g/dl (31.0-36.0); Mean Corpuscular Hemoglobin 31.2 pg (27.0-33.0); Mean Corpuscular Volume 92.5 fL (80.0-98.0); NRBC Abs Auto 0.000 X10*3/uL (0.0-0.012); NRBC Pct Auto 0.0 /100WBC (0.0-0.2); Platelet Count 251 X10*3/uL (160-400); Red Blood Count 4.14 X10*6/uL (4.60-5.80); White Blood Count 10.6 X10*3/uL (4.8-10.8)
[2025-04-16 15:43] LABS: Alanine Aminotransferase 13 U/L (0-40); Albumin Level 4.4 g/dL (3.5-5.0); Alkaline Phosphatase 91 U/L (39-117); Anion Gap 11 (12-20); Aspartate Amino Transferase 21 U/L (5-37); Blood Urea Nitrogen 21 mg/dL (9-16); Calcium 9.3 mg/dL (8.4-10.2); Carbon Dioxide 28 mmol/L (22-29); Chloride 106 mmol/L (96-108); Estimated Glomerular Filt Rate > 60; Potassium 3.6 mmol/L (3.3-5.1); Sodium 141 mmol/L (135-145); Total Protein 7.7 g/dL (6.5-8.0)
== END 2025-04-16 12:50 | disposition home or self-care (01) ==
LOC: HO.LAB 12:49
PROVIDERS: PCP Physician Assistant; Visit Provider Physician Assistant
DX: I73.9 Peripheral vascular disease, unspecified (principal); I10 Essential (primary) hypertension; L60.0 Ingrowing nail
CPT/HCPCS: 36415; 80053; 85027; 99212

== ENCOUNTER 2025-04-16 12:49 | Outpatient (AMB) | payer MEDICARE, SELFPAY ==
--- NOTE | 2025-04-16 12:52 | A.OFFPC_ITS ---
Vital Signs 04/16/25 12:53 Height 5 ft 10 in Weight 168 lb 4 oz BMI 24.1 BP 160/90 H Blood Pressure Location Lt brachial Position Sitting Pulse 64 Pulse Source Pulse Oximeter Temp 96.9 F Temp Source Temporal Artery Scan Pulse Oximetry (%) 100 Oxygen Delivery Method Room Air Intake Visit Reasons: 8 week f/u Intake Note: Patient is here to follow up on CKD, HTN, PVD, DM. Jute Bag Sewer Required: No Lead Customer Service Representative: Present Accompanied by: Daughter Allergies No Known Allergies Allergy (Verified 04/16/25 13:08) Medication List - Last Reconciled 04/16/25 by Guillermo Nicole PA-C acetaminophen 500 mg PO Q6H PRN alcohol swabs 1 pad topical QIDACHS blood sugar diagnostic (FreeStyle Lite Strips) Test twice a day as needed blood-glucose meter (FreeStyle Lite Meter kit) As Directed carvedilol 6.25 mg PO BID 30 days clopidogrel (Plavix) 75 mg PO DAILY dextrin (Clear Fiber) 2 tsp PO DAILY furosemide 40 mg See Protocol PO DAILY lancets (FreeStyle Lancets) Test twice a day as needed lisinopril 40 mg See Protocol PO DAILY nifedipine ER 60 mg PO DAILY 30 days pen needle, diabetic Use four times a day or as directed. Tobacco use date assessed: 04/16/25 Fall risk assessment: No Falls in past year Last assessed Fall Risk: 04/16/25 Dental Screening Dental Screen Date: 09/20/24 HPI 8 week f/u HPI Details Patient is a 79-year-old male here today for follow-up visit. Patient has a past medical history significant for type 2 diabetes, uncontrolled hypertension, CKD and Congestive heart failure.. .. Concern--> The patient reports an ingrown toenail with a fungal infection, causing intermittent pain. 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 Hypertension: Continues to follow Nephrology Current blood pressure med regime-- > lisinopril 40, carvedilol 3 mg b.i.d., nifedipine 60 mg, furosemide 40 at this time. Today's blood pressure in office remains elevated. He reports at home he does get systolic readings 120 to 130s. Fortunately he remains asymptomatic without any chest discomfort, blurry vision headaches or shortness of breath. PLAN: Will increase is nifedipine to 90 mg (60 mg tab 1 1/2 tabs) for better blood pressure control .. Left adrenal adenoma: Noted have a left adrenal adenoma most recent CT of abdomen . Will follow up with Nephrology Peripheral ARTERIAL DISEASE: CT angiogram showing--> There are severe atherosclerotic changes described in detail above. Limited arterial flow to the bilateral lower extremities. Occlusion of portions of the right popliteal and anterior tibial arteries and the left external iliac and left anterior tibial arteries. Significant stenosis of multiple additional major arteries as above. -- >The patient has peripheral artery di sease, attributed to smoking, resulting in atherosclerotic changes in the legs. He experiences leg cramping and burning, with potential stent placement considered to improve circulation. Plavix is continued to facilitate blood flow through narrowed arteries. PLAN: Will start statin therapy due to his peripheral artery disease and his continued smoking to help reduce his CV risk. Of note previous LDL was 77 in September of 2024 Laboratory Tests 11/08/22 12/14/22 09/15/24 09:38 10:21 05:27 RBC 5.01 Hgb 15.3 Creatinine Fasting Glucose 123 H Random Glucose Hemoglobin A1c % Cholesterol 215 LDL Cholesterol, C alc 148 PSA Screen 7.30 H PSA Ultra-Sensitiv e 6.18 09/25/24 12/09/24 03/26/25 09:01 10:43 09:26 RBC Hgb Creatinine 1.03 1.28 Fasting Glucose Random Glucose 158 H Hemoglobin A1c % 7.0 H Cholesterol 141 LDL Cholesterol, C alc 77 PSA Screen PSA Ultra-Sensitiv e [facility] Medical History HTN (hypertension) Acute respiratory disease Elevated PSA Cataract Surgical History History of dental surgery History of vasectomy Social History Household Members: None Housing: House Do you presently have visiting nurse or other home services: No Alcohol intake: never Patient Tobacco Use Status: Former Tobacco user (09/14/24) Tobacco use type: Cigarette Cigarettes Per Day: 10 Years Smoked: 40 plus e-Cigarette/Vaping Use: Never Used Second Hand Smoke Exposure: Yes service: No Current occupational status: retired Current occupation: [employer] Cognitive needs: Yes (Cane) Hearing needs: No Vision needs: Yes (glasses) Questionnaire Thrive Questionnaire Date Thrive assessed: 02/12/25 I am a: Patient What is your living situation today?: I have a steady place to live Within the past 12 months, did the food you bought not last and you didn't have the money to get more?: Never true Within the past 12 months, did you worry whether your food would run out before you got money to buy more?: Never true Do you have trouble paying for medicines?: No Do you have trouble getting transportation to medical appointments?: No Do you have trouble paying your heating and electricity bill?: No Do you have trouble taking care of your child, family member or friend?: No Do you have trouble with day-to-day activities such as bathing, preparing meals, shopping, managing finances, etc.?: No Are you currently unemployed and looking for a job?: No Are you interested in more education?: No Please select the resources that you would like help with: None Currently or been in a relationship where the following occur: No concerns reported THRIVE Score: 0 ROSANA-7 AMB Questionnaire ROSANA-7 Date ROSANA - 7 assessed: 02/12/25 Source: Developed by Drs. He Cardozo, Damaris Galindo, Madan Jacome and colleagues, with an educational vonda from [employer]. Review of Systems Const Denies headache(s) Eyes Denies loss of vision ENT Denies vertigo, Denies dizziness, Denies headache(s) and Denies sore throat Card Denies chest pain, Denies leg edema and Denies lightheadedness Resp Denies cough, Denies hemoptysis and Denies wheezing GI Denies abdominal pain, Denies melena, Denies constipation, Denies diarrhea and Denies vomiting Denies dysuria, Denies urinary frequency and Denies urinary urgency Musc Denies arthralgias, Denies joint swelling, Denies numbness and Denies tingling Neuro Denies Abnormal speech present, Denies behavioral changes, Denies vertigo, Den ies dizziness, Denies headache(s), Denies loss of vision, Denies memory loss, Denies numbness and Denies tingling Psych Denies anxiety, Denies behavioral changes, Denies depression, Denies memory loss and Denies panic attacks Eder/Lymph Denies easy bleeding and Denies easy bruising Aller/Immun Denies wheezing Physical exam (Primary Care) Vital Signs: Last Vital Signs Temp 96.9 F 04/16/25 12:53 Pulse 64 04/16/25 12:53 BP 160/90 H 04/16/25 12:53 Pulse Ox 100 04/16/25 12:53 Oxygen Delivery Method Room Air 04/16/25 12:53 Care Plan Goal for BP management: Increase nifedipine dose to 90 mg daily Next steps: Monitoring blood pressure at home- with goal blood pressure to be below 140/90 consistently BMI result Body Mass Index 24.1 Tobacco/Smoking Status: Tobacco use Status Tobacco use date assessed 04/16/25 04/16/25 12:59 Patient Tobacco Use Status Former Tobacco user (09/14/24 04/16/25 12:59 ) Tobacco use type Cigarette 04/16/25 12:59 e-Cigarette/Vaping Use Never Used 04/16/25 12:59 Are you ready to quit: No Tobacco cessation counseling provided: Yes Items discussed: Nicotine replacement Relapse Prevention: discussed the importance of a supportive environment, discussed negative mood or depression after quitting, weight gain after smoking is common and discussed dietary, exercise and/or lifestyle changes Number of minutes spent counselin CPT code: 41661 - 4-10 Minutes Thrive Assessment: Date of Thrive Assessment Date Thrive assessed 02/12/25 04/16/25 12:59 Currently or been in a relationship where the following occur: No concerns reported Const General: healthy appearing, no acute distress, alert and awake Nutritional Appearance: well nourished Orientation/consciousness: oriented to person, oriented to place and oriented to time HENMT Ears: TM's normal bilaterally General nose exam: Normal nasal mucous membranes and turbinates present Eyes Conjunctivae: conjunctivae normal Sclerae: sclerae normal Pupils: Equal, round and reactive pupils present Neck Neck: Yes no lymphadenopathy and Yes no JVD Thyroid: Thyroid normal Carotids: no bruits Resp Effort & Inspection: normal respiratory effort and not tachypneic Auscultation: no crackles, no rales, no rhonchi and no wheezes Cardio Rate: regular rate Rhythm: regular rhythm Heart sounds: no murmurs and normal S1 and S2 GI Palpation (GI): Soft to palpation, nontender, no hepatomegaly and no splenomegaly Auscultation: normal bowel sounds Skin General skin exam: no rashes or lesions noted and dry skin Neuro General: oriented to person, oriented to place and oriented to time Cranial nerves: Yes Equal, round and reactive pupils present Speech: No Abnormal speech present Gait exam (Neuro): Normal gait present Motor exam (neuro): no tremor noted Extrem Right upper extremity: full ROM Left upper extremity: full ROM Right lower extremity: full ROM; no edema Left lower extremity: full ROM; no edema Psych Mental Status: mental status grossly normal Speech and movement: Normal speech and movement present Affect: normal affect Attitude: cooperative Thought process: Normal thought process present Coding Level of Care Code Est Pt Level 4 (68221) Diagnoses Peripheral arterial disease I73.9 Primary hypertension I10 Hypertension type: primary hypertension Ingrown left big toenail L60.0 Additional Codes Vital Signs *Quality* - CPT code: 34861 - 4-10 Minutes ([id number]) Assessment & Plan Assessment & Plan (1) Peripheral arterial disease: Code(s): I73.9 - Peripheral vascular disease, unspecified Category: Medical Plan: For peripheral artery disease, the patient will continue Plavix to improve blood flow, and a potential stent placement is under consideration to alleviate leg symptoms. He will be following up with vascular surgeon in a few weeks. Will add on statin therapy to help reduce his cardiovascular risk (2) HTN (hypertension): Code(s): I10 - Essential (primary) hypertension Category: Medical Qualifiers: Hypertension type: primary hypertension Qualified Code(s): I10 - Essential (primary) hypertension Plan: Patient's blood pressure remains elevated today in office, he does report he does get blood pressures at 120s to 130 systolic more regularly at home. The patient's hypertension management will continue with current medications, including nifedipine, lisinopril, furosemide, carvedilol, and Plavix. Consideration is being given to increasing the nifedipine dosage to better control blood pressure, with a trial of a pill and a half suggested. (3) Ingrown left big toenail: Code(s): L60.0 - Ingrowing nail Category: Medical Plan: The patient is advised to follow up with a auger mill operator for the management of the ingrown toenail and associated fungal infection. A referral has been made, and the patient will be contacted to schedule an appointment. Medications: New atorvastatin (Lipitor) 10 mg PO DAILY 90 tabs 1RF 90 days I73.9 - Peripheral vascular disease, unspecified Changed From clopidogrel (Plavix) 75 mg PO DAILY 30 tabs 0RF I73.9 - Peripheral vascular disease, unspecified To clopidogrel (Plavix) 75 mg PO DAILY 90 tabs 1RF 90 days I73.9 - Peripheral vascular disease, unspecified Refilled lisinopril 40 mg See Protocol PO DAILY 90 tabs 1RF I10 - Essential (primary) hypertension furosemide 40 mg See Protocol PO DAILY 90 tabs 1RF I10 - Essential (primary) h ypertension carvedilol must administer with a meal/food 6.25 mg PO BID 60 tabs 3RF 30 days I10 - Essential (primary) hypertension Discontinued 2 nifedipine ER Discontinued Reason: Doctor's Order 60 mg PO DAILY 30 days 30 tabs 3RF I10 - Essential (primary) hypertension
[2025-04-16 12:53] VITALS: BP 160/90; PULSE 64; TEMP 36.1; O2SAT 100; BMI 24.1
== END 2025-04-16 13:41 | disposition home or self-care (01) ==
LOC: HO.HMCH 12:50
PROVIDERS: PCP Physician Assistant; Visit Provider Physician Assistant
DX: I73.9 Peripheral vascular disease, unspecified (principal); I10 Essential (primary) hypertension; L60.0 Ingrowing nail

== ENCOUNTER 2025-05-01 10:09 | Outpatient (AMB) | payer MEDICARE, SELFPAY ==
[2025-05-01 10:09] VITALS: BP 148/82; BMI 24.1
--- NOTE | 2025-05-01 10:09 | MHC.OFFVIS ---
Vital Signs 05/01/25 10:09 Height 5 ft 10 in Weight 168 lb BMI 24.1 BP 148/82 H Blood Pressure Location Lt brachial Position Sitting Intake Visit Reasons: follow up CTA Abd 03/26/25 Intake Note: follow up CTA w/ runoff 03/26/25, pt states he gets Left LE pain w/ ambulation. Can walk half a block. Started a few years ago. 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 He presents with daughter at bedside.. The patient reports a history of pain in the left calf that began a couple of years ago while shoveling snow. The pain occurs after walking about half a block and has been consistent over time. He also experiences pain when climbing stairs, which he noticed after his 's passing when he began doing more grocery shopping. He smokes a proximally 5 cigarettes a day. He now presents for follow-up with CT angiogram. [facility] Medical History HTN (hypertension) Acute respiratory disease Elevated PSA Cataract Surgical History History of dental surgery History of vasectomy Social History (Updated 05/01/25 @ 10:16 by ROLY Dhaliwal) Household Members: None Housing: House Do you presently have visiting nurse or other home services: No Alcohol intake: never Patient Tobacco Use Status: Current everyday Tobacco user (09/14/24) Tobacco use type: Cigarette Cigarettes Per Day: 5 Years Smoked: 40 plus e-Cigarette/Vaping Use: Never Used Second Hand Smoke Exposure: Yes service: No Current occupational status: retired Current occupation: [employer] Cognitive needs: Yes (Cane) Hearing needs: No Vision needs: Yes (glasses) Review of Systems Const All systems reviewed & are unremarkable except as noted in HPI and below Reports no additional complaints ENT Reports Normal hearing present Card Denies chest pain, Denies chest pain at rest, Denies chest pain with activity and Denies pedal edema Resp Denies cough GI Denies abdominal pain Musc Denies abnormal gait, Denies muscle cramps and Denies radiating pain into limb Skin/Breast Denies skin ulcer and Denies wounds Neuro Reports Normal hearing present and Denies abnormal gait Psych Reports no additional complaints Physical Exam Vital Signs: Last Vital Signs BP 148/82 H 05/01/25 10:09 BMI result Body Mass Index 24.1 Const General: cooperative, healthy appearing and comfortable Orientation/consciousness: oriented to person, oriented to place and oriented to time HEENT Head: Yes normal to inspection Neck Neck: Yes normal visual inspection Carotids: no bruits Chest Chest palpation & inspection: normal inspection of the chest Resp Effort & Inspection: normal respiratory effort and able to speak in complete sentences Auscultation: clear to auscultation bilaterally, no crackles, no rales, no rhonchi and no wheezes Cardio Other: Bilateral DP signals Rate: regular rate Rhythm: regular rhythm Heart sounds: S1 normal heart sound present and S2 normal heart sound present Bruits: no carotid bruits GI Inspection: Yes normal to inspection Skin Wounds: no wounds Hair: normal Neuro General: oriented to person, oriented to place and oriented to time Cranial nerves: Yes CN's II-XII intact bilaterally and Yes Normal hearing present Cognition (Neuro): normal cognition Motor exam (neuro): 5/5 motor strength present throughout Extrem Other: venous exam: No significant superficial varicosities or spider telangiectasias, minimal edema General: No clubbing, No cyanosis and No edema Psych Appearance: grossly normal Mental Status: mental status grossly normal Speech and movement: Normal speech and movement present Results Reviewed Results Reviewed: CT angiogram dated 03/26/2025 demonstrates atherosclerotic disease with concern of left common iliac high-grade stenosis and occlusion of left external iliac. Assessment & Plan Assessment & Plan (1) Peripheral arterial disease: Code(s): I73.9 - Peripheral vascular disease, unspecified Category: Medical Plan: Patient notes leg pain when walking distances. I have discussed the pathophysiology of peripheral vascular disease with the patient. I have also discussed risk factor modification. I have reviewed the patient's arterial testing which reveals left iliac disease. the patient would benefit from a left leg endovascular peripheral angiogram with possible angioplasty, stent, and/or atherectomy. This has been discussed in detail with the patient along with risks, benefits, and complications. This includes but is not limited to bleeding, infection, heart attack, need for emergent surgical repair, limb ischemia, blood vessel damage, bleeding, puncture, kidney injury, bruising, allergic reaction, and skin reaction. The patient demonstrates a clear understanding. We will schedule for the next appropriate time. Thank you for allowing us to assist in this patient's care. Coding Level of Care Code Est Pt Level 4 (56265) Complex EM visit Add On G2211 Diagnoses Peripheral arterial disease I73.9
== END 2025-05-01 10:57 | disposition home or self-care (01) ==
LOC: HO.HVS 10:10
PROVIDERS: PCP Physician Assistant; Visit Provider Surgery Vascular Surgery
DX: I73.9 Peripheral vascular disease, unspecified (principal)
CPT/HCPCS: 99214; G2211

== ENCOUNTER → 2025-05-01 10:09 | Outpatient (BNVA) | payer MEDICARE, SELFPAY | PROVIDERS: PCP Physician Assistant; Visit Provider Surgery Vascular Surgery | DX: I73.9 Peripheral vascular disease, unspecified (principal); F17.210 Nicotine dependence, cigarettes, uncomplicated | CPT/HCPCS: 99212 ==

== ENCOUNTER 2025-05-07 05:55 | Day surgery (SDC) | payer MEDICARE, SELFPAY ==
[2025-05-07] VITALS (18 sets, daily range): BP systolic 161–183; BP diastolic 67–88; PULSE 48–69; RESP 12–23; TEMP 36.5–36.9; O2SAT 95–100; BMI 24.2
[2025-05-07 06:20] LABS: MANUAL DIFF FLAG NO
[2025-05-07 06:24] LABS: Hematocrit 38.1 % (42.0-52.0); Hemoglobin 13.0 g/dl (14.0-18.0); Imm Gran Abs Auto 0.04 X10*3/uL (0.00-0.03); Imm Gran Pct Auto 0.4 % (0.0-0.4); Lymphocytes Absolute Auto 2.0 X10*3/uL (1.2-4.9); Mean Corpuscular HGB Conc 34.1 g/dl (31.0-36.0); Mean Corpuscular Hemoglobin 31.6 pg (27.0-33.0); Mean Corpuscular Volume 92.5 fL (80.0-98.0); NRBC Abs Auto 0.000 X10*3/uL (0.0-0.012); NRBC Pct Auto 0.0 /100WBC (0.0-0.2); Platelet Count 263 X10*3/uL (160-400); Red Blood Count 4.12 X10*6/uL (4.60-5.80); White Blood Count 9.1 X10*3/uL (4.8-10.8)
[2025-05-07 06:32] LABS: Blood Urea Nitrogen 19 mg/dL (9-16); Creatinine Clr Calc Pharmacy 64.4; Estimated Glomerular Filt Rate > 60
[2025-05-07 06:48] LABS: Glucose, Whole Blood 155 mg/dL (60-115)
[2025-05-07] MEDS: Heparin Sodium,Porcine 10,000 UNIT/10 ML VIAL 3000 UNIT IVPUSH (08:21)
--- NOTE | 2025-05-07 08:50 | W.PM.OPN ---
Operative Note Operative Note Date of Service: 05/07/25 Narrative: Angiogram report from [facility] Preoperative diagnosis: Atherosclerosis of bilateral lower extremity with activity limiting claudication Postoperative diagnosis: Same Procedure: 1. Ultrasound-guided right common femoral access 2. Aortogram with bilateral lower extremity runoff 3. Right external iliac plasty Surgeon:Steve Chavira M.D., FACS, RPVI Advisor To Command In Combat:None Anesthesia: Local with moderate conscious sedation. Total intraservice moderate sedation time was 45 minutes. I monitored the patient's level of consciousness and physiologic status continuously throughout the procedure. Specimens:none Drains:none Estimated blood loss: Less than 10 ml Radiation Dose: 361. 5 mGy Implant: Medtronic impact DCB 8 x 60 Indications: 79-year-old gentleman with a history of smoking presents for for left lower extremity activity limiting claudication. He had undergone CT angiogram and now presents for endovascular intervention. The patient has signed the informed consent after reviewing risks, complications, benefits, and alternatives previously discussed with the patient. The patient was given the opportunity to ask any additional questions or voice any concerns. All questions were answered to the patient's satisfaction. Procedure in detail: Patient was brought to the angiography suite prior to which a time-out was called for patient identification and site verification. Bilateral groins were prepped and draped in the standard surgical fashion. Under ultrasound guidance right common femoral was punctured with micro puncture needle and wire. Subsequently a precision 5 [place] sheath was then placed. Bentson wire was advanced to the level of the aorta. 5 [place] Flush catheter was brought up and parked at the level of the renal arteries. Aortogram was then undertaken. Catheter was brought down to the level of the iliac bifurcation. Iliacs and runoff was performed through the flush catheter that was parked at the bifurcation and a power injection was performed to visualize bilateral runoff vessels. We attempted to traverse the left side but it was a complete blockage going all the way down to the common femoral. At this time we then decided to turn our attention to the inflow on the right side. He did have some stenotic areas in the external iliac. At this time we administered 3000 units of systemic heparin we upsized to a short 7 [place] sheath. Through this we advanced a Glidewire advantage. Once we were in the aorta we then exchanged out for a regular 8 x 40 balloon 2 subsequent insufflations of this was undertaken to plasty the external iliac once we did that we then used an 8 x 60 drug coated balloon. This was brought into position in under 3 minutes and insufflated for a total of 3 minutes in duration. Once this was all accomplished completion angiogram demonstrated good result. We then used a 7 [place] CELT closure device. Patient tolerated the procedure well and returned to recovery with stable vitals. Interpretation of films: 1. Ultrasound demonstrates appropriate femoral access site. Vessel was patent with minimal stenosis. Needle entry was visualized. Image of ultrasound was saved. 2. Aortogram demonstrates appropriate caliber aorta. Minimal disease. Appropriate take-off of the renals. 3. Iliac images demonstrate right side moderate stenosis in the external iliac. Some additional calcific disease but not flow-limiting on the right side. Left side total occlusion with reconstitution at the external iliac into the common femoral. 4. Right Leg Common femoral artery: No significant disease Profundus Femoris: No significant disease Superficial femoral artery: Disease at Lester's canal which appears to be moderate but not flow-limiting Popliteal artery (p1,p2,p3): Patent Anterior tibial artery: Patent at origin was unable to reflux contrast down Peroneal artery: Patent at origin was unable to reflux contrast down Posterior tibial artery: Patent at origin unable to reflux contrast down Dorsalis pedis/plantar arch: Not visualize 5.Left Leg Common femoral artery: Reconstitutes at distal 3rd Profundus Femoris: No significant disease Superficial femoral artery: Disease at Lester's canal which appears to be moderate but not flow-limiting Popliteal artery (p1,p2,p3): Patent Anterior tibial artery: Patent at origin was unable to reflux contrast down Peroneal artery: Patent at origin was unable to reflux contrast down Posterior tibial artery: Patent at origin unable to reflux contrast down Dorsalis pedis/plantar arch: Not visualize Conclusion: 1. Successful right iliac plasty will require fem-fem crossover to improve flow to the left lower extremity. 2. Anticoagulation status: No change we will remain on aspirin and Plavix This note is constructed using voice recognition software. While every effort has been made to ensure accuracy, social media strategist errors may have been included. Thank you for allowing me to participate in the care of your patient. Yours sincerely, Steve Chavira MD, FACS, R.P.V.I.
[2025-05-07 13:01] LABS: ACT 200 Celite s (79-173)
== END 2025-05-07 11:07 | disposition home or self-care (01) ==
PROVIDERS: PCP Physician Assistant; Visit Provider Surgery Vascular Surgery
DX: I70.211 Atherosclerosis of native arteries of extremities with intermittent claudication, right leg (principal); I10 Essential (primary) hypertension; J06.9 Acute upper respiratory infection, unspecified; R97.20 Elevated prostate specific antigen [PSA]; L60.0 Ingrowing nail; Z79.899 Other long term (current) drug therapy; Z98.52 Vasectomy status; Z87.891 Personal history of nicotine dependence
CPT/HCPCS: 36415; 37220; 76937; 82565; 82947; 84520; 85025; 85347; 99152; 99153; C1725; C1760; C1769; C1887; C1894; C2623; J1644; J2250; J3010; Q9967

== ENCOUNTER → 2025-05-07 05:55 | Outpatient (BNV) | payer MEDICARE, SELFPAY | PROVIDERS: PCP Physician Assistant; Visit Provider Surgery Vascular Surgery | DX: I70.213 Atherosclerosis of native arteries of extremities with intermittent claudication, bilateral legs (principal) | CPT/HCPCS: 37220; 75625; 75716; 76937; 99152 ==

== ENCOUNTER 2025-05-22 09:10 | Outpatient (AMB) | payer MEDICARE, SELFPAY ==
--- NOTE | 2025-05-22 09:18 | A.OFFVIS_ITS ---
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 The procedure was performed on 05/07/2025, and the patient reports experiencing pain at the puncture site on the right side, which now appears to have improved. The patient has a history of claudication, characterized by pain during walking due to poor blood flow, primarily affecting the left side due to a total left iliac occlusion. The patient underwent a right iliac balloon angioplasty during the angiogram to improve blood flow, with plans for a future femoral to femoral bypass surgery to address the left iliac occlusion. The patient has a history of congestive heart failure, uncontrolled hypertension, and diabetes mellitus, which necessitate cardiac clearance before the planned surgery. The patient denies experiencing shortness of breath but reports difficulty climbing stairs due to leg pain. The patient is currently taking baby aspirin daily and has been advised to continue this indefinitely. [facility] Medical History HTN (hypertension) Acute respiratory disease Elevated PSA Cataract Surgical History History of dental surgery History of vasectomy Social History (Updated 05/22/25 @ 09:20 by ROLY Dhaliwal) Household Members: None Housing: House Do you presently have visiting nurse or other home services: No Alcohol intake: never Patient Tobacco Use Status: Current someday Tobacco user Tobacco use type: Cigarette Cigarettes Per Day: 5 Years Smoked: 40 plus e-Cigarette/Vaping Use: Never Used Second Hand Smoke Exposure: Yes service: No Current occupational status: retired Current occupation: [employer] Cognitive needs: Yes (Cane) Hearing needs: No Vision needs: Yes (glasses) Review of Systems Const All systems reviewed & are unremarkable except as noted in HPI and below Reports no additional complaints ENT Reports Normal hearing present Card Denies chest pain, Denies chest pain at rest, Denies chest pain with activity and Denies pedal edema Resp Denies cough GI Denies abdominal pain Musc Denies abnormal gait, Denies muscle cramps and Denies radiating pain into limb Skin/Breast Denies skin ulcer and Denies wounds Neuro Reports Normal hearing present and Denies abnormal gait Psych Reports no additional complaints Physical Exam Const General: cooperative, healthy appearing and comfortable Orientation/consciousness: oriented to person, oriented to place and oriented to time HEENT Head: Yes normal to inspection Neck Neck: Yes normal visual inspection Carotids: no bruits Chest Chest palpation & inspection: normal inspection of the chest Resp Effort & Inspection: normal respiratory effort and able to speak in complete sentences Auscultation: clear to auscultation bilaterally, no crackles, no rales, no rhonchi and no wheezes Cardio Other: Bilateral DP signals Rate: regular rate Rhythm: regular rhythm Heart sounds: S1 normal heart sound present and S2 normal heart sound present Bruits: no carotid bruits Peripheral pulses: Peripheral pulses 2+ throughout GI Inspection: Yes normal to inspection Skin Wounds: no wounds Hair: normal Neuro General: oriented to person, oriented to place and oriented to time Cranial nerves: Yes CN's II-XII intact bilaterally and Yes Normal hearing present Cognition (Neuro): normal cognition Motor exam (neuro): 5/5 motor strength present throughout Extrem Other: venous exam: No significant superficial varicosities or spider telangiectasias, minimal edema General: No clubbing, No cyanosis and No edema Psych Appearance: grossly normal Mental Status: mental status grossly normal Speech and movement: Normal speech and movement present Assessment & Plan Assessment & Plan (1) Peripheral arterial disease: Comment: 05/07/2025 - right external iliac plasty Code(s): I73.9 - Peripheral vascular disease, unspecified Category: Medical Plan: In short patient has clearly severe activity limiting claudication.I discussed with the patient the findings from the diagnostic angiogram, which revealed a total left iliac occlusion and the need for a femoral to femoral bypass surgery to improve blood flow to the left leg. We reviewed the necessity of cardiac clearance due to the patient's history of congestive heart failure and uncontrolled hypertension. I explained the procedure details, including the use of a plastic tube to connect the right and left groins, and the expected recovery process, including a hospital stay of two to three days with initial ICU observation. At the current time he would like to hold off on any surgery. I did discuss the risks benefits complications of doing so. He is going to have a family discussion regarding his intentions of future surgery. His granddaughter was also at bedside during the discussion. He will reach out to us if he wishes to move forward. He was also notified that it would be over a month or 2 once he decides to move forward for scheduling purposes and cardiac risk stratification. Thank you for allowing us to assist in his care. If there are any questions or concerns please do not hesitate to contact us. Coding Level of Care Code Est Pt Level 4 (14512) Diagnoses Peripheral arterial disease I73.9
== END 2025-05-22 09:48 | disposition home or self-care (01) ==
LOC: HO.HVS 09:11
PROVIDERS: PCP Physician Assistant; Visit Provider Surgery Vascular Surgery
DX: I73.9 Peripheral vascular disease, unspecified (principal)
CPT/HCPCS: 99214

== ENCOUNTER → 2025-05-22 09:10 | Outpatient (BNVA) | payer MEDICARE, SELFPAY | PROVIDERS: PCP Physician Assistant; Visit Provider Surgery Vascular Surgery | DX: I73.9 Peripheral vascular disease, unspecified (principal) | CPT/HCPCS: 99212 ==

== ENCOUNTER 2025-06-11 12:55 | Outpatient (AMB) | payer MEDICARE, SELFPAY ==
[2025-06-11 13:15] VITALS: BP 182/80; PULSE 73; TEMP 36.3; O2SAT 99; BMI 23.4
--- NOTE | 2025-06-11 13:15 | MHC.PC.OV ---
Vital Signs 06/11/25 13:15 06/11/25 13:18 06/11/25 13:43 Height 5 ft 10 in Weight 163 lb BMI 23.4 BP 182/80 H 152/74 H 160/70 H Blood Pressure Location Lt brachial Rt brachial Position Sitting Sitting Pulse 73 Pulse Source Pulse Oximeter Temp 97.3 F Temp Source Oral Pulse Oximetry (%) 99 Intake Visit Reasons: f/u HTN / PAD -okay per Jhonatan Allergies No Known Allergies Allergy (Verified 06/11/25 13:35) Medication List - Last Reconciled 06/11/25 by Guillermo Nicole PA-C acetaminophen 500 mg PO Q6H PRN aspirin 81 mg PO DAILY atorvastatin (Lipitor) 10 mg PO DAILY 90 days blood sugar diagnostic (FreeStyle Lite Strips) Test twice a day as needed blood-glucose meter (FreeStyle Lite Meter kit) As Directed carvedilol 6.25 mg PO BID 30 days clopidogrel (Plavix) 75 mg PO DAILY 90 days furosemide 40 mg See Protocol PO DAILY lancets (FreeStyle Lancets) Test twice a day as needed lisinopril 40 mg See Protocol PO DAILY nifedipine ER 90 mg PO DAILY 30 days pen needle, diabetic Use four times a day or as directed. Tobacco use date assessed: 04/16/25 Fall risk assessment: No Falls in past year Dental Screening Dental Screen Date: 09/20/24 HPI f/u HTN / PAD -tim [place] HPI Details Patient is a 79-year-old male here today for follow-up visit. Patient has a past medical history significant for type 2 diabetes, uncontrolled hypertension, CKD and Congestive heart failure.. .. Hypertension: Current blood pressure med regime-- > lisinopril 40, carvedilol 3 mg b.i.d., nifedipine 90 mg, furosemide 40 at this time. Today's blood pressure in office remains elevated. In home blood pressure readings which do show 150s to 160s systolic We did discuss the need to continue up titrating medication (increasing nifedipine to 120mg) though at this time he is not interested. He has upcoming appointment with Cardiology for risk stratification for major vascular surgery Peripheral ARTERIAL DISEASE: We have started atorvastatin 10 mg to help reduce his cardiovascular risk Regarding his peripheral vascular disease, the patient reports a recent unsuccessful angioplasty of the left leg, which was aborted due to a total blockage. The right leg did undergo an angioplasty during that procedure. He is now contemplating a femoral-femoral crossover bypass surgery for his left leg to treat claudication, as he experiences pain and cramping that limits his ability to walk. He has an upcoming cardiology appointment for presurgical clearance. Tobacco dependency: Unfortunately continues to smoke and has found it very difficult to quit smoking. We did discuss the need to start nicotine replacement to help him completely quit smoking as he has a stab wish peripheral artery disease and uncontrolled blood pressure. I explained to him that there is no interaction between nicotine replacement in any of his medication [facility] [place] Medical History HTN (hypertension) Acute respiratory disease Elevated PSA Cataract Surgical History History of dental surgery History of vasectomy Social History Household Members: None Housing: House Do you presently have visiting nurse or other home services: No Alcohol intake: never Patient Tobacco Use Status: Current everyday Tobacco user Tobacco use type: Cigarette Cigarettes Per Day: 5 Years Smoked: 40 plus e-Cigarette/Vaping Use: Never Used Second Hand Smoke Exposure: Yes service: No Current occupational status: retired Current occupation: [employer] Cognitive needs: Yes (Cane) Hearing needs: No Vision needs: Yes (glasses) Questionnaire PHQ-9 Over the last 2 weeks, how often have you been bothered by any of the following problems? 1. Little interest or pleasure in doing things: several days 2. Feeling down, depressed, or hopeless: several days 3. Trouble falling or staying asleep, or sleeping too much: several days 4. Feeling tired or having little energy: several days 5. Poor appetite or overeating: not at all 6. Feeling bad about yourself - or that you are a failure or have let yourself or your family down: not at all 7. Trouble concentrating on things, such as reading the newspaper or watching television: not at all 8. Moving or speaking so slowly that other people could have noticed. Or the opposite - being so fidgety or restless that you have been moving around a lot more than usual: not at all 9. Thoughts that you would be better off or of hurting yourself in some way: not at all Total score: 4 Depression Screening Interpretation: Positive Depression Screening Follow-up: Existing condition and Declines treatment Depression Screening Done: Yes 50913 - PHQ-9 Billing: Yes Source: Developed by Drs. He Cardozo, Damaris Galindo, Madan Jacome and colleagues, with an educational vonda from [employer]. Thrive Questionnaire Date Thrive assessed: 02/12/25 I am a: Patient What is your living situation today?: I have a steady place to live Within the past 12 months, did the food you bought not last and you didn't have the money to get more?: Never true Within the past 12 months, did you worry whether your food would run out before you got money to buy more?: Never true Do you have trouble paying for medicines?: No Do you have trouble getting transportation to medical appointments?: No Do you have trouble paying your heating and electricity bill?: No Do you have trouble taking care of your child, family member or friend?: No Do you have trouble with day-to-day activities such as bathing, preparing meals, shopping, managing finances, etc.?: No Are you currently unemployed and looking for a job?: No Are you interested in more education?: No Please select the resources that you would like help with: None Currently or been in a relationship where the following occur: No concerns reported THRIVE Score: 0 AUDIT C Alcohol Use Questionnaire (AUDIT-C) 1. How often do you have a drink containing alcohol?: Monthly or less 2. How many drinks containing alcohol do you have on a typical day when you are drinking?: 1 or 2 3. How often do you have six or more drinks on one occasion?: Never Total Score: 1 ROSANA-7 AMB Questionnaire ROSANA-7 Date ROSANA - 7 assessed: 02/12/25 Source: Developed by Drs. He Cardozo, Damaris Galindo, Madan Jacome and colleagues, with an educational vonda from [employer]. Review of Systems Const Denies headache(s) Eyes Denies loss of vision ENT Denies vertigo, Denies dizziness, Denies headache(s) and Denies sore throat Card Denies chest pain, Denies leg edema and Denies lightheadedness Resp Denies cough, Denies hemoptysis and Denies wheezing GI Denies abdominal pain, Denies melena, Denies constipation, Denies diarrhea and Denies vomiting Denies dysuria, Denies urinary frequency and Denies urinary urgency Musc Denies arthralgias, Denies joint swelling, Denies numbness and Denies tingling Neuro Denies Abnormal speech present, Denies behavioral changes, Denies vertigo, Denies dizziness, Denies headache(s), Denies loss of vision, Denies memory loss, Denies numbness and Denies tingling Psych Denies anxiety, Denies behavioral changes, Denies depression, Denies memory loss and Denies panic attacks Eder/Lymph Denies easy bleeding and Denies easy bruising Aller/Immun Denies wheezing Physical exam (Primary Care) Vital Signs: Last Vital Signs Temp 97.3 F 06/11/25 13:15 Pulse 73 06/11/25 13:15 BP 160/70 H 06/11/25 13:43 Pulse Ox 99 06/11/25 13:15 BMI result Body Mass Index 23.4 Tobacco/Smoking Status: Tobacco use Status Tobacco use date assessed 04/16/25 06/11/25 13:22 Patient Tobacco Use Status Current everyday Tobacco 06/11/25 13:22 Tobacco use type Cigarette 06/11/25 13:22 e-Cigarette/Vaping Use Never Used 06/11/25 13:22 PHQ-9: PHQ-9 Score PHQ-9: Total score 4 06/11/25 16:10 Depression Screening Interpretation: Positive Depression Screening Follow-up: Existing condition and Declines treatment Thrive Assessment: Date of Thrive Assessment Date Thrive assessed 02/12/25 06/11/25 13:22 Currently or been in a relationship where the following occur: No concerns reported Const General: healthy appearing, no acute distress, alert and awake Nutritional Appearance: well nourished Orientation/consciousness: oriented to person, oriented to place and oriented to time HENMT Ears: TM's normal bilaterally General nose exam: Normal nasal mucous membranes and turbinates present Eyes Conjunctivae: conjunctivae normal Sclerae: sclerae normal Pupils: Equal, round and reactive pupils present Neck Neck: Yes no lymphadenopathy and Yes no JVD Thyroid: Thyroid normal Carotids: no bruits Resp Effort & Inspection: normal respiratory effort and not tachypneic Auscultation: no crackles, no rales, no rhonchi and no wheezes Cardio Rate: regular rate Rhythm: regular rhythm Heart sounds: no murmurs and normal S1 and S2 GI Palpation (GI): Soft to palpation, nontender, no hepatomegaly and no splenomegaly Auscultation: normal bowel sounds Skin General skin exam: no rashes or lesions noted and dry skin Neuro General: oriented to person, oriented to place and oriented to time Cranial nerves: Yes Equal, round and reactive pupils present Speech: No Abnormal speech present Gait exam (Neuro): Normal gait present Motor exam (neuro): no tremor noted Extrem Right upper extremity: full ROM Left upper extremity: full ROM Right lower extremity: full ROM; no edema Left lower extremity: full ROM; no edema Psych Mental Status: mental status grossly normal Speech and movement: Normal speech and movement present Affect: normal affect Attitude: cooperative Thought process: Normal thought process present Coding Level of Care Code Est Pt Level 4 (97042) Diagnoses Peripheral arterial disease I73.9 Primary hypertension I10 Hypertension type: primary hypertension Additional Codes PHQ-9 - 56835 - PHQ-9 Billing: Yes ([id number]) Assessment & Plan Assessment & Plan (1) Peripheral arterial disease: Comment: 05/07/2025 - right external iliac plasty Code(s): I73.9 - Peripheral vascular disease, unspecified Category: Medical Plan: For peripheral artery disease, the patient will continue Plavix to improve blood flow, and a potential stent placement is under consideration to alleviate leg symptoms. He is considering major arterial bypass surgery in his lower extremities. He will need cardiovascular evaluation for surgical clearance. (2) HTN (hypertension): Code(s): I10 - Essential (primary) hypertension Category: Medical Qualifiers: Hypertension type: primary hypertension Qualified Code(s): I10 - Essential (primary) hypertension Plan: Patient's blood pressure remains elevated today in office, he does report he does get blood pressures at 120s to 130 systolic more regularly at home. The patient's hypertension management will continue with current medications, including nifedipine, lisinopril, furosemide, carvedilol, and Plavix. Consideration is being given to increasing the nifedipine dosage to better control blood pressure. Unfortunately patient not willing to increase any of his hypertensive medication at this time. He will continue monitoring his blood pressure at home Orders: Orders Comprehensive [place]. Panel Fast 06/11/25 I10 - Essential (primary) hypertension Complete Blood Count no Diff 06/11/25 I10 - Essential (primary) hypertension Lipid Panel 06/11/25 I73.9 - Peripheral vascular disease, unspecified
[2025-06-11 13:18] VITALS: BP 152/74
[2025-06-11 13:43] VITALS: BP 160/70
== END 2025-06-11 13:45 | disposition home or self-care (01) ==
LOC: HO.HMCH 12:56
PROVIDERS: PCP Physician Assistant; Visit Provider Physician Assistant
DX: I73.9 Peripheral vascular disease, unspecified (principal); I10 Essential (primary) hypertension

== ENCOUNTER → 2025-06-11 12:55 | Outpatient (BNVA) | payer MEDICARE, SELFPAY | PROVIDERS: PCP Physician Assistant; Visit Provider Physician Assistant | DX: I73.9 Peripheral vascular disease, unspecified (principal); I10 Essential (primary) hypertension | CPT/HCPCS: 96127; 99212 ==

== ENCOUNTER 2025-06-16 11:03 | Outpatient (AMB) | payer MEDICARE, SELFPAY ==
--- NOTE | 2025-06-16 11:13 | A.OFFVIS_ITS ---
Vital Signs 06/16/25 11:16 Height 5 ft 10 in Weight 163 lb 2.273 oz BMI 23.4 BP 148/80 H Blood Pressure Location Lt brachial Position Sitting Pulse 72 Pulse Source Monitor Intake Visit Reasons: Preop/ Cait/femoral bypass Allergies No Known Allergies Allergy (Verified 06/11/25 13:35) Medication List - Last Reconciled 06/16/25 by Lamine Tong MD acetaminophen 500 mg PO Q6H PRN aspirin 81 mg PO DAILY atorvastatin (Lipitor) 10 mg PO DAILY 90 days blood sugar diagnostic (FreeStyle Lite Strips) Test twice a day as needed blood-glucose meter (FreeStyle Lite Meter kit) As Directed carvedilol 6.25 mg PO BID 30 days clopidogrel (Plavix) 75 mg PO DAILY 90 days furosemide 40 mg See Protocol PO DAILY lancets (FreeStyle Lancets) Test twice a day as needed lisinopril 40 mg See Protocol PO DAILY nifedipine ER 90 mg PO DAILY 30 days pen needle, diabetic Use four times a day or as directed. HPI Comments Details: Patient has been referred for preoperative risk stratification before femoral to femoral bypass surgery. He was seen earlier this year in the hospital in consultation. Based on that note, no regular physician follow-up at that time. He was not taking any medications. History of poorly controlled hypertension b ut still not taking any medications. He was admitted for acute shortness of breath from uncontrolled hypertension. He was appropriately treated and discharged home. He has not been seen in follow-up since. It seems that he has been having claudication symptoms for which he was seen by vascular surgery and there is a plan for potentially revascularization. From the cardiac standpoint, he states he is not limited but he can go up only about 10 steps or so before he stops because of the left calf claudication. Within that time, he has not noticed any definitive chest pain or shortness of breath. Blood pressure is still high but not as bad as before. [facility] Medical History HTN (hypertension) Acute respiratory disease Elevated PSA Cataract Surgical History History of dental surgery History of vasectomy Family History (Updated 06/16/25 @ 11:26 by Dara Bush) Mother No problems noted. Father No problems noted. Social History (Updated 06/16/25 @ 11:26 by Dara Bush) Household Members: None Housing: House Do you presently have visiting nurse or other home services: No Alcohol intake: current Alcohol intake frequency: holidays/special occasions only Alcohol type: beer Patient Tobacco Use Status: Current everyday Tobacco user Tobacco use type: Cigarette Cigarettes Per Day: 5 Years Smoked: 40 plus e-Cigarette/Vaping Use: Never Used Second Hand Smoke Exposure: Yes service: No Current occupational status: retired Current occupation: [employer] Cognitive needs: Yes (Cane) Hearing needs: No Vision needs: Yes (glasses) Review of Systems Const Denies weakness ENT Denies dizziness Card Denies chest pain, Denies chest pain with activity, Denies syncope, Denies rapid heart rate, Denies pedal edema, Denies edema, Denies leg edema, Denies lightheadedness, Denies palpitations, Denies dyspnea, Denies dyspnea on exertion and Denies orthopnea Resp Denies cough, Denies dyspnea and Denies dyspnea on exertion GI Denies hematochezia and Denies change in stool character Musc Denies abnormal gait, Denies muscle cramps, Denies muscle weakness, Denies numbness, Denies radiating pain into limb and Denies tingling Neuro Denies abnormal gait, Denies dizziness, Denies syncope, Denies numbness, Denies tingling and Denies weakness Endo Denies palpitations Physical Exam Vital Signs: Last Vital Signs Pulse 72 06/16/25 11:16 BP 148/80 H 06/16/25 11:16 BMI result Body Mass Index 23.4 Const General: comfortable and no acute distress Orientation/consciousness: patient oriented x3 HEENT Other: Unremarkable Head: Yes normal to inspection Neck Neck: Yes normal visual inspection Chest Chest palpation & inspection: normal inspection of the chest Resp Auscultation: clear to auscultation bilaterally Cardio Palpation: normal PMI Heart sounds: S1 normal heart sound present, S2 normal heart sound present, no gallops, no murmurs and no rubs GI Palpation (GI): Soft to palpation Back/Spine/Pelvis Other: unremarkable Skin General skin exam: no rashes or lesions noted Neuro General: patient oriented x3 Extrem General: Yes normal to inspection Psych Mental Status: mental status grossly normal Office Procedures EKG Details: EKG with underlying artifact; underlying rhythm is sinus with rate of 72/Min; bifascicular block pattern. cannot exclude old inferior infarct. 51941-[id number], Complete Assessment & Plan Assessment & Plan (1) Preoperative cardiovascular examination: Code(s): Z01.810 - Encounter for preprocedural cardiovascular examination Category: Medical (2) HTN (hypertension): Code(s): I10 - Essential (primary) hypertension Category: Medical Qualifiers: Hypertension type: primary hypertension Qualified Code(s): I10 - Essential (primary) hypertension (3) Chronic heart failure with preserved ejection fraction: Code(s): I50.32 - Chronic diastolic (congestive) heart failure Category: Medical (4) Tobacco dependence: Code(s): F17.200 - Nicotine dependence, unspecified, uncomplicated Category: Medical (5) PVD (peripheral vascular disease): Code(s): I73.9 - Peripheral vascular disease, unspecified Category: Medical Plan In the echocardiogram, LVEF is 60%. Severe left ventricular hypertrophy. No significant valvular findings. Extensive lower extremity vascular disease based on CTA as well as vascular surgery notes. Considering the fact that there is a long history of noncompliance and not taking blood pressure medication, continued smoking, prior hospitalization for congestive heart failure, he will need a diagnostic catheterization for further evaluation. We discussed about this today. However, patient states that he may choose not to even go for the vascular surgery. He wants to think about it 1st before planning anything. Discussion Notes I explained to the patient that before clearance for the proposed leg bypass surgery can be given, a more thorough cardiac evaluation is necessary. I discussed that due to the patient's history of congestive heart failure and known blockages in the legs, there is a high probability of blockages in the heart arteries, which poses a significant risk of heart attack during major surgery. I recommended a cardiac angiogram, explaining that it is the necessary test to visualize the heart's arteries and assess the level of blockage. The patient expressed ambivalence about proceeding with the leg surgery and the associated cardiac workup, citing age as a concern. We agreed that the patient will take time to consider these options, and I will see the patient back in one month to discuss the decision. Patient was informed and verbally consented to the use of an ambient scribe for clinic note documentation during this visit. Patient Instructions: - Before you can have surgery on your leg, you need more tests on your heart to make sure the surgery is safe for you. - We recommend a heart test called a cardiac angiogram to check for any blockages in your heart's arteries. - You have the choice to not have the leg surgery or the heart test. - Please take some time to think about whether you want to go forward with surgery. - It is very important that you continue to not smoke. - We will schedule a follow-up appointment in one month to talk about your decision. Coding Level of Care Code Est Pt Level 4 (54854) Complex visit Add On G2211 Diagnoses Preoperative cardiovascular examination Z01.810 Primary hypertension I10 Hypertension type: primary hypertension Chronic heart failure with preserved ejection fraction I50.32 Tobacco dependence F17.200 PVD (peripheral vascular disease) I73.9 CPT Codes EKG - CPT: 55013-Jwvpstvfxigixggpo, Complete ([id number])
[2025-06-16 11:16] VITALS: BP 148/80; PULSE 72; BMI 23.4
== END 2025-06-16 11:42 | disposition home or self-care (01) ==
LOC: HO.HCS 11:04
PROVIDERS: PCP Physician Assistant; Visit Provider Internal Medicine
DX: Z01.810 Encounter for preprocedural cardiovascular examination (principal); I10 Essential (primary) hypertension; I50.32 Chronic diastolic (congestive) heart failure; F17.200 Nicotine dependence, unspecified, uncomplicated; I73.9 Peripheral vascular disease, unspecified
CPT/HCPCS: 93010; 99214; G2211

== ENCOUNTER → 2025-06-16 11:03 | Outpatient (BNVA) | payer MEDICARE, SELFPAY | PROVIDERS: PCP Physician Assistant; Visit Provider Internal Medicine | DX: Z01.810 Encounter for preprocedural cardiovascular examination (principal); I10 Essential (primary) hypertension; I50.32 Chronic diastolic (congestive) heart failure; F17.200 Nicotine dependence, unspecified, uncomplicated; I73.9 Peripheral vascular disease, unspecified | CPT/HCPCS: 93005; 99212 ==

== ENCOUNTER 2025-07-16 11:24 | Outpatient (AMB) | payer MEDICARE, SELFPAY ==
--- OUTSIDE RECORDS SUMMARY | 2025-07-15 08:00 | XMS_ITS ---
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 Name Role Phone Guillermo Nicole Primary Care Provider Cait Remy Unavailable [phone] Roosevelt Tompkins Unavailable [phone] REASON FOR VISIT r/s for sooner apt Encounters Encounter Location Date Provider Diagnosis [address] [address] 07/15/2025 Roosevelt Tompkins Plan Of Treatment Next Appt Details Provider Name:Cait Gonzalez sugar, 09/17/2025 02:45:00 PM, [address] [place] [address], [id number], Progress Notes * Martin ROBERTS LDOB:0 1945 (79 yo M)Acc No.[id number]:07/15/2025 Progress Notes Patient: Marissa Martin MUNIZ Provider: Miguelina Tompkins DPM :1945 A ge:79 Y S ex:Male Date:07/15/2025 Address:[address] [id number] Pcp:Guillermo Nicole Subjective: * Chief Complaints: * 1 . R/s for sooner apt. * Medical History: Objective: * Vitals: Assessment: Plan: * Treatment: * Images: * The named appointment provid er may or may not be the originator of this progress note, and it is not deemed complete until electronically signed by the appointment provider. Sign off status: Pending * Provider: Miguelina Tompkins DPM Date: 09/15/2024 Generated for Tremaine Ortiz on: 09/16/2024 11:27 AM EST
--- OUTSIDE RECORDS SUMMARY | 2025-07-16 11:27 | XMS_ITS | Patient Health Record ---
Author Organization [facility] [place] Address [address] [facility] [place] [address] Care Team Providers Care Edge Runner Name Role Phone Guillermo Nicole Primary Care Provider Unavailab Cait Layton Unavailable [phone] Roosevelt Tompkins Unavailable [phone] Allergies No Known Allergies Results Component Value Reference Range Notes HEMOGLOBIN A1C (GLYCOHEMOGLO BIN) Reviewed date:06/18/2025 10:28:53 AM Interpretation: Performing Lab: Notes/Report: HEMOGLOBIN A1C % (HH) 7.4 Reason For Referral No Information Medications Medication SIG (Take, Route, Frequency, Duration) Notes Start Date End Date Status Furosemide 40 MG 1 tablet Orally Once a day Active NIFEdipine ER 90 MG 1 tablet on an empty stomach Orally Once a day Active Carvedilol 6.25 MG 1 tablet with food O rally Twice a day Active Lisinopril 40 MG 1 tablet Orally Once a day Active Clopidogrel Bisulfate 75 MG 1 tablet Ora lly Once a day Active Aspirin 81 MG 1 tablet Orally Once a day Active Lipitor 10 MG 1 tablet Orally Once a day Active Fiber - as directed Orally A ctive Probiotic Active Immunizations Vaccine Route Administration Date Status Comme nts Influenza Unknown 03/26/2025 Administered Social History Tobacco Use: Social History Observation Description Date Details (start date - stop date) Current Smoker 05/29/1985 - NA Tobacco use other than smoking: Question Answer Notes Are you an other tobacco user? No Tobacco Control (Standard) Question Answer Notes Tobacco use: Current smoker When did you start smoking? 05/29/1985 How often do you smoke cigarettes? Every day How many cigarettes a day do you smoke? 6-10 How soon after you wake up d o you smoke your first cigarette? 6-30 minutes Are you interested in quitting? Thinking about q uitting AUDIT-C (Standard) Question Answer Notes Did you have a drink containing alcohol in the p ast year? No Points 0 Interpretation Negative Problems Problem Type SNOMED Code ICD Code Onset Dates Problem Status W/U Status Risk Notes Problem Acquired hammer toe of right foot (46468978256636 05) Other hammer toe(s) (acquired), right foot (M20.41) Active confirmed Problem Type 2 diabetes mellitus with peripheral angiopathy (629330338) Type 2 diabetes mellitus with diabetic peripheral angiopathy without gangrene (E11.51) Active confirmed Q7(A), Q8(2B), Q9(1B,2C) Problem Acquired hammer toe of left foot (72272653420013 03) Other hammer toe(s) (acquired), left foot (M20.42) Active confirmed Problem Peripheral circulatory disorder associated with type 1 diabetes mellitus (487880310) Type 1 diabetes mellitus with diabetic peripheral angiopathy without gangrene (E10.51) Active confirmed Q7(A), Q8(2B), Q9(1B,2C) Vital Signs Blood pressure diastolic 70 mm Hg 06/18/2025 Height 3wc59pw in 06/18/2025 Blood pressure systolic 143 mm Hg 06/18/2025 Weight 165 lbs 06/18/2025 BMI 23.67 kg/m2 06/18/2025 Procedures Procedure Date Ordered Date Performed Result Body Sit e 76360-ZVAYQKM NAIL, 6 OR MORE 06/18/2025 N/A 17095-NUDK SKIN LESIONS, 2 TO 4 06/18/2025 N/A Encounters Encounter Location Date Provider Diagnosis [facility] [address] [place] [address] 06/18/2025 Cait To Pain in right toe(s) M79.674 ; Onychomycosis B35.1 ; Pain in left toe(s) M79.675 ; Type 2 diabetes mellitus with diabetic peripheral angiopathy without gangrene E11.51 ; Tinea unguium B35.1 ; Other hammer toe(s) (acquired), right foot M20.41 and Other hammer toe(s) (acquired), left foot M20.42 [facility] [address] [place] [address] 05/14/2025 Roosevelt Tompkins Assessments Encounter Date Diagnosis (ICD Code) Assessment Notes Treatment Notes Treatment Clinical Notes Section Notes 06/18/2025 Pain in right toe(s) (ICD-10 - M79.674) 06/18/2025 Onychomycosis (ICD-10 - B35.1) 06/18/2025 Pain in left toe(s) (ICD-10 - M79.675) 06/18/2025 Type 2 diabetes mellitus with diabetic peripheral angiopathy without gangrene (ICD-10 - E11.51) Q7(A), Q8(2B), Q9(1B,2C) 06/18/2025 Tinea unguium (ICD-10 - B35.1) 06/18/2025 Other hammer toe(s) (acquired), right foot (ICD-10 - M20.41) Patient Educated with: DIABETIC FOOT CARE INSTRUCTIONS.p df (DIABETIC FOOT CARE INSTRUCTIONS.p df) 06/18/2025 Other hammer toe(s) (acquired), left foot (ICD-10 - M20.42) Plan Of Treatment Pending Test Test Name Order Date 09422-RDHBTAO NAIL, 6 OR MORE 06/18/2025 53434-BTLY SKIN LESIONS, 2 TO 4 06/18/20 Next Appt Details Provider Name:Cait Gonzalez sugar, 09/17/2025 02:45:00 PM, [address] [facility], [place], [address], Insurance Providers Payer Name Payer Address Payer Phone Subscriber Number Group Number Insured Name Patient Relationship to Insured Coverage Start Date Coverage End Date Medicare [facility] [address] [place] [address] [id number] Martin Erickson Self - patient is the insured 1 Medical (General) History Medical History History ICD Code Cataracts type II diabetes Gallstones High Blood Pressure Kidney disease Numbness Poor circulation Chicken pox Surgical History Surgery Date(Month/Year) angioplasty, right lower extremity 05/07 cataract surgery
[2025-07-16 11:35] VITALS: BP 190/80; PULSE 68; O2SAT 99; BMI 24.1
--- NOTE | 2025-07-16 11:35 | HO.NEPHOV_ITS ---
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 He had not followed with a medical provider for decades prior to 2022. He denied chest pain, nausea, vomiting, diarrhea, sick contacts, recent travel. Echo showed normal left ventricular systolic function. The calculated ejection fraction is 60%. Doppler did not show any evidence of renal artery stenosis or abnormal waveforms bilaterally . He claims to be compliant with his medications. His BP control is better but still not optimal [facility] Medical History (Updated 06/16/25 @ 11:56 by Lamine Tong MD) HTN (hypertension) Acute respiratory disease Elevated PSA Cataract Surgical History (Updated 07/16/25 @ 11:38 by ROLY Serrano) H/O angioplasty (~04/2025) History of dental surgery History of vasectomy Family History Mother No problems noted. Father No problems noted. Social History Household Members: None Housing: House Do you presently have visiting nurse or other home services: No Alcohol intake: current Alcohol intake frequency: holidays/special occasions only Alcohol type: beer Patient Tobacco Use Status: Current everyday Tobacco user Tobacco use type: Cigarette Cigarettes Per Day: 5 Years Smoked: 40 plus e-Cigarette/Vaping Use: Never Used Second Hand Smoke Exposure: Yes service: No Current occupational status: retired Current occupation: [employer] Cognitive needs: Yes (Cane) Hearing needs: No Vision needs: Yes (glasses) Review of Systems Const All systems reviewed & are unremarkable except as noted in HPI and below Physical Exam Vital Signs: Last Vital Signs Pulse 68 07/16/25 11:35 BP 190/80 H 07/16/25 11:35 Pulse Ox 99 07/16/25 11:35 Oxygen Delivery Method Room Air 07/16/25 11:35 BMI result Body Mass Index 24.1 Const General: comfortable and no acute distress Orientation/consciousness: patient oriented x3 HEENT Head: Yes normocephalic Mouth: Normal oral and palatal mucosa present Eyes EOM: EOMs intact bilaterally Neck Neck: Yes supple Resp Auscultation: clear to auscultation bilaterally Cardio Jugular venous distension: no JVD Rate: regular rate GI Palpation (GI): Soft to palpation Auscultation: normal bowel sounds General: Yes no CVA tenderness Back/Spine/Pelvis Back: no CVA tenderness Skin General skin exam: no rashes or lesions noted Neuro General: patient oriented x3 and moves all extremities Extrem General: Yes no pedal edema Results Reviewed Nephrology Results: Hgb, (14.0-18.0) 13.0 g/dl L 05/07/25 WBC, (4.8-10.8) 9.1 X10*3/uL 05/07/25 Plt Count, (160-400) 263 X10*3/uL 05/07/25 BUN, (9-16) 19 mg/dL H 05/07/25 Creatinine, (0.5-1.4) 0.96 mg/dL 05/07/25 Renal US 09/16/24 Assessment & Plan Assessment & Plan (1) HTN (hypertension): Code(s): I10 - Essential (primary) hypertension Category: Medical Qualifiers: Hypertension type: primary hypertension Qualified Code(s): I10 - Essential (primary) hypertension (2) CKD stage 3a, GFR 45-59 ml/min: Code(s): N18.31 - Chronic kidney disease, stage 3a Category: Medical Plan Mild CKD in a setting of longstanding hypertension. No KYLER by Doppler;Low sodium diet C/W Carvedilol 6.25 mg PO bid; On ACEI Increased Nifedipineto 120 mg daily May be able to cut back diuretics with time No NSAID's and good hydration; FU given Medications: Changed From nifedipine ER 90 mg PO DAILY 30 days 30 tabs 2RF I10 - Essential (primary) hypertension To nifedipine ER 120 mg (2 x 60 mg) PO DAILY 60 tabs 6RF 30 days I10 - Essential (primary) hypertension Coding Level of Care Code Est Pt Level 4 (32992) Diagnoses Primary hypertension I10 Hypertension type: primary hypertension CKD stage 3a, GFR 45-59 ml/min N18.31
== END 2025-07-16 11:58 | disposition home or self-care (01) ==
LOC: HO.HKA 11:25
PROVIDERS: PCP Physician Assistant; Visit Provider Internal Medicine Nephrology
DX: I10 Essential (primary) hypertension (principal); N18.31 Chronic kidney disease, stage 3a
CPT/HCPCS: 99214

== ENCOUNTER → 2025-07-16 11:24 | Outpatient (BNVA) | payer MEDICARE, SELFPAY | PROVIDERS: PCP Physician Assistant; Visit Provider Internal Medicine Nephrology | DX: I15.0 Renovascular hypertension (principal); N18.31 Chronic kidney disease, stage 3a | CPT/HCPCS: 99212 ==